=== PATIENT | male | born 1945 | race Caucasian/White ===

== ENCOUNTER → 2016-10-29 | Outpatient (CLI) | payer OTHER, MEDICARE | LOC: FIMAGING 11:28 | PROVIDERS: ATTEND Internal Medicine Hematology & Oncology | DX: J90 Pleural effusion, not elsewhere classified (principal); C92.10 Chronic myeloid leukemia, BCR/ABL-positive, not having achieved remission ==

== ENCOUNTER → 2017-09-04 | Outpatient (CLI) | payer OTHER, MEDICARE ==
[~2017-09-04] MED LIST: IOPAMIDOL (ISOVUE 370) 100 ML BTL IV ONE
== END ==
LOC: FIMAGING 09:54
PROVIDERS: ATTEND Internal Medicine Cardiovascular Disease
DX: I73.9 Peripheral vascular disease, unspecified (principal); I77.1 Stricture of artery; I70.1 Atherosclerosis of renal artery
CPT/HCPCS: 75635; Q9967

== ENCOUNTER → 2017-11-17 | Outpatient (CLI) | payer OTHER, MEDICARE | LOC: BHFA 15:30 | PROVIDERS: ATTEND Internal Medicine Cardiovascular Disease | DX: I73.9 Peripheral vascular disease, unspecified (principal) ==

== ENCOUNTER → 2017-11-24 | Day surgery (SDC) | payer OTHER, MEDICARE ==
[~2017-11-24] MED LIST changes: +ASPIRIN EC 325 MG TAB PO ONE; +DIAZEPAM 5 MG TAB PO ONE; +FAMOTIDINE 20 MG TAB PO ONE; +HEPARIN 10,000 UNIT/10 ML MDV (1,000 UNIT/ML) ONE; -IOPAMIDOL (ISOVUE 370) 100 ML BTL IV ONE; +IOPAMIDOL (ISOVUE-300) 150 ML BTL ONE; +IOPAMIDOL (ISOVUE-370) 150 ML BTL IV ONE; +LIDOCAINE 1% 300 MG/30 ML SDV ONE; +MIDAZOLAM 2 MG/2 ML VIAL ONE; +NITROGLYCERIN 0.4 MG BTL SL PRN; +NS 1,000 ML IV ONE; +diphenhydrAMINE 25 MG CAP PO ONE; +fentaNYL 100 MCG/2 ML INJ ONE
--- NOTE | 2017-11-24 07:52 | CPEKG ---
Heart Rate: 66 RR Interval: 909 P-R Interval: 176 QRSD Interval: 92 QT Interval: 388 QTC Interval: 407 P [place]: 81 QRS [place]: 86 T Wave [place]: 46 EKG Severity - OTHERWISE NORMAL ECG - EKG Impression: SINUS RHYTHM EKG Impression: BORDERLINE RIGHT AXIS DEVIATION EKG Impression: No significant change from December 13, 2011 Electronically Signed By: Devon Swanson 24-Nov-2017 10:42:33
[2017-11-24 08:08] LABS: PLATELET COUNT 216 10^3/uL (150-400)
[2017-11-24 08:16] LABS: INR 0.95 (0.83-1.16); PROTIME(PATIENT) 12.9 SEC (12.0-15.0)
--- NOTE | 2017-11-24 08:27 | PDHPUP ---
History & Physical Update H&P update statement: This history and physical update is based on an assessment of the patient which was completed after admission or registration (within 24 hours), but prior to the surgery/procedure. H&P update: H&P reviewed & patient examined, no change in patient's condition since H&P completed
--- NOTE | 2017-11-24 08:27 | PDPROPOC ---
Sedation Plan of Care Sedation Plan of Care: vital signs stable, mental status noted, patient educated of risks, benefits, alternatives, patient can tolerate sedation ASA Classification: ASA 2 Planned drugs: fentanyl, midazolam Mallampati Score: Class 1 Mallampati Reference Image: Patient passed 3-3-2 rule?: Yes
--- NOTE | 2017-11-24 10:43 | CPIP ---
[f rep st] INVASIVE CARDIAC PROCEDURE DATE OF PROCEDURE: 11/24/2017 PROCEDURES PERFORMED: 1. Abdominal aortography. 2. Left lower extremity angiography via contralateral approach with catheter placed in the left comm on femoral artery. 3. Right lower extremity angiography via ipsilateral approach with catheter placed in the right comm on iliac artery. INDICATION: Progressive claudication. ACCESS: The patient was prepped and draped in the sterile fashion. 1% lidocaine was used to anesthe tize the right inguinal region. A 6-Lao introducer sheath was placed selectively into the right c ommon femoral artery via modified Seldinger technique. ABDOMINAL AORTOGRAPHY: A 6-Lao pigtail catheter was placed in the abdominal aorta and position ve rified by angiography. Images were obtained via power injection through the [employer] system. The abdo henok aorta bifurcated into left and right renal arteries. The right renal artery appeared to have a n ostial 40% stenosis present. The left renal artery had a proximal 60% stenosis present. The remai nder of the aorta was free of any significant disease. In the distal portion of the aorta the blood vessel bifurcated into the left and right common iliac arteries. The left lower extremity angiograph y via contralateral approach with catheter placed in the left common femoral artery. A Contra 2 cath eter was advanced into the distal abdominal aorta and reformed into its usual shape. The Contra 2 ca theters then used to engage the left common iliac artery. The left common iliac artery then bifurcat ed into the left internal iliac artery and left external iliac artery. The left common iliac artery had mild luminal irregularities throughout. There was no stenosis greater than 10%. The left biology intern al iliac artery had an ostial 20% stenosis present. The left external iliac artery appeared normal. The left external iliac artery then turned into the left common femoral artery. The left common fem oral artery appeared normal. An angled Glidewire was then advanced into the left superficial femoral artery and the Contra 2 catheter was exchanged for a straight flush catheter and imaging of the sage sarah of the left lower extremity was obtained. The left common femoral artery bifurcated into the l eft superficial femoral artery and left profunda femoral artery. The left common femoral artery appe ared normal. The left superficial femoral artery was diffusely diseased in the proximal segment with 6 lesions approaching 80% severity. In the mid segment, there is a single discrete occlusion approx imately 10 cm. The vessel then reconstituted prior to turning into the popliteal artery. The poplit eal artery had a proximal 70% stenosis present as well as a long segmental 50% stenosis in the mid ve ssel. Below the knee, there was 2-vessel runoff. Right lower extremity angiography via ipsilateral approach with catheter placed in the right common iliac artery. The straight flush catheter was plac ed in the right common iliac artery and images obtained via hand injection. The right common iliac a rtery bifurcated into the right internal iliac artery and right external iliac artery. The right int ernal iliac artery had mild luminal irregularities with no stenosis greater than 10%. The right inte rnal iliac artery appeared normal. The right external iliac artery appeared normal. The remainder o f the right lower extremity was obtained via hand injection through the 6-Lao introducer sheath. The right common femoral artery bifurcated into the superficial femoral artery and profunda femoral a rtery. The right common femoral artery had mild luminal irregularities throughout. There was no krystal nosis greater than 10%. The right superficial femoral artery had an ostial 95% stenosis present. In the mid vessel, there was a long segmental occlusion. The blood vessel recannulated in the mid to d istal region and then turned into the popliteal artery which appeared free of any significant disease . Below the knee there is 3 vessel runoff. COMPLICATIONS: None. CONCLUSIONS: 1. Bilateral renal artery stenosis, moderate in severity. 2. High-grade disease involving the left superficial femoral artery and popliteal artery. 3. High-grade disease involving the right superficial femoral artery at the ostium and proximal segm ent. 4. Plan is for surgical evaluation. /[id number]/MODL
== END | disposition home or self-care (01) ==
LOC: FCATH 07:17
PROVIDERS: ATTEND Internal Medicine Cardiovascular Disease
PROC: 04HC33Z Insertion of Infusion Device into Right Common Iliac Artery, Percutaneous Approach (ICD-10-PCS; principal; 2017-11-24)
PROC: 04HL33Z Insertion of Infusion Device into Left Femoral Artery, Percutaneous Approach (ICD-10-PCS; principal; 2017-11-24)
DX: I70.1 Atherosclerosis of renal artery (principal); I77.9 Disorder of arteries and arterioles, unspecified; I25.10 Atherosclerotic heart disease of native coronary artery without angina pectoris; E78.5 Hyperlipidemia, unspecified; C92.10 Chronic myeloid leukemia, BCR/ABL-positive, not having achieved remission
CPT/HCPCS: 36247; 75625; 75630; 75716; 93005; C1769; J1644; J2250; J3010; Q9967

== ENCOUNTER 2017-12-16 08:45 | Inpatient (IN) | payer OTHER, MEDICARE ==
[2017-12-16] MEDS ORDERED: LR 1,000 ML IV ONE (08:57)
[2017-12-16] MEDS ORDERED: LIDOCAINE 1% 2 ML INJ ID PRN (08:57)
[2017-12-16] MEDS ORDERED: THROMBIN (BOVINE) 20,000 UNIT SPRAY TP ONE (09:05)
[2017-12-16] MEDS ORDERED: PROTAMINE SULFATE 50 MG/5 ML VIAL IVP ONE (09:05)
[2017-12-16] MEDS ORDERED: PAPAVERINE HCL 60 MG/2 ML SDV ONE (09:05)
[2017-12-16] MEDS ORDERED: BUPIVACAINE 0.5% 30 ML SDV ONE (09:05)
[2017-12-16] MEDS ORDERED: IOTHALAMATE MEG (CONRAY) 50 ML VIAL IV ONE (09:06)
--- NOTE | 2017-12-16 09:38 | PDANEPAE ---
ANE History of Present Illness PAD s/f L fem/pop ANE Past Medical History - Cardiovascular History Hx Hypertension: No Hx Arrhythmias: No Hx Chest Pain: No Hx Coronary Artery / Peripheral Vascular Disease: Yes Hx CHF / Valvular Disease: No Hx Palpitations: No Cardiovascular History Comment: PULM HTN SECONDARY TO RX - Pulmonary History Hx COPD: No Hx Asthma/Reactive Airway Disease: No Hx Recent Upper Respiratory Infection: No Hx Oxygen in Use at Home: No Hx Sleep Apnea: No Sleep Apnea Screening Result - Last Documented: Positive Pulmonary History Comment: PLEURAL EFFUSION SECONDARY TO MEDICATION - Neurologic History Hx Seizures: No - Endocrine History Hx Diabetes: No - Renal History Hx Renal Disorders: Yes Renal History Comment: RENAL ARTERY STENOSIS - Liver History Hx Hepatic Disorders: No - Neurological & Psychiatric Hx Hx Neurological and Psychiatric Disorders: No - Cancer History Hx Cancer: Yes Cancer History Comment: LEUKEMIA. PROSTATE - Congenital Disorder History Hx Congenital Disorders: No - GI History Hx Gastrointestinal Disorders: Yes Gastrointestinal History Comment: REFLUX - Other Health History Other Health History: PVD - Chronic Pain History Chronic Pain: Yes (LOWER LEGS AND FEET) - Surgical History Prior Surgeries: BRACHY THERAPY OF PROSTATE. LT KNEE ACL ANE Review of Systems Review of Systems: - Exercise capacity METS (RN): 4 METS ANE Patient History - Allergies Allergies/Adverse Reactions: adhesive tape Allergy (Verified 12/09/17 11:24) BLISTERS latex Allergy (Verified 11/19/17 13:45) monosodium glutamate Allergy (Verified 12/09/17 11:23) ASTHMA - Home Medications Home medications: home medication list seen and reviewed Home Medications: Acetaminophen [Tylenol 325mg (*)] 325 mg PO Q6HRS PRN 11/17/17 [Last Taken Unknown] Albuterol [Proventil Inhaler HFA (*)] 1 - 2 puffs IH Q4H PRN 11/17/17 [Last Taken Unknown] Aspirin [Aspirin 81mg (*)] 81 mg PO HS 11/17/17 [Last Taken 12/09/17] Atorvastatin Calcium [Lipitor] 40 mg PO DAILY 11/17/17 [Last Taken 12/16/17 07: 00] Bosutinib [Bosulif] 500 mg PO DAILY@12 11/17/17 [Last Taken 12/15/17 12:00] Multivitamins [Multivitamin (*)] 1 each PO DAILY 11/17/17 [Last Taken 12/09/17] amLODIPine BESYLATE [Norvasc 5 mg (*)] 5 mg PO DAILY 11/17/17 [Last Taken 07:00] Herbals/Supplements -Info Only 1 ea PO DAILY 12/16/17 [Last Taken Unknown] - NPO status NPO Since - Liquids (Date): 12/16/17 NPO Since - Liquids (Time): 08:00 (pom juice) NPO Since - Solids (Date): 12/15/17 NPO Since - Solids (Time): 19:00 - Anes Hx Anes Hx: no prior problems - Smoking Hx Smoking Status: Never smoked - Alcohol Use Alcohol Use: Rarely ANE Labs/Vital Signs - Labs - CBC WBC: reviewed and okay - Vital Signs Blood Pressure: 130/63 Heart Rate: 60 Respiratory Rate: 14 O2 Sat (%): 96 Height: 182.88 cm Weight: 70.307 kg ANE Physical Exam - Airway Neck exam: FROM Mallampati Score: Class 2 Mouth exam: normal dental/mouth exam - Pulmonary Pulmonary: no respiratory distress - Cardiovascular Cardiovascular: regular rate and rhythym - ASA Status ASA Status: II ANE Anesthesia Plan Anesthesia Plan: general endotracheal anesthesia Total IV Anesthesia: No
[2017-12-16] MEDS ORDERED: ceFAZolin 2 GM/SWFI 2 GM/20 ML SYR IVP ONE (09:47)
[2017-12-16] MEDS ORDERED: fentaNYL 100 MCG/2 ML INJ ONE ×2 (09:53→11:01)
[2017-12-16] MEDS ORDERED: LIDOCAINE 2% 100 MG/5 ML SYR ONE (09:53)
[2017-12-16] MEDS ORDERED: PROPOFOL/EMULSION 500 MG/50 ML BOTTLE IV ONE ×2 (09:53→11:38)
[2017-12-16] MEDS ORDERED: LIDOCAINE 2% JELLY 5 ML TUBE ONE (09:58)
[2017-12-16] MEDS ORDERED: DEXAMETHASONE 4 MG/ML VIAL ONE ×2 (10:03)
[2017-12-16] MEDS ORDERED: HEPARIN 10,000 UNIT/10 ML MDV (1,000 UNIT/ML) ONE (11:31)
[2017-12-16] MEDS ORDERED: epHEDrine SULFATE 10 MG/ML SYR ONE ×2 (11:41)
[2017-12-16] MEDS ORDERED: PHENYLEPHRINE HCL 100 MCG/ML SYR ONE (12:49)
[2017-12-16] MEDS ORDERED: ALBUTEROL 3 ML DEYVIAL IH PRN (13:13)
[2017-12-16] MEDS ORDERED: ACETAMINOPHEN 500 MG TAB PO PRN (13:13)
[2017-12-16] MEDS ORDERED: LR 500 ML IV PRN (13:13)
[2017-12-16] MEDS ORDERED: LABETALOL HCL 5 MG/ML 20 ML MDV IVP PRN (13:13)
[2017-12-16] MEDS ORDERED: PHENYLEPHRINE HCL 100 MCG/ML SYR IVP PRN (13:13)
[2017-12-16] MEDS ORDERED: ONDANSETRON 4 MG/2 ML VIAL IVP PRN ×2 (13:13→13:50)
[2017-12-16] MEDS ORDERED: PROMETHAZINE HCL 25 MG/ML INJ IVP PRN (13:13)
[2017-12-16] MEDS ORDERED: MEPERIDINE 25 MG/0.5 ML AMP IVP PRN (13:13)
[2017-12-16] MEDS ORDERED: oxyCODONE IR 5 MG TAB PO PRN (13:13)
[2017-12-16] MEDS ORDERED: fentaNYL 100 MCG/2 ML INJ IVP PRN (13:13)
[2017-12-16] MEDS ORDERED: METOCLOPRAMIDE 10 MG/2 ML VIAL IVP PRN (13:13)
[2017-12-16] MEDS ORDERED: HYDROCODONE/APAP 5/325 TAB PO PRN (13:13)
[2017-12-16] MEDS ORDERED: DEXAMETHASONE 4 MG/ML VIAL IVP PRN (13:13)
[2017-12-16] MEDS ORDERED: NALOXONE HCL 0.4 MG/ML INJ IVP PRN (13:13)
[2017-12-16] MEDS ORDERED: OXYCODONE/APAP 5/325 TAB PO PRN (13:50)
[2017-12-16] MEDS ORDERED: HYDROmorphone HCL/NS 0.5 MG/ML SYR IVP PRN (13:50)
[2017-12-16] MEDS ORDERED: ALBUTEROL 60 PUFFS/8 GM MDI IH PRN (13:50)
--- NOTE | 2017-12-16 13:53 | POSTOPPROG ---
Post Op Note Date of Operation: 12/16/17 Surgeon: Alexander Jeong Supervisor Statement Clerks: Kait Allen Anesthesiologist: Chad Aguilera Anesthesia: GET(General Endotracheal) Pre-op Diagnosis: limiting claudication, PAD Post-op Diagnosis: same Procedure: L below knee fem pop bypass c reverse saphenous vein graft Findings: palpable pedal pulse post procedure Inf/Abcess present in the surg proc area at time of surgery?: No EBL: 50-100 Complications: none
[2017-12-16] MEDS ORDERED: NS W/ 20 KCl/L 1,000 ML IV SCH (14:00)
--- NOTE | 2017-12-16 14:38 | PDMN ---
Medical Necessity Medical necessity: IP surgery per [facility] cpt [id number] L fem pop bypass
[2017-12-16] MEDS: ASPIRIN 81 MG CHEWABLE TAB PO SCH (20:49)
[2017-12-16] MEDS: DOCUSATE SODIUM 100 MG CAP PO SCH (20:51)
[2017-12-16] MEDS ORDERED: CALCIUM CARBONATE 500 MG CHEWABLE TAB PO PRN (21:03)
[2017-12-17] MEDS: amLODIPine BESYLATE 5 MG TAB PO SCH (08:07)
[2017-12-17] MEDS: ATORVASTATIN CALCIUM 40 MG TAB PO SCH (08:07)
[2017-12-17] MEDS: DOCUSATE SODIUM 100 MG CAP PO SCH ×2 (08:07→20:51)
--- NOTE | 2017-12-17 10:59 | SOAPPROG ---
ANTONI Progress Note Assessment/Plan: Assessment: 72 y/o M s/p left fem/pop bypass with saphenous vein graft POD#1 S: Reports that he is doing well. Pain well controlled. Would like to have lang removed and would like to get out of bed today. O: Alert Afebrile VSS Chest: CTA bilaterally LLE: dressing with serosang drainage on medial section. +pedal pulses with both doppler and palpation. Mild edema. Plan: RN to change dressing today. D/c lang. Ok to get OOB with PT. Discussed with pt avoiding bending LLE at knee as much as possible. 12/17/17 10:56 Objective: Vital Signs Temp Pulse Resp BP Pulse Ox 36.6 C 63 14 129/69 H 96 12/17/17 08:00 12/17/17 08:00 12/17/17 08:00 12/17/17 08:07 12/17/17 08:00 Laboratory Results 12/17/17 04:10 12/17/17 04:10 12/16/17 12/17/17 12/18/17 05:59 05:59 05:59 Intake Total 3040 Output Total 1700 Balance 1340 ICD10 Worksheet Patient Problems: Problems Problem Status Onset Peripheral vascular disease Acute - ICD10 Problem Qualifiers (1) Peripheral vascular disease
[2017-12-17] MEDS: BOSUTINIB 500 MG PO SCH (13:49)
[2017-12-17] MEDS: ASPIRIN 81 MG CHEWABLE TAB PO SCH (20:51)
[2017-12-18] MEDS: amLODIPine BESYLATE 5 MG TAB PO SCH (07:58)
[2017-12-18] MEDS: ATORVASTATIN CALCIUM 40 MG TAB PO SCH (07:58)
[2017-12-18] MEDS: DOCUSATE SODIUM 100 MG CAP PO SCH ×2 (08:00→20:53)
[2017-12-18] MEDS: ENOXAPARIN 40 MG/0.4 ML SYR SC SCH (08:00)
[2017-12-18] MEDS: BOSUTINIB 500 MG PO SCH (12:22)
--- NOTE | 2017-12-18 15:02 | SOAPPROG ---
ANTONI Progress Note Assessment/Plan: Assessment: 72 y/o M s/p left fem/pop bypass with saphenous vein graft POD#1 S: Reports that he is doing well. Pain well controlled. Would like to have lang removed and would like to get out of bed today. O: Alert Afebrile VSS Chest: CTA bilaterally LLE: dressing with serosang drainage on medial section. +pedal pulses with both doppler and palpation. Mild edema. Plan: RN to change dressing today. D/c lang. Ok to get OOB with PT. Discussed with pt avoiding bending LLE at knee as much as possible. 12/17/17 10:56 12/18/17 15:00 Continuing to improve. Got up with PT several times yesterday. Some soreness with ambulation, but otherwise pain is controlled. Pt thinks he'll be ready to go home tomorrow. Afebrile. +pedal pulses. Incisions cdi. Objective: Vital Signs Temp Pulse Resp BP Pulse Ox 36.9 C 78 16 132/59 H 94 12/18/17 08:00 12/18/17 08:00 12/18/17 08:00 12/18/17 08:00 12/18/17 08:00 Laboratory Results 12/17/17 04:10 12/17/17 04:10 12/17/17 12/18/17 12/19/17 05:59 05:59 05:59 Intake Total 3040 640 Output Total 1700 1225 Balance 1340 -585 ICD10 Worksheet Patient Problems: Problems Problem Status Onset Peripheral vascular disease Acute - ICD10 Problem Qualifiers (1) Peripheral vascular disease
--- NOTE | 2017-12-18 17:27 | ASMTCMCOM ---
CM Note CM Note Notes: Reviewed chart and discussed w/RN. Pt is s/p fem pop bypass. He lives at home w/. PT/OT have cleared pt . Anticipate dc home w/. CM available if any dc needs arise. Date Signed: 12/18/2017 05:26 PM Electronically Signed By:Julianne Jain RN
[2017-12-18] MEDS: ASPIRIN 81 MG CHEWABLE TAB PO SCH (20:53)
[2017-12-19 07:59] VITALS: BP 131/63
[2017-12-19] MEDS: amLODIPine BESYLATE 5 MG TAB PO SCH (09:25)
[2017-12-19] MEDS: DOCUSATE SODIUM 100 MG CAP PO SCH (09:25)
[2017-12-19] MEDS: ATORVASTATIN CALCIUM 40 MG TAB PO SCH (09:25)
[2017-12-19] MEDS: ENOXAPARIN 40 MG/0.4 ML SYR SC SCH (09:48)
--- NOTE | 2017-12-19 10:27 | SOAPPROG ---
ANTONI Progress Note Assessment/Plan: Assessment: 72 y/o M s/p left fem/pop bypass with saphenous vein graft POD#1 S: Reports that he is doing well. Pain well controlled. Would like to have lang removed and would like to get out of bed today. O: Alert Afebrile VSS Chest: CTA bilaterally LLE: dressing with serosang drainage on medial section. +pedal pulses with both doppler and palpation. Mild edema. Plan: RN to change dressing today. D/c lang. Ok to get OOB with PT. Discussed with pt avoiding bending LLE at knee as much as possible. 12/17/17 10:56 12/18/17 15:00 Continuing to improve. Got up with PT several times yesterday. Some soreness with ambulation, but otherwise pain is controlled. Pt thinks he'll be ready to go home tomorrow. Afebrile. +pedal pulses. Incisions cdi. 12/19/17 10:26 Continues to improve. Good pulses. Incisions cdi. Afebrile. H&H stable. Plan for discharge home today. Pt's will be home to help him. Follow up with Dr. Jeong next week. Objective: Vital Signs Temp Pulse Resp BP Pulse Ox 37.1 C 72 16 131/63 H 92 12/19/17 07:58 12/19/17 07:58 12/19/17 07:58 12/19/17 09:25 12/19/17 07:58 Laboratory Results 12/19/17 09:45 12/19/17 09:45 12/18/17 12/19/17 12/20/17 05:59 05:59 05:59 Intake Total 640 750 Output Total 1225 400 Balance -585 750 -400 ICD10 Worksheet Patient Problems: Problems Problem Status Onset Peripheral vascular disease Acute - ICD10 Problem Qualifiers (1) Peripheral vascular disease
[2017-12-19] MEDS: BOSUTINIB 500 MG PO SCH (11:23)
--- NOTE | 2017-12-22 19:12 | POSTANESTH ---
Post Anesthetic Evaluation Cardiovascular Status: Similar to Pre-Op Cond Respiratory Status: Similar to Pre-op Cond. Level of Consciousness/Mental Status: Can Participate in Eval Pain Control: Adequate, Prn Tx Ordered Nausea/Vomiting Control: Adequate, Prn Tx Ordered Complications Possibly Related to Anesthesia: None Noted (visited 12/17/17)
== END 2017-12-19 12:28 | disposition home or self-care (01) | DRG 253 ==
LOC: F2W 08:45 → F2N 14:52 → F3E 12-17 16:22
PROVIDERS: ADMIT Surgery; ATTEND Surgery
PROC: 041L09L Bypass Left Femoral Artery to Popliteal Artery with Autologous Venous Tissue, Open Approach (ICD-10-PCS; principal; 2017-12-16 10:15)
PROC: 06BQ0ZZ Excision of Left Saphenous Vein, Open Approach (ICD-10-PCS; principal; 2017-12-16 10:15)
DX: I70.213 Atherosclerosis of native arteries of extremities with intermittent claudication, bilateral legs (principal); I70.1 Atherosclerosis of renal artery; T45.1X5A Adverse effect of antineoplastic and immunosuppressive drugs, initial encounter; C92.10 Chronic myeloid leukemia, BCR/ABL-positive, not having achieved remission; I27.21 Secondary pulmonary arterial hypertension; I25.10 Atherosclerotic heart disease of native coronary artery without angina pectoris; E78.5 Hyperlipidemia, unspecified; K21.9 Gastro-esophageal reflux disease without esophagitis; Z85.46 Personal history of malignant neoplasm of prostate
CPT/HCPCS: 97116-GP; 97161-GP; 97165-GO; 97535-GO; G8978-GP-CI; G8979-GP-CH; G8987-GO-CJ; G8988-GO-CI; J0690; J1100; J1644; J1650; J2001; J2270; J2370; J2440; J2704; J2720; J3010; Q9961

== ENCOUNTER → 2018-02-17 | Outpatient (CLI) | payer OTHER, MEDICARE | LOC: FIMAGING 13:59 | PROVIDERS: ATTEND Physician Assistant | DX: M79.89 Other specified soft tissue disorders (principal); M79.662 Pain in left lower leg ==

== ENCOUNTER 2018-02-23 05:47 | Inpatient (IN) | payer OTHER, MEDICARE ==
[2018-02-23] MEDS ORDERED: ceFAZolin 2 GM/DEXTROSE 100 ML IV ONE (06:02)
[2018-02-23] MEDS ORDERED: LR 1,000 ML IV ONE (06:03)
[2018-02-23] MEDS ORDERED: LIDOCAINE 1% 2 ML INJ ID PRN (06:03)
[2018-02-23] MEDS ORDERED: LIDOCAINE 1% 2 ML INJ ONE (06:08)
[2018-02-23] MEDS ORDERED: ALBUTEROL 3 ML DEYVIAL IH PRN (07:01)
[2018-02-23] MEDS ORDERED: ONDANSETRON 4 MG/2 ML VIAL IVP PRN (07:01)
[2018-02-23] MEDS ORDERED: NS 500 ML IV PRN (07:01)
[2018-02-23] MEDS ORDERED: HYDROmorphONE/DILAUDID 1 MG/ML INJ IVP PRN ×2 (07:01→10:11)
[2018-02-23] MEDS ORDERED: fentaNYL 100 MCG/2 ML INJ IVP PRN (07:01)
[2018-02-23] MEDS ORDERED: NALOXONE HCL 0.4 MG/ML INJ IVP PRN (07:01)
--- NOTE | 2018-02-23 07:01 | PDANEPAE ---
ANE History of Present Illness here for fem pop ANE Past Medical History - Cardiovascular History Hx Hypertension: Yes Hx Arrhythmias: No Hx Chest Pain: No Hx Coronary Artery / Peripheral Vascular Disease: Yes Hx CHF / Valvular Disease: No Hx Palpitations: No Cardiovascular History Comment: PULM HTN SECONDARY TO RX. PVD - Pulmonary History Hx COPD: No Hx Asthma/Reactive Airway Disease: No Hx Recent Upper Respiratory Infection: No Hx Oxygen in Use at Home: No Hx Sleep Apnea: No Sleep Apnea Screening Result - Last Documented: Positive Pulmonary History Comment: reduced lung function r/t luekemia med - Neurologic History Hx Cerebrovascular Accident: No Hx Seizures: No Hx Dementia: No - Endocrine History Hx Diabetes: No - Renal History Hx Renal Disorders: No Renal History Comment: RENAL ARTERY STENOSIS - Liver History Hx Hepatic Disorders: No - Neurological & Psychiatric Hx Hx Neurological and Psychiatric Disorders: Yes Neurological / Psychiatric History Comment: 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 PROSTATE - Congenital Disorder History Hx Congenital Disorders: No - GI History Hx Gastrointestinal Disorders: Yes Gastrointestinal History Comment: REFLUX - Other Health History Other Health History: mild rash r/t leukemia medication to hands and arms. incontinence - Chronic Pain History Chronic Pain: No - Surgical History Prior Surgeries: BRACHY THERAPY OF PROSTATE. LT KNEE ACL. left fempop bypass ANE Review of Systems Review of systems is: negative Review of Systems: - Exercise capacity Exercise capacity: >=4 METS METS (RN): 4 METS ANE Patient History - Allergies Allergies/Adverse Reactions: adhesive tape Allergy (Verified 02/19/18 16:56) BLISTERS latex Allergy (Verified 02/19/18 16:56) monosodium glutamate Allergy (Verified 02/19/18 16:56) ASTHMA - Home Medications Home medications: home medication list seen and reviewed Home Medications: Aspirin [Aspirin 81mg (*)] 81 mg PO HS 11/17/17 [Last Taken 02/22/18] Atorvastatin Calcium [Lipitor] 40 mg PO DAILY 11/17/17 [Last Taken 02/22/18] Bosutinib [Bosulif] 500 mg PO DAILY@12 11/17/17 [Last Taken 02/21/18] Multivitamins [Multivitamin (*)] 1 each PO DAILY 11/17/17 [Last Taken 02/22/18] amLODIPine BESYLATE [Norvasc 5 mg (*)] 5 mg PO DAILY 11/17/17 [Last Taken ] Herbals/Supplements -Info Only 1 ea PO DAILY 12/16/17 [Last Taken 02/20/18] - NPO status NPO Status: no food or drink >8 hours NPO Since - Liquids (Date): 02/23/18 NPO Since - Liquids (Time): 01:00 NPO Since - Solids (Date): 02/22/18 NPO Since - Solids (Time): 19:00 - Smoking Hx Smoking Status: Never smoked - Family Anes Hx Family Hx Anesthesia Complications: none ANE Labs/Vital Signs - Vital Signs Vital Signs: reviewed preoperatively; see RN documention for details Blood Pressure: 127/64 Heart Rate: 65 Respiratory Rate: 22 O2 Sat (%): 91 Height: 182.88 cm Weight: 68.039 kg ANE Physical Exam - Airway Neck exam: FROM Mallampati Score: Class 1 - Pulmonary Pulmonary: no respiratory distress - Cardiovascular Cardiovascular: regular rate and rhythym - ASA Status ASA Status: II ANE Anesthesia Plan Anesthesia Plan: GA w LMA
[2018-02-23] MEDS ORDERED: fentaNYL 100 MCG/2 ML INJ ONE ×2 (07:04→07:49)
--- NOTE | 2018-02-23 07:10 | PDHPUP ---
History & Physical Update H&P update statement: This history and physical update is based on an assessment of the patient which was completed after admission or registration (within 24 hours), but prior to the surgery/procedure. H&P update: H&P reviewed & patient examined, no change in patient's condition since H&P completed H&P changes: Cardiac: Regular rate and rhythm. Respiratory: Lungs clear to auscultation bilaterally, no increased work of breathing.
[2018-02-23] MEDS ORDERED: THROMBIN (BOVINE) 20,000 UNIT SPRAY TP ONE (07:21)
[2018-02-23] MEDS ORDERED: BUPIVACAINE 0.25% 30 ML SDV ONE (07:21)
[2018-02-23] MEDS ORDERED: PROTAMINE SULFATE 50 MG/5 ML VIAL IVP ONE (07:21)
[2018-02-23] MEDS ORDERED: PROPOFOL/EMULSION 500 MG/50 ML BOTTLE IV ONE (07:28)
[2018-02-23] MEDS ORDERED: HYDROmorphONE/DILAUDID 2 MG/ML INJ ONE (09:47)
--- NOTE | 2018-02-23 10:10 | POSTOPPROG ---
Post Op Note Date of Operation: 02/23/18 Surgeon: Alexander Jeong Park Interpretive Ranger: Jacki Anesthesiologist: Bossman Anesthesia: GET(General Endotracheal) Pre-op Diagnosis: Peripheral vascular disease Post-op Diagnosis: same Indication: pain Procedure: Right fem-pop bypass with goretex graft, R popliteal endarterectomy Findings: Significant plaque throughout R SFA and R popliteal artery Inf/Abcess present in the surg proc area at time of surgery?: No Depth: Deep Incisional (Fascial) EBL: Minimal
[2018-02-23] MEDS ORDERED: oxyCODONE IR 5 MG TAB PO PRN (10:11)
[2018-02-23] MEDS ORDERED: ACETAMINOPHEN 325 MG TAB PO PRN (10:12)
[2018-02-23] MEDS ORDERED: ONDANSETRON DISINTEGRATING 4 MG TAB PO PRN (10:12)
[2018-02-23] MEDS ORDERED: IBUPROFEN 200 MG TAB PO PRN (10:13)
[2018-02-23] MEDS: BOSUTINIB 500 MG PO SCH (12:05)
--- NOTE | 2018-02-23 12:17 | PDMN ---
Medical Necessity Medical necessity: IP surgery per [facility] cpt [id number] R fem-pop bypass
--- NOTE | 2018-02-23 12:25 | ASMTCMCOM ---
CM Note CM Note Notes: Patient is s/p R fem-pop bypass with goretex graft and R popliteal endartectomy. He lives with his and is normally independent. PT has been ordered. Case Management will follow for discharge planning. Case Management d/c plan: TBD Date Signed: 02/23/2018 12:25 PM Electronically Signed By:Judie Landon RN
--- NOTE | 2018-02-23 15:55 | POSTANESTH ---
Post Anesthetic Evaluation Cardiovascular Status: Normal, Stable Respiratory Status: Normal, Stable Level of Consciousness/Mental Status: Can Participate in Eval Pain Control: Adequate, Prn Tx Ordered Nausea/Vomiting Control: Adequate, Prn Tx Ordered Complications Possibly Related to Anesthesia: None Noted
--- NOTE | 2018-02-23 18:03 | SOAPPROG ---
SOAP Progress Note Assessment/Plan: Assessment: POSTOP RIGHT FEM-POP BYPASS: DOING WELL, GOOD PULSES, WOUNDS CLEAN DRY AND INTACT Plan: AMBULATE IN THE A.M. 02/23/18 18:03 Objective: Vital Signs Temp Pulse Resp BP Pulse Ox 36.3 C 69 16 132/69 H 93 02/23/18 14:44 02/23/18 14:44 02/23/18 14:44 02/23/18 14:44 02/23/18 14:44 02/22/18 02/23/18 02/24/18 05:59 05:59 05:59 Intake Total 1290 Output Total 350 Balance 940 ICD10 Worksheet Patient Problems: Problems Problem Status Onset Peripheral vascular disease Acute
[2018-02-23] MEDS ORDERED: ASPIRIN 81 MG CHEWABLE TAB PO SCH (21:00)
[2018-02-24] MEDS ORDERED: ATORVASTATIN CALCIUM 40 MG TAB PO SCH (09:00)
[2018-02-24] MEDS ORDERED: amLODIPine BESYLATE 5 MG TAB PO SCH (09:00)
[2018-02-24] MEDS: BOSUTINIB 500 MG PO SCH (12:53)
--- NOTE | 2018-02-24 14:53 | ASMTCMCOM ---
CM Note CM Note Notes: PT has seen pt and cleared. Anticipate d/c with no CM needs but will continue to follow for any change in needs. Date Signed: 02/24/2018 02:52 PM Electronically Signed By:AYAD Batista
[2018-02-24 15:03] VITALS: BP 121/61
--- NOTE | 2018-02-24 16:42 | SOAPPROG ---
SOAP Progress Note Assessment/Plan: Assessment: POSTOP RIGHT FEM-POP BYPASS: DOING WELL, GOOD PULSES, WOUNDS CLEAN DRY AND INTACT Plan: AMBULATE IN THE A.M. 02/23/18 18:03 02/24/18 16:40 DOING VERY WELL/EXCELLENT PULSES/WOUND OKAY/AFEBRILE/AMBULATING ADEQUATELY PLAN HOME TODAY/LIMITATIONS DISCUSSED Objective: Vital Signs Temp Pulse Resp BP Pulse Ox 36.6 C 61 18 121/61 H 97 02/24/18 14:58 02/24/18 14:58 02/24/18 14:58 02/24/18 14:58 02/24/18 14:58 02/23/18 02/24/18 02/25/18 05:59 05:59 05:59 Intake Total 3240 Output Total 1700 400 Balance 1540 -400 ICD10 Worksheet Patient Problems: Problems Problem Status Onset Peripheral vascular disease Acute
--- NOTE | 2018-03-05 18:40 | GOP ---
[f rep st] OPERATIVE REPORT DATE OF OPERATION: 02/23/2018 SURGEON: Alexander Jeong MD IRRIGATION FLUME LAYER: Ling Echeverria NP. ANESTHESIOLOGIST: Dr. Keita. PREOPERATIVE DIAGNOSIS: Right leg claudication. POSTOPERATIVE DIAGNOSIS: Right leg claudication. PROCEDURE PERFORMED: Right femoral-popliteal bypass with [place] graft and a right popliteal artery endarterectomy. FINDINGS: The patient was found to have significant plaque throughout his right SFA and popliteal ar leslie. It was a very soft plaque and easy to dissect. This required endarterectomy at the proximal p opliteal artery to have a patent bypass. DESCRIPTION OF PROCEDURE: The patient was taken to the operating room where he received a satisfacto ry general endotracheal anesthesia by Dr. Keita. He was placed in the supine position, prepped and draped in usual sterile fashion. A right groin incision was made, and dissection was carried down th rough the subcutaneous tissue. The superficial femoral, profunda femoris, and common femoral arterie s were dissected free and controlled with vessel loops. A second incision was made in the medial asp ect of the thigh. Dissection extended down the Héctor canal, which was widely opened, and dissection extended down to the popliteal artery and posteriorly behind the knee. Popliteal artery was control led with vessel loops. Patient was systemically heparinized, and after adequate circulation time, th e soft popliteal artery was opened; however, it was filled with some dissecting plaque. A distal end arterectomy was done down to a good feathered end. The plaque was anchored down with 6-0 Prolene sut ures. There was adequate backflow from the distal popliteal artery. An end-to-side 6 mm [place] gr aft was sutured to the popliteal artery with a running Hemashield 7 suture. The wound irrigated well , and there was some backflow from the [place] vessels. The [place] graft was then passed through a subsartorial tunnel up to the groin incision, with care to avoid twisting or kinking of the graft. P roximal anastomosis was made to the common femoral artery in an end-to-side manner. This was done wi th a Hemashield 6 suture. All vessels were flushed prior to completion of the anastomosis, and flow was first established down the superficial femoral artery, then down the profunda femoris artery, and then down the bypass graft. The patient responded with excellent blood flow down the leg and palpab le pedal pulses. The suture line appeared to be hemostatic. Heparin was reversed with protamine. W ounds were irrigated, and hemostasis was assured. Topical thrombin was placed in both incisions, and they were closed with 2-0 Vicryl for the deep fascia, 3-0 Vicryl for the subcu, and 4-0 Monocryl mat tress sutures for the skin. He tolerated the procedure well. He was taken to the recovery room in g ood condition. Blood loss was negligible. There were no complications. /[id number]/MODL
--- NOTE | 2018-03-12 12:38 | GDS ---
[f rep st] DISCHARGE SUMMARY DISCHARGE DIAGNOSES: Peripheral vascular disease. CONSULTATIONS: None. SPECIAL TESTS: None. PROCEDURES: Right femoral popliteal bypass with [place] graft and a right popliteal artery endarter ectomy. INTRAOPERATIVE FINDINGS: The patient was found to have significant plaque throughout his right SFA a nd popliteal artery. It was very soft plaque and easy to dissect. This required an endarterectomy at the proximal popliteal artery to have a patent bypass. HOSPITAL COURSE: This is a 72-year-old male with a history of peripheral vascular disease who was ad mitted to the hospital to undergo planned right femoral popliteal bypass surgery on his right leg. He tolerated the procedure well and his postoperative course was unremarkable. On the day of his surge ry, he was kept on bedrest and asked to not bend his knee in a 90 degree angle. The day following hi s surgery, he was able to ambulate with Physical Therapy. His pain was well controlled. He had good pulses and his incisions were clean, dry, and intact. He was discharged on postop day 2 in good con dition. He was discharged home with his . He was asked to follow up in our office in 1 week. He was discharged on a baby aspirin as well as Lipitor 40 mg, in addition to his other daily medication s. He was asked to call our office with fever, chills, or increased pain. For an accurate medicatio n list, please see MAR. Burrell #: [id number]
== END 2018-02-24 17:46 | disposition home or self-care (01) | DRG 254 ==
LOC: F3N 05:47 → F3E 11:30
PROVIDERS: ADMIT Surgery; ATTEND Surgery
DX: I73.9 Peripheral vascular disease, unspecified (principal); I10 Essential (primary) hypertension; I27.20 Pulmonary hypertension, unspecified; K21.9 Gastro-esophageal reflux disease without esophagitis; I25.10 Atherosclerotic heart disease of native coronary artery without angina pectoris; E78.5 Hyperlipidemia, unspecified; Z85.46 Personal history of malignant neoplasm of prostate; Z85.6 Personal history of leukemia
CPT/HCPCS: 97161-GP; C1768; G8978-GP-CI; G8979-GP-CI; G8980-GP-CI; J0690; J1170; J1644; J2704; J2720; J3010

== ENCOUNTER → 2018-03-31 | Outpatient (CLI) | payer OTHER, MEDICARE ==
[~2018-03-31] MED LIST changes: -ASPIRIN EC 325 MG TAB PO ONE; -DIAZEPAM 5 MG TAB PO ONE; -FAMOTIDINE 20 MG TAB PO ONE; -HEPARIN 10,000 UNIT/10 ML MDV (1,000 UNIT/ML) ONE; +IOPAMIDOL (ISOVUE 370) 100 ML BTL IV ONE; -IOPAMIDOL (ISOVUE-300) 150 ML BTL ONE; -IOPAMIDOL (ISOVUE-370) 150 ML BTL IV ONE; -LIDOCAINE 1% 300 MG/30 ML SDV ONE; -MIDAZOLAM 2 MG/2 ML VIAL ONE; -NITROGLYCERIN 0.4 MG BTL SL PRN; -NS 1,000 ML IV ONE; -diphenhydrAMINE 25 MG CAP PO ONE; -fentaNYL 100 MCG/2 ML INJ ONE
== END ==
LOC: FIMAGING 13:54
PROVIDERS: ATTEND Surgery
DX: T82.868A Thrombosis due to vascular prosthetic devices, implants and grafts, initial encounter (principal); I70.213 Atherosclerosis of native arteries of extremities with intermittent claudication, bilateral legs
CPT/HCPCS: 75635; Q9967; 82565-PO

== ENCOUNTER 2018-04-06 12:44 | Inpatient (IN) | payer OTHER, MEDICARE ==
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
[2018-04-06] MEDS ORDERED: HEPARIN/DEXTROSE 500 ML IV ONE ×2 (13:05→13:09)
[2018-04-06 14:15] LABS: PLATELET COUNT 259 10^3/uL (150-400)
[2018-04-06 14:28] LABS: INR 1.15 (0.83-1.16); PROTIME(PATIENT) 14.9 SEC (12.0-15.0)
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
[2018-04-06] MEDS ORDERED: FLUMAZENIL 0.5 MG/5 ML MDV IVP PRN (15:41)
[2018-04-06] MEDS ORDERED: MEPERIDINE 25 MG/ML SYR IVP PRN (15:41)
[2018-04-06] MEDS ORDERED: ALTEPLASE 2 MG VIAL IVP PRN (15:41)
[2018-04-06] MEDS ORDERED: HEPARIN 10,000 UNIT/10 ML MDV (1,000 UNIT/ML) IVP PRN (15:41)
[2018-04-06] MEDS ORDERED: GLUCAGON HCL 1 MG VIAL IVP PRN (15:41)
[2018-04-06] MEDS ORDERED: NALOXONE HCL 0.4 MG/ML INJ IVP PRN (15:41)
[2018-04-06] MEDS ORDERED: PROTAMINE SULFATE 50 MG/5 ML VIAL IVP PRN (15:41)
[2018-04-06] MEDS ORDERED: LIDOCAINE 1% 300 MG/30 ML SDV ONE (16:40)
[2018-04-06] MEDS ORDERED: IOPAMIDOL (ISOVUE-370) 150 ML BTL IV ONE ×2 (16:41→18:04)
[2018-04-06] MEDS ORDERED: NALOXONE HCL 0.4 MG/ML INJ ONE (16:42)
[2018-04-06] MEDS ORDERED: fentaNYL 100 MCG/2 ML INJ ONE ×2 (16:42→19:47)
[2018-04-06] MEDS ORDERED: FLUMAZENIL 0.5 MG/5 ML MDV IVP ONE (16:43)
[2018-04-06] MEDS ORDERED: MIDAZOLAM 2 MG/2 ML VIAL ONE (16:43)
[2018-04-06] MEDS ORDERED: ALTEPLASE 5 MG in NS 100 ML IV SCH (18:00)
[2018-04-06] MEDS ORDERED: ALTEPLASE 5 MG in NS 100 ML IV ONE (18:00)
[2018-04-06] MEDS ORDERED: HEPARIN/DEXTROSE 25,000 UNIT/500 ML BAG ONE (18:25)
[2018-04-06] MEDS ORDERED: PROMETHAZINE HCL 25 MG/ML INJ IVP PRN (18:52)
[2018-04-06] MEDS: fentaNYL 100 MCG/2 ML INJ IVP PRN (18:56)
[2018-04-06] MEDS: MIDAZOLAM 2 MG/2 ML VIAL IVP PRN (18:56)
[2018-04-06] MEDS ORDERED: HEPARIN/DEXTROSE 500 ML IV SCH (19:00)
--- NOTE | 2018-04-06 19:00 | PDRADPN ---
Radiology Procedure Note Date of Procedure: 04/06/18 Radiologist: Leora Dumont Anesthesia: IV Sedation Pre-op Diagnosis: RLE ARTERIAL CLOT Post-op Diagnosis: SAME Indication: CLOTTED RT FEM-POP GRAFT Procedure: ANGIOGRAM WITH RUNOFF. TPA LYSIS. Finding(s): 1. CLOTTED FEM-POP GRAFT ON RT. 2. LONG SEGMENT DISSECTION POP TO CAFE AIDE; HIGH GRADE AT POP ARTERY. 3. OTHERWISE GOOD RUNOFF TO FOOT, BUT SLOW. Inf/Abcess present in the surg proc area at time of surgery?: No
[2018-04-06] MEDS: ALTEPLASE 5 MG in NS 100 ML IV SCH ×2 (19:18→21:33)
[2018-04-06] MEDS ORDERED: fentaNYL 100 MCG/2 ML INJ IVP ONE (19:45)
[2018-04-06] MEDS: LORazepam 1 MG TAB PO PRN (20:34)
[2018-04-06] MEDS: D5W 1/2 NS W/ 20 KCl/L 1,000 ML IV SCH (20:49)
[2018-04-06] MEDS: ASPIRIN 325 MG TAB PO SCH (20:49)
[2018-04-06] MEDS: HYDROmorphONE/DILAUDID 1 MG/ML INJ IVP PRN (21:20)
[2018-04-07] MEDS: ALTEPLASE 5 MG in NS 100 ML IV SCH ×3 (00:16→11:00)
[2018-04-07 06:28] LABS: PLATELET COUNT 154 10^3/uL (150-400)
[2018-04-07] MEDS: ATORVASTATIN CALCIUM 40 MG TAB PO SCH (08:02)
[2018-04-07] MEDS: amLODIPine BESYLATE 5 MG TAB PO SCH (08:02)
[2018-04-07] MEDS: MULTIVITAMINS 1 EACH TAB PO SCH (08:03)
[2018-04-07] MEDS: ASPIRIN 325 MG TAB PO SCH (08:03)
--- NOTE | 2018-04-07 10:08 | PDMN ---
Medical Necessity Medical necessity: [facility] [id number] Percutaneous Revascularization, Lower Extremity: 72 y/o w/ recent R fem pop bypass w/ increasing pain right foot, numbness and discoloration in foot. Occlusion of fem pop bypass. Urgent IR eval, angiography and thrombolysis w/ TPA. Cont w/ IV fluids post procedure, heparin drip, TPA drip, and IV opioids. Hx Multiple Myeloma.
[2018-04-07] MEDS: BOSUTINIB 500 MG PO SCH (10:36)
--- NOTE | 2018-04-07 12:25 | GCON ---
[f rep st] CONSULTATION PRINTING ESTIMATOR CONSULTATION NOTE DATE OF CONSULTATION: 04/07/2018 REASON FOR ADMISSION: Fem-pop bypass with clotting. HISTORY OF PRESENT ILLNESS: The patient is a very pleasant 72-year-old white male with a very extens praneeth past medical history including coronary artery disease, hyperlipidemia, leukemia, pulmonary hyper tension, severe peripheral vascular disease, renal artery stenosis. Again, he presents with arterial clot of his fem-pop bypass. He has been seen by Interventional Radiology. He has undergone localiz ed tPA with EKOS. Currently, he is resting comfortably awaiting going back. He states that his foot feels markedly improved after treatment last night. He is currently resting comfortably. He denies any chest pain, pleuritic-type chest pain or angina equivalent. There is no fever or night sweats. REVIEW OF SYSTEMS: A 10-point review of systems was performed and is negative with the exception of what is listed in HPI. PAST MEDICAL HISTORY: Significant for severe peripheral vascular disease, pulmonary hypertension, le ukemia, hyperlipidemia, coronary artery disease, renal artery stenosis. ALLERGIES: Latex. SOCIAL HISTORY: Lifelong never smoker. No significant alcohol use. 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 He is , has good family support. MEDICATIONS: At home include ibuprofen, atorvastatin, aspirin, amlodipine. FAMILY HISTORY: Noncontributory. PHYSICAL EXAM: VITAL SIGNS: Blood pressure is 114/55, pulse 57, respirations 24, temperature 37.2, oxygen saturation 98% on 2 L. GENERAL: He is a well-developed, elderly white male who is resting co mfortably, in no acute distress. HEENT: Eyes are PERRLA, EOMI. Throat shows no erythema or tonsill ar hypertrophy. NECK: Supple. No cervical adenopathy. HEART: Regular rate and rhythm with a 2/6 systolic murmur left sternal border without radiation. LUNGS: Diminished breath sounds but no wheez e. ABDOMEN: Soft, nontender. Bowel sounds are present all 4 quadrants. EXTREMITIES: No clubbing, cyanosis, or edema. LABORATORIES: White count 6.8, hemoglobin 8.6, hematocrit 27, platelet count is 154. Sodium 137, po tassium 4.2, chloride 108, CO2 is 23, BUN 14, creatinine 0.9, glucose is 100. IMPRESSION: 1. Severe peripheral vascular disease. 2. Arterial clot of bypass. 3. Status post arterial thrombectomy with localized tPA. 4. Coronary artery disease. 5. Hyperlipidemia. 6. Pulmonary hypertension. 7. Renal artery stenosis. RECOMMENDATIONS: 1. Localized tPA per Interventional Radiology. 2. DVT and PE prophylaxis. 3. Stress ulcer prophylaxis. 4. Adequate pain control. 5. The patient to lie flat for now. 6. Close cardiovascular monitoring. /[id number]/MODL
[2018-04-07] MEDS ORDERED: IOPAMIDOL (ISOVUE-300) 100 ML BTL ONE ×3 (14:51→17:05)
[2018-04-07] MEDS ORDERED: NALOXONE HCL 0.4 MG/ML INJ ONE (15:20)
[2018-04-07] MEDS ORDERED: fentaNYL 100 MCG/2 ML INJ ONE (15:21)
[2018-04-07] MEDS ORDERED: FLUMAZENIL 0.5 MG/5 ML MDV IVP ONE (15:21)
[2018-04-07] MEDS ORDERED: MIDAZOLAM 2 MG/2 ML VIAL ONE ×2 (15:21→17:12)
[2018-04-07] MEDS ORDERED: MIDAZOLAM 2 MG/2 ML VIAL IVP PRN (15:22)
[2018-04-07] MEDS ORDERED: fentaNYL 100 MCG/2 ML INJ IVP PRN (15:22)
[2018-04-07] MEDS ORDERED: FLUMAZENIL 0.5 MG/5 ML MDV IVP PRN (15:22)
[2018-04-07] MEDS ORDERED: NALOXONE HCL 0.4 MG/ML INJ IVP PRN (15:22)
[2018-04-07] MEDS ORDERED: NS 1,000 ML IV SCH (15:30)
[2018-04-07] MEDS: fentaNYL 100 MCG/2 ML INJ IVP PRN (15:34)
[2018-04-07] MEDS: MIDAZOLAM 2 MG/2 ML VIAL IVP PRN (15:34)
--- NOTE | 2018-04-07 16:31 | ASMTCASEMG ---
Living Arrangements What is your living Answers: With Spouse arrangement? Who do you live with? Type Of Residence What kind of residence do Answers: House you live in? Discharge Plan Comments Coordination Status Comments Notes: Patient is a 72yo male who arrives [facility] from [facility] in [place] with concern for an ischemic right leg. Patient had a right femoral artery [place] graft and popliteal endarerectomy performed by Dr. Jeong on February for right leg claudication. Patient has been admitted for fem-pop bypass with clotting. No therapies have been ordered at this time. D/C plan TBD. CM will follow. Date Signed: 04/07/2018 04:31 PM Electronically Signed By:Joleen Quispe LCSW
[2018-04-07] MEDS ORDERED: HEPARIN 10,000 UNIT/10 ML MDV (1,000 UNIT/ML) ONE (16:45)
[2018-04-07] MEDS ORDERED: HEPARIN/DEXTROSE 500 ML IV SCH ×2 (18:45→19:30)
[2018-04-07] MEDS: D5W 1/2 NS W/ 20 KCl/L 1,000 ML IV SCH ×2 (18:46→20:17)
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
[2018-04-07 20:05] LABS: PLATELET COUNT 156 10^3/uL (150-400)
[2018-04-07] MEDS: HEPARIN 10,000 UNIT/10 ML MDV (1,000 UNIT/ML) IVP PRN (20:07)
[2018-04-07 20:14] LABS: INR 1.34 (0.83-1.16); PROTIME(PATIENT) 16.8 SEC (12.0-15.0)
--- NOTE | 2018-04-07 22:35 | CPEKG ---
Test Reason : OPEN Blood Pressure : / mmHG Vent. Rate : 071 BPM Atrial Rate : 070 BPM P-R Int : 173 ms QRS Dur : 092 ms QT Int : 377 ms P-R-T Axes : 075 065 021 degrees QTc Int : 410 ms Sinus rhythm Atrial premature complex Confirmed by Jina Gibson ([id number]) on 04/07/2018 10:35:18 PM Referred By: Confirmed By:Jina Gibson
[2018-04-08] MEDS: LORazepam 1 MG TAB PO PRN ×2 (00:47→20:37)
[2018-04-08 06:45] LABS: PLATELET COUNT 174 10^3/uL (150-400)
[2018-04-08] MEDS: ceFAZolin 2 GM/DEXTROSE 100 ML IV SCH ×2 (07:40→15:21)
[2018-04-08 07:45] LABS: PLATELET COUNT 180 10^3/uL (150-400)
[2018-04-08 07:56] LABS: INR 1.33 (0.83-1.16); PROTIME(PATIENT) 16.7 SEC (12.0-15.0)
[2018-04-08] MEDS: ATORVASTATIN CALCIUM 40 MG TAB PO SCH (09:13)
[2018-04-08] MEDS: HEPARIN 10,000 UNIT/10 ML MDV (1,000 UNIT/ML) IVP PRN (09:13)
[2018-04-08] MEDS: amLODIPine BESYLATE 5 MG TAB PO SCH (09:13)
[2018-04-08] MEDS: MULTIVITAMINS 1 EACH TAB PO SCH (09:13)
--- NOTE | 2018-04-08 09:18 | PDINTPN ---
Media Librarian Progress Note Assessment/Plan: Assessment/plan: * Severe peripheral vascular disease * History of fem-pop bypass * Arterial clot-status post thrombectomy and localized tPA -per IR -continue to lie flat for now * History of pulmonary hypertension * Coronary disease * History of renal artery stenosis * Latex allergy * Pain-well controlled. Subjective: Resting comfortably in bed. Pain well controlled. Objective: Vital Signs Temp Pulse Resp BP Pulse Ox 37.7 C 69 16 126/57 H 97 04/08/18 08:00 04/08/18 09:00 04/08/18 09:00 04/08/18 09:13 04/08/18 09:00 Laboratory Results 04/08/18 07:20 04/08/18 07:20 04/07/18 04/08/18 04/09/18 05:59 05:59 05:59 Intake Total 2221 1918.4 Output Total 1200 1705 Balance 1021 213.4 PT 16.7 SEC (12.0-15.0) H 04/08/18 07:20 INR 1.33 (0.83-1.16) H 04/08/18 07:20 - Time Spent With Patient Time Spent With Patient: 25 min of time spent with patient, over 1/2 involved with coordination of care or counseling Physical Exam - Physical Exam General Appearance: alert, no apparent distress EENT: PERRL/EOMI Neck: non-tender, full range of motion, supple, normal inspection Respiratory: chest non-tender, lungs clear, normal breath sounds Cardiac/Chest: normal peripheral pulses, regular rate, rhythm, systolic murmur Abdomen: normal bowel sounds, non-tender, soft Male Genitalia: deferred Rectal: deferred Skin: normal color, warm/dry Extremities: normal range of motion, non-tender, normal inspection, normal capillary refill Neuro/Psych: no motor/sensory deficits, alert, normal mood/affect, oriented x 3 ICD10 Worksheet Patient Problems: Problems Problem Status Onset Vascular insufficiency of extremity Acute Peripheral vascular disease Acute
[2018-04-08] MEDS: BOSUTINIB 500 MG PO SCH (09:20)
--- NOTE | 2018-04-08 10:17 | SOAPPROG ---
SOTK Progress Note Assessment/Plan: Assessment/Plan: 72 Y M PAD hx B fem pop bypass surgeries, occluded R fem pop graft and possible popliteal a. dissection. s/p catheter directed thrombolysis and angioplasty. Palpable pedal pulses bilaterally now. Bleeding L groin early this am. Pressure dressing in place and appears to have stopped. Continue observation for now. Will eventually need blood thinners to maintain graft patency. alert, nad no wob rrr abd soft feet warm, pedal pulses palpable 04/08/18 11:52 Objective: Vital Signs Temp Pulse Resp BP Pulse Ox 37.7 C 71 22 H 130/48 H 98 04/08/18 08:00 04/08/18 10:00 04/08/18 10:00 04/08/18 10:00 04/08/18 10:00 Laboratory Results 04/08/18 07:20 04/08/18 07:20 04/07/18 04/08/18 04/09/18 05:59 05:59 05:59 Intake Total 2221 1918.4 Output Total 1200 1705 Balance 1021 213.4 PT 16.7 SEC (12.0-15.0) H 04/08/18 07:20 INR 1.33 (0.83-1.16) H 04/08/18 07:20 ICD10 Worksheet Patient Problems: Problems Problem Status Onset Vascular insufficiency of extremity Acute Peripheral vascular disease Acute
[2018-04-08] MEDS: ASPIRIN 325 MG TAB PO SCH (10:20)
[2018-04-08] MEDS: HYDROmorphONE/DILAUDID 1 MG/ML INJ IVP PRN (11:47)
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
[2018-04-09] MEDS: ceFAZolin 2 GM/DEXTROSE 100 ML IV SCH ×4 (07:45→23:01)
--- NOTE | 2018-04-09 08:55 | PDINTPN ---
Batter Depositor Progress Note Assessment/Plan: Assessment/plan: * Severe peripheral vascular disease * History of fem-pop bypass * Arterial clot-status post thrombectomy and localized tPA -catheter out -out of bed today * Bleeding-from groin site has resolved * Epistaxis-resolved * History of pulmonary hypertension * Coronary disease * History of renal artery stenosis * Latex allergy * Pain-well controlled. 04/09/18 08:53 Subjective: Resting comfortably. Pain better controlled. Good appetite. Objective: Vital Signs Temp Pulse Resp BP Pulse Ox 37.1 C 65 17 133/47 H 91 L 04/09/18 07:52 04/09/18 07:52 04/09/18 07:52 04/09/18 07:52 04/09/18 07:52 Laboratory Results 04/08/18 07:20 04/08/18 07:20 04/08/18 04/09/18 04/10/18 05:59 05:59 05:59 Intake Total 1918.4 5244 Output Total 1705 1950 Balance 213.4 3294 PT 16.7 SEC (12.0-15.0) H 04/08/18 07:20 INR 1.33 (0.83-1.16) H 04/08/18 07:20 - Time Spent With Patient Time Spent With Patient: 35 min of time spent with patient, over 1/2 involved with coordination of care or counseling. Case discussed with nursing Physical Exam - Physical Exam General Appearance: alert, no apparent distress EENT: PERRL/EOMI Neck: non-tender, full range of motion, supple, normal inspection Respiratory: chest non-tender, lungs clear, normal breath sounds Cardiac/Chest: normal peripheral pulses, regular rate, rhythm, systolic murmur Peripheral Pulses: 2+: carotid (R), carotid (L), femoral (R), femoral (L), dorsalis-pedis (R), dorsalis-pedis (L) Abdomen: normal bowel sounds, non-tender, soft Male Genitalia: deferred Rectal: deferred Skin: other (Bruising left groin) Extremities: normal range of motion, non-tender, normal inspection, normal capillary refill Neuro/Psych: no motor/sensory deficits, alert, normal mood/affect, oriented x 3 ICD10 Worksheet Patient Problems: Problems Problem Status Onset Vascular insufficiency of extremity Acute Peripheral vascular disease Acute
[2018-04-09] MEDS ORDERED: LIDOCAINE 1% 300 MG/30 ML SDV ONE (09:18)
[2018-04-09] MEDS: ATORVASTATIN CALCIUM 40 MG TAB PO SCH (09:50)
[2018-04-09] MEDS: amLODIPine BESYLATE 5 MG TAB PO SCH (09:50)
[2018-04-09] MEDS: MULTIVITAMINS 1 EACH TAB PO SCH (09:50)
[2018-04-09] MEDS: ASPIRIN 325 MG TAB PO SCH (09:50)
--- NOTE | 2018-04-09 10:40 | SOAPPROG ---
ANTONI Progress Note Assessment/Plan: Assessment: 72 Y M with PAD, recent bilateral fem pop bypass surgeries, occluded R fem pop graft and possible popliteal a. dissection. s/p catheter directed thrombolysis and angioplasty. Heparin stopped yesterday. S: Pain in right medial thigh incision. No other complaints O: ALert Afebrile No increased WOB RLE: pedal pulses palpable, foot warm, increased tenderness near medial thigh incision, slight erythema and swelling as well. Plan: U/S guided hematoma aspiration. Pt will need Eliquis to keep graft patent, but will hold off until after aspiration. Pt can be off bedrest now. 04/09/18 10:36 Objective: Vital Signs Temp Pulse Resp BP Pulse Ox 37.1 C 67 25 H 131/62 H 91 L 04/09/18 07:52 04/09/18 10:00 04/09/18 10:00 04/09/18 10:00 04/09/18 10:00 Laboratory Results 04/08/18 07:20 04/08/18 07:20 04/08/18 04/09/18 04/10/18 05:59 05:59 05:59 Intake Total 1918.4 5244 Output Total 1705 1950 Balance 213.4 3294 PT 16.7 SEC (12.0-15.0) H 04/08/18 07:20 INR 1.33 (0.83-1.16) H 04/08/18 07:20 ICD10 Worksheet Patient Problems: Problems Problem Status Onset Vascular insufficiency of extremity Acute Peripheral vascular disease Acute
[2018-04-09] MEDS ORDERED: MAGNESIUM HYDROXIDE 30 ML UDCUP PO PRN (17:30)
[2018-04-09] MEDS ORDERED: BISACODYL 10 MG SUPP PR PRN (17:30)
[2018-04-09] MEDS ORDERED: POLYETHYLENE GLYCOL 3350 17 GM PKT PO PRN (17:30)
[2018-04-09] MEDS ORDERED: LACTULOSE 20 GM/30 ML UDCUP PO PRN (17:30)
[2018-04-09] MEDS ORDERED: DOCUSATE SODIUM 100 MG CAP PO ONE (17:45)
[2018-04-09] MEDS: SENNOSIDES/DOCUSATE SODIUM TAB PO SCH (22:04)
[2018-04-09] MEDS: LORazepam 1 MG TAB PO PRN (22:04)
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
--- NOTE | 2018-04-10 08:11 | SOAPPROG ---
SOAP Progress Note Assessment/Plan: Assessment: 72 Y M with PAD, recent bilateral fem pop bypass surgeries, occluded R fem pop graft and possible popliteal a. dissection. s/p catheter directed thrombolysis and angioplasty. Heparin stopped 2 days ago Now s/p needle aspiration right medial thigh hematoma. S: Pain in right medial thigh incision. No other complaints O: ALert Afebrile No increased WOB RLE: pedal pulses palpable, foot warm, increased tenderness and swelling near medial thigh incision, slight erythema as well. Plan: Repeat U/S to evaluate for new hematoma. Will need to start eliquis soon , but will wait until after U/S. Dispo home soon. 04/10/18 08:10 Objective: Vital Signs Temp Pulse Resp BP Pulse Ox 36.0 C 67 18 137/66 H 98 04/10/18 04:00 04/10/18 04:00 04/10/18 04:00 04/10/18 04:00 04/10/18 04:00 Microbiology 04/09/18 11:50 Gram Stain - Final Other - Syringe Laboratory Results 04/08/18 07:20 04/08/18 07:20 04/09/18 04/10/18 04/11/18 05:59 05:59 05:59 Intake Total 5244 2315 Output Total 1950 1325 Balance 3294 990 PT 16.7 SEC (12.0-15.0) H 04/08/18 07:20 INR 1.33 (0.83-1.16) H 04/08/18 07:20 ICD10 Worksheet Patient Problems: Problems Problem Status Onset Vascular insufficiency of extremity Acute Peripheral vascular disease Acute
[2018-04-10] MEDS ORDERED: APIXABAN 5 MG TAB PO SCH (09:00)
--- NOTE | 2018-04-10 09:22 | POSTOPPROG ---
Post Op Note Date of Operation: 04/10/18 Surgeon: Alexander Jeong Anesthesiologist: rosa maria Anesthesia: GET(General Endotracheal) Pre-op Diagnosis: appendiceal polyp Post-op Diagnosis: same Indication: serrated polyp Procedure: lap appe with partial cecectomy Findings: small polyp at appendiceal lumen Inf/Abcess present in the surg proc area at time of surgery?: No Depth: Organ Space EBL: Minimal Complications: none Specimen(s): appendix and cecum
[2018-04-10] MEDS: ceFAZolin 2 GM/DEXTROSE 100 ML IV SCH ×3 (10:11→23:04)
[2018-04-10] MEDS: SENNOSIDES/DOCUSATE SODIUM TAB PO SCH ×2 (10:23→21:19)
[2018-04-10] MEDS: MULTIVITAMINS 1 EACH TAB PO SCH (10:23)
[2018-04-10] MEDS: ASPIRIN 325 MG TAB PO SCH (10:23)
[2018-04-10] MEDS: amLODIPine BESYLATE 5 MG TAB PO SCH (10:23)
[2018-04-10] MEDS: ATORVASTATIN CALCIUM 40 MG TAB PO SCH (10:23)
--- NOTE | 2018-04-10 10:49 | ASMTCMCOM ---
CM Note CM Note Notes: 04/10/2018 Case Management Note Met w/pt to discuss d/c needs. Pt is , able to drive and has a strong support network with friends and family. PT has cleared pt to return home with no supports. Pt primary MD is his oncologist Nan Schaeffer. Case Management d/c poc: independent with follow up as directed. Case Management available if needs change. Date Signed: 04/10/2018 10:49 AM Electronically Signed By:Polly Hoffman RN
[2018-04-10] MEDS: APIXABAN 5 MG TAB PO SCH (21:18)
[2018-04-11] MEDS: MULTIVITAMINS 1 EACH TAB PO SCH (08:01)
[2018-04-11] MEDS: ATORVASTATIN CALCIUM 40 MG TAB PO SCH (08:02)
[2018-04-11] MEDS: amLODIPine BESYLATE 5 MG TAB PO SCH (08:02)
[2018-04-11] MEDS: ASPIRIN 325 MG TAB PO SCH (08:02)
[2018-04-11] MEDS: APIXABAN 5 MG TAB PO SCH (08:02)
[2018-04-11] MEDS: ceFAZolin 2 GM/DEXTROSE 100 ML IV SCH (08:05)
[2018-04-11] MEDS: SENNOSIDES/DOCUSATE SODIUM TAB PO SCH (08:06)
[2018-04-11 11:30] VITALS: BP 116/58
--- NOTE | 2018-04-11 12:21 | ASDISCHSUM ---
Discharge Information Plan Status:Home with No Needs Medically Cleared to Leave:04/11/2018 Discharge Date:04/11/2018 CM D/C Disposition:Home, Routine, Self-Care ADT D/C Disposition:Home, Routine, Self-Care Projected Discharge Date:04/11/2018 Transportation at D/C:Family Discharge Delay Reason: Follow-Up Date:04/11/2018 Discharge Slot: Final Diagnosis: Placement Information Patient Contact Information Contact Name:IRLANDA Relationship: Address:[address] City:[place] Alternate Phone: [facility]/Zip Code:[place] [address] Email: Financial Information Financial Class:Medicare Primary Plan Desc:MEDICARE INPATIENT Primary Plan Number:[id number] Secondary Plan Desc:YASH/KSENIA SUPPLEMENT Secondary Plan Number:[id number] Assessment Information LACE LACE Acuity / Level of Answers: Yes Care: Did the patient have an inpatient admission? Comorbidities - select Answers: Any tumor (including all that apply lymphoma or leukemia) Coronary Artery Disease Opioid dependence / Chronic pain Peripheral vascular disease Other Notes: HLD; HTN # of Emergency department Answers: 1-2 visits in the last 6 months Score: 14 Date Signed: 04/11/2018 12:18 PM Electronically Signed By:Polly Hoffman RN [facility] Initial CM Assessment Living Arrangements What is your living Answers: With Spouse arrangement? Who do you live with? Type Of Residence What kind of residence do Answers: House you live in? Discharge Plan Comments Coordination Status Comments Notes: Patient is a 72yo male who arrives [facility]EM[facility] from [facility] in [place] with concern for an ischemic right leg. Patient had a right femoral artery gore-chelsey graft and popliteal endarerectomy performed by Dr. Jeong on February for right leg claudication. Patient has been admitted for fem-pop bypass with clotting. No therapies have been ordered at this time. D/C plan TBD. CM will follow. Date Signed: 04/07/2018 04:31 PM Electronically Signed By:Joleen Quispe LCSW [facility] CM Progress Note CM Note CM Note Notes: 04/10/2018 Case Management Note Met w/pt to discuss d/c needs. Pt is , able to drive and has a strong support network with friends and family. PT has cleared pt to return home with no supports. Pt primary MD is his oncologist Nan Schaeffer. Case Management d/c poc: independent with follow up as directed. Case Management available if needs change. Date Signed: 04/10/2018 10:49 AM Electronically Signed By:Polly Hoffman RN Case Management Discharge Plan Note Case Management Discharge Discharge Order Complete? Answers: Yes Patient to Obtain Answers: Independently Medications Transportation Arranged Answers: Family/Friends Discharge Comments Notes: 04/11/2018 Case Management Note Pt to discharge independent with follow up as directed. There are no case management d/c needs identified. Date Signed: 04/11/2018 12:19 PM Electronically Signed By:Polly Hoffman RN Intervention Information Intervention Type:*Incorrect Registration Date of Service:04/07/2018 09:57 AM Patient Type:Observation Staff Member:Kristin Vogel Hours: Discipline: Severity: Comment: Intervention Type:*IM-Signed Date of Service:04/10/2018 03:34 PM Patient Type:Inpatient Staff Member:Sveta Owens Hours: Discipline: Severity: Comment:
--- NOTE | 2018-04-16 14:07 | POSTANESTH ---
Post Anesthetic Evaluation Cardiovascular Status: Normal, Stable, Similar to Pre-Op Cond Respiratory Status: Normal, Stable, Similar to Pre-op Cond. Level of Consciousness/Mental Status: Can Participate in Eval, Alert and Oriented Pain Control: Adequate, Prn Tx Ordered Nausea/Vomiting Control: Adequate, Prn Tx Ordered Complications Possibly Related to Anesthesia: None Noted
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
== END 2018-04-11 14:00 | disposition home or self-care (01) | DRG 252 ==
LOC: EDUNIT# → OBSVTOIN 18:56 → F2N 19:35 → F2W 04-09 23:22
PROVIDERS: ADMIT Surgery; ATTEND Surgery
PROC: 3E05317 Introduction of Other Thrombolytic into Peripheral Artery, Percutaneous Approach (ICD-10-PCS; 2018-04-06)
PROC: 047M3Z1 Dilation of Right Popliteal Artery using Drug-Coated Balloon, Percutaneous Approach (ICD-10-PCS; principal; 2018-04-08)
PROC: 0J9M3ZZ Drainage of Left Upper Leg Subcutaneous Tissue and Fascia, Percutaneous Approach (ICD-10-PCS; 2018-04-09)
DX: T82.868A Thrombosis due to vascular prosthetic devices, implants and grafts, initial encounter (principal); I77.77 Dissection of artery of lower extremity; L76.32 Postprocedural hematoma of skin and subcutaneous tissue following other procedure; I73.9 Peripheral vascular disease, unspecified; I70.1 Atherosclerosis of renal artery; E78.5 Hyperlipidemia, unspecified; I25.10 Atherosclerotic heart disease of native coronary artery without angina pectoris; I27.20 Pulmonary hypertension, unspecified; Z85.6 Personal history of leukemia
CPT/HCPCS: 85520-90; 96365; 96366; 97116-GP; 97161-GP; C1725; C1757; C1760; C1769; C1892; G8978-GP-CI; G8979-GP-CI; G8980-GP-CI; J0690; J1170; J1644; J2250; J2270; J2310; J2997; J3010; Q9967

== ENCOUNTER 2018-06-02 10:26 | Inpatient (IN) | payer OTHER, MEDICARE ==
--- NOTE | 2018-06-02 10:40 | EDPHY ---
H & P Time Seen by Provider: 06/02/18 10:38 HPI/ROS: Chief complaint. Shortness of breath HPI. Patient is 72-year-old male presents emergency department with shortness of breath. He tells me his oxygen saturations at home have been in the low 80s. He has had a recent URI. He has had 2-3 days of shortness of breath. He fells like he could have near syncope. He has a history of pneumonia after URI. He denies chest pain no noted fast heart rate this morning. No abdominal pain or vomiting or diarrhea. Fever earlier in the course but not for the last several days. Continuing productive cough. No unusual leg pain or swelling. He is on Eliquis. Patient's tells me that he was raking leaves in the [place] yesterday and had to sit down to catch his breath as he was so short of breath and felt like he was going to pass out. ROS 10 systems were reviewed and negative with the exception of the elements mentioned in the history of present illness Past Medical/Surgical History: Ischemic leg in March of 2018 for an occluded femoral bypass. Previous femoral bypass. Dyslipidemia, DVT, arterial occlusion, peripheral vascular disease, hypertension, leukemia Social History: , nonsmoker, no alcohol Smoking Status: Never smoked Physical Exam: General Appearance: Alert well-developed male mild distress. Vital signs are stable Eyes: Pupils equal and round no pallor or injection. ENT, Mouth: Mucous membranes are moist. Respiratory: No retractions but inspiratory expiratory rhonchi Cardiovascular: Regular rate and rhythm. Gastrointestinal: Abdomen is soft and nontender, no masses, bowel sounds normal. Neurological: Awake and alert, sensory and motor exams grossly normal. Skin: Warm and dry, no rashes. Musculoskeletal: Neck is supple nontender. Extremities symmetrical, full range of motion. Good circulation with good capillary refill Psychiatric: Patient is oriented X 3, there is no agitation. Constitutional: Initial Vital Signs Temperature (C) 36.6 C 06/02/18 10:37 Heart Rate 74 06/02/18 10:37 Respiratory Rate 18 06/02/18 10:37 Blood Pressure 150/69 H 06/02/18 10:37 O2 Sat (%) 95 06/02/18 10:37 O2 Delivery Mode Room Air Allergies/Adverse Reactions: adhesive tape Allergy (Verified 06/02/18 10:37) BLISTERS latex Allergy (Verified 06/02/18 10:37) monosodium glutamate Allergy (Verified 06/02/18 10:37) ASTHMA Home Medications: Medication Instructions Recorded Bosutinib [Bosulif] 500 mg PO DAILY 11/17/17 Multivitamins [Multivitamin (*)] 1 each PO DAILY 11/17/17 amLODIPine BESYLATE [Norvasc 5 mg 5 mg PO DAILY 11/17/17 (*)] Herbals/Supplements -Info Only 1 ea PO DAILY 12/16/17 Aspirin [Aspirin 325 mg (*)] 325 mg PO DAILY 04/06/18 Atorvastatin Calcium [Lipitor 40 40 mg PO DAILY 04/06/18 mg (*)] Ibuprofen [Motrin (*)] 600 - 1,200 mg PO Q8HRS PRN 04/06/18 Apixaban [Eliquis] 5 mg PO BID tab 04/10/18 oxyCODONE HCL/ACETAMINOPHEN 1 each PO Q6HRS #20 tablet 04/10/18 [Percocet 5-325 mg Tablet] Apixaban [Eliquis] 5 mg PO BID #30 tab 04/11/18 Medical Decision Making - Diagnostics EKG Interpretation: EKG interpreted by me shows normal sinus rhythm with normal interval and axis. QRS is normal there is no significant ST elevation or depression. No arrhythmia. The rate is 70 Imaging Results: Imaging Impressions Chest X-Ray 06/02/18 10:39 Impression: Viral pneumonitis versus mild interstitial edema superimposed on chronic bibasilar scarring. Procedures: IV normal saline. Dannielle urrutia Patient's blood cultures and lactate obtained in the emergency department. He is given 1 g Rocephin IV. ED Course/Re-evaluation: Re-evaluation at 12:25 p.m. Patient is stable. Patient and I discussed imaging and lab findings. We discussed treatment plan including recommendation for admission. He expresses understanding and agreement I consulted and discussed case Dr. Mackenzie Stern, hospitalist, who agrees to the admission Differential Diagnosis: Considered pneumonia. He has chronic interstitial scarring. This seems to be quite a bit worse. I have considered acute coronary syndrome as well as pneumonia and CHF. Patient has significant hypoxia with exertion as he was raking leaves in the [place] and needed to sit down. - Data Points Laboratory Results: Laboratory Results 06/02/18 10:30 06/02/18 10:30 06/02/18 06/02/18 06/02/18 11:12 10:30 10:30 WBC 9.06 10^3/uL 10^3/uL (3.80-9.50) RBC 3.73 10^6/uL L 10^6/uL (4.40-6.38) Hgb 8.8 g/dL L g/dL (13.7-17.5) Hct 28.6 % L % (40.0-51.0) MCV 76.7 fL L fL (81.5-99.8) MCH 23.6 pg L pg (27.9-34.1) MCHC 30.8 g/dL L g/dL (32.4-36.7) RDW 16.7 % H % (11.5-15.2) Plt Count 457 10^3/uL H 10^3/uL (150-400) MPV 8.8 fL fL (8.7-11.7) Neut % (Auto) 56.5 % % (39.3-74.2) Lymph % (Auto) 20.5 % % (15.0-45.0) Evangeline % (Auto) 15.9 % H % (4.5-13.0) Eos % (Auto) 5.7 % % (0.6-7.6) Baso % (Auto) 1.0 % % (0.3-1.7) Nucleat RBC Rel Count 0.0 % % (0.0-0.2) Absolute Neuts (auto) 5.11 10^3/uL 10^3/uL (1.70-6.50) Absolute Lymphs (auto) 1.86 10^3/uL 10^3/uL (1.00-3.00) Absolute Monos (auto) 1.44 10^3/uL H 10^3/uL (0.30-0.80) Absolute Eos (auto) 0.52 10^3/uL H 10^3/uL (0.03-0.40) Absolute Basos (auto) 0.09 10^3/uL 10^3/uL (0.02-0.10) Absolute Nucleated RBC 0.00 10^3/uL 10^3/uL (0-0.01) Immature Gran % 0.4 % % (0.0-1.1) Immature Gran # 0.04 10^3/uL 10^3/uL (0.00-0.10) Sodium 134 mEq/L L mEq/L (135-145) Potassium 4.8 mEq/L mEq/L (3.3-5.0) Chloride 101 mEq/L mEq/L (97-110) Carbon Dioxide 23 mEq/l mEq/l (22-31) Anion Gap 10 mEq/L mEq/L (6-14) BUN 17 mg/dL mg/dL (7-23) Creatinine 1.3 mg/dL mg/dL (0.7-1.3) Estimated GFR 54 Glucose 113 mg/dL H mg/dL (70-100) Calcium 9.0 mg/dL mg/dL (8.5-10.4) POC Troponin I 0.00 ng/mL ng/mL (0.00-0.08) NT-Pro-B Natriuret Pep 328 pg/mL H pg/mL (0-125) Medications Given: Discontinued Medications Albuterol/Ipratropium (Duoneb) 3 ml IH EDNOW ONE Stop: 06/02/18 10:49 Last Admin: 06/02/18 11:03 Dose: 3 ml Sodium Chloride (Ns) 1,000 mls @ 0 mls/hr IV ONCE ONE; Wide Open PRN Reason: Protocol Stop: 06/02/18 10:49 Last Admin: 06/02/18 11:04 Dose: 1,000 mls Point of Care Test Results: Chemistry 06/02/18 11:12 POC Troponin I 0.00 ng/mL ng/mL (0.00-0.08) Departure - Departure Disposition: [facility] Inpatient Acute Clinical Impression: Hypoxia Pneumonia Qualifiers: Pneumonia type: due to unspecified organism Laterality: right Lung location: lower lobe of lung Qualified Code(s): J18.1 - Lobar pneumonia, unspecified organism Condition: Fair Referrals: NONE *PRIMARY CARE P,. [Primary Care Provider] - As per Instructions
[2018-06-02 10:48] LABS: PLATELET COUNT 457 10^3/uL (150-400)
[2018-06-02] MEDS ORDERED: NS 1,000 ML IV ONE (10:48)
[2018-06-02] MEDS ORDERED: IPRATROPIUM/ALBUTEROL 3 ML DEYVIAL IH ONE (10:48)
[2018-06-02] MEDS ORDERED: IPRATROPIUM/ALBUTEROL 3 ML DEYVIAL ONE (11:07)
[2018-06-02] MEDS ORDERED: ACETAMINOPHEN 325 MG TAB PO PRN (13:24)
[2018-06-02] MEDS ORDERED: ONDANSETRON 4 MG/2 ML VIAL IVP PRN (13:24)
[2018-06-02] MEDS ORDERED: ONDANSETRON DISINTEGRATING 4 MG TAB PO PRN (13:24)
--- NOTE | 2018-06-02 14:02 | CPEKG ---
Test Reason : OPEN Blood Pressure : / mmHG Vent. Rate : 070 BPM Atrial Rate : 070 BPM P-R Int : 172 ms QRS Dur : 095 ms QT Int : 402 ms P-R-T Axes : 074 071 026 degrees QTc Int : 434 ms Sinus rhythm Confirmed by Devon Landa ([id number]) on 06/02/2018 2:01:53 PM Referred By: Confirmed By:Devon Landa
--- NOTE | 2018-06-02 14:15 | PDGENHP ---
History and Physical - Chief Complaint Shortness of breath - History of Present Illness 72 y/o male presents d/t feeling shortness of breath, to the point where he felt he was going to pass out. He did not pass out. He felt his heart pounding hard but no chest pains. He is getting over a cold that started a week ago. He feels like his cold symptoms are over with but continues to feel short of breath and has a productive cough. He produces yellow thick phlegm in the morning and it progresses to clear thick phlegm later in the day. Occasionally there is blood tinged mucus when he blows his nose. One month prior, he underwent a bilateral femoral artery bypass with no complications. Denies N/V, chills, vision changes, chest pains. He is being admitted for further diagnostic work-up. History Information - Allergies/Home Medication List Allergies/Adverse Reactions: adhesive tape Allergy (Verified 06/02/18 10:37) BLISTERS latex Allergy (Verified 06/02/18 10:37) monosodium glutamate Allergy (Verified 06/02/18 10:37) ASTHMA Home Medications: Bosutinib [Bosulif] 500 mg PO DAILY 11/17/17 [Last Taken 06/01/18] Multivitamins [Multivitamin (*)] 1 each PO DAILY 11/17/17 [Last Taken 06/01/18] amLODIPine BESYLATE [Norvasc 5 mg (*)] 5 mg PO DAILY 11/17/17 [Last Taken ] Herbals/Supplements -Info Only 1 ea PO DAILY 12/16/17 [Last Taken 02/20/18] Atorvastatin Calcium [Lipitor 40 mg (*)] 40 mg PO DAILY 04/06/18 [Last Taken ] Aspirin [Aspirin 81mg (*)] 81 mg PO DAILY 06/02/18 [Last Taken 06/01/18] I have personally reviewed and updated: family history, medical history, social history, surgical history - Past Medical History coronary artery disease, cancer, DVT, hypertension, hyperlipidemia, peripheral artery disease Additional medical history: Leukemia - diagnosed 18 years ago. - Surgical History Reports: vascular surgery - Family History Positive for: non-pertinent - Social History Smoking Status: Never smoked Alcohol Use: Occasionally Drug Use: None Additional social history: Lives at home with his Review of Systems Review of Systems: ROS: 10pt was reviewed & negative except for what was stated in HPI & below Constitutional: Reports: recent illness EENMT: Reports: nose congestion Cardiac: Reports: other (Heart pounding) Respiratory: Reports: cough, shortness of breath Gastrointestinal: Reports: no symptoms Genitourinary: Reports: no symptoms Muscolosketal: Reports: no symptoms Skin: Reports: no symptoms Neurological: Reports: headache Hematologic/Lymphatic: Reports: no symptoms Immunologic/Allergy: Reports: other (See list above) Physical Exam Physical Exam: Lab data and imaging reviewed. Temp Pulse Resp BP Pulse Ox 36.6 C 73 16 142/62 H 95 06/02/18 10:37 06/02/18 13:08 06/02/18 13:08 06/02/18 13:08 06/02/18 13:08 Constitutional: no apparent distress Eyes: PERRL, anicteric sclera, EOMI Ears, Nose, Mouth, Throat: moist mucous membranes, hearing normal, ears appear normal, no oral mucosal ulcers Cardiovascular: regular rate and rhythym, no murmur, rub, or gallop, No edema Peripheral Pulses: 1+: dorsalis-pedis (R), dorsalis-pedis (L) Respiratory: reduced air movement (Dimished bilateral lung bases) Gastrointestinal: normoactive bowel sounds, soft, non-tender abdomen, no palpable masses Genitourinary: no bladder fullness, no bladder tenderness Skin: warm, normal color, no rashes or abrasions, no fluctuance, no induration, No mottled Musculoskeletal: full muscle strength, no muscle tenderness, normal joint ROM, no joint effusions Neurologic: AAOx3, sensation intact bilaterally, CN II-XII Intact Psychiatric: interacting appropriately, not anxious, not encephalopathic, thought process linear Lymph, Heme, Immunologic: no cervical LAD, no supraclavicular LAD Lab Data & Imaging Review 06/02/18 10:30 06/02/18 10:30 WBC 9.06 10^3/uL (3.80-9.50) 06/02/18 10:30 RBC 3.73 10^6/uL (4.40-6.38) L 06/02/18 10:30 Hgb 8.8 g/dL (13.7-17.5) L 06/02/18 10:30 Hct 28.6 % (40.0-51.0) L 06/02/18 10:30 MCV 76.7 fL (81.5-99.8) L 06/02/18 10:30 MCH 23.6 pg (27.9-34.1) L 06/02/18 10:30 MCHC 30.8 g/dL (32.4-36.7) L 06/02/18 10:30 RDW 16.7 % (11.5-15.2) H 06/02/18 10:30 Plt Count 457 10^3/uL (150-400) H 06/02/18 10:30 MPV 8.8 fL (8.7-11.7) 06/02/18 10:30 Neut % (Auto) 56.5 % (39.3-74.2) 06/02/18 10:30 Lymph % (Auto) 20.5 % (15.0-45.0) 06/02/18 10:30 [place] % (Auto) 15.9 % (4.5-13.0) H 06/02/18 10:30 Eos % (Auto) 5.7 % (0.6-7.6) 06/02/18 10:30 Baso % (Auto) 1.0 % (0.3-1.7) 06/02/18 10:30 Nucleat RBC Rel Count 0.0 % (0.0-0.2) 06/02/18 10:30 Absolute Neuts (auto) 5.11 10^3/uL (1.70-6.50) 06/02/18 10:30 Absolute Lymphs (auto) 1.86 10^3/uL (1.00-3.00) 06/02/18 10:30 Absolute Monos (auto) 1.44 10^3/uL (0.30-0.80) H 06/02/18 10:30 Absolute Eos (auto) 0.52 10^3/uL (0.03-0.40) H 06/02/18 10:30 Absolute Basos (auto) 0.09 10^3/uL (0.02-0.10) 06/02/18 10:30 Absolute Nucleated RBC 0.00 10^3/uL (0-0.01) 06/02/18 10:30 Immature Gran % 0.4 % (0.0-1.1) 06/02/18 10:30 Immature Gran # 0.04 10^3/uL (0.00-0.10) 06/02/18 10:30 VBG Lactic Acid 1.1 mmol/L (0.7-2.1) 06/02/18 12:38 Sodium 134 mEq/L (135-145) L 06/02/18 10:30 Potassium 4.8 mEq/L (3.3-5.0) 06/02/18 10:30 Chloride 101 mEq/L (97-110) 06/02/18 10:30 Carbon Dioxide 23 mEq/l (22-31) 06/02/18 10:30 Anion Gap 10 mEq/L (6-14) 06/02/18 10:30 BUN 17 mg/dL (7-23) 06/02/18 10:30 Creatinine 1.3 mg/dL (0.7-1.3) 06/02/18 10:30 Estimated GFR 54 06/02/18 10:30 Glucose 113 mg/dL (70-100) H 06/02/18 10:30 Calcium 9.0 mg/dL (8.5-10.4) 06/02/18 10:30 POC Troponin I 0.00 ng/mL (0.00-0.08) 06/02/18 11:12 NT-Pro-B Natriuret Pep 328 pg/mL (0-125) H 06/02/18 10:30 Assessment & Plan Assessment: 72 y/o male with history including but not limited to leukemia, CAD and PVD presents with hypoxia and suspected pneumonia Plan: #Shortness of breath/Hypoxia: CXR demonstrates scarring of bilateral lung bases secondary to Sprycel medication. He recently got over a cold but continues to have symptoms with a productive cough and SOB. -Consult with still operator helper; Dr. Phi Self aware; Will appreciate consult recommendation as far as pulmonary hygiene -Blood cultures pending -Orthostatic BP x 1 -Check Respiratory PCR Panel -Continuous pulse ox -Check procalcitonin -Ceftriaxone Q24 IV, Azithromycin Q24 IV #Anemia: H/H 8.8/28.6 Potential for cause of SOB and having the feeling of syncopal episode. Possible leukemia is influencing H/H. -Orthostatic BP x 1 -Check iron panel -Continuous pulse ox #CAD: VSS. EKG NSR. No chest pains. [place] heart pounding during extreme SOB. -Perform ECHO; BNP elevated -Cycle trops; first Trop negative 0.00 -Continue ASA and Atorvastatin #Hyponatremia: Na 134 -Possible dehydration considering recent illness. Creatinine 1.3. -Encouraged fluids including juices #PVD: recent bilateral bypass surgery -Continue Eliquis -SCDs #Leukemia: continue Bosutinib #HTN: continue Amlodipine Diet: Regular VTE ppx: SCDs, Eliquis Code: Full Dispo: Admit to obs
--- NOTE | 2018-06-02 16:12 | ECHO ---
[email or web address] [address] [address] Main: [phone] Fax: Transthoracic Echocardiogram Name: MO MCKINLEY MR#: [id number] Study Date: 06/02/2018 Study Time: 03:26 PM Date of : 1945 Age: 72 year(s) Height: 182.9 cm (72 in.) Weight: 67.13 kg (148 lb.) BSA: 1.87 m2 Gender: Male Examination: Echo Indication: Pneumonia Image Quality: Contrast: Requested by: Subha Humphreys BP: 140 mmHg/59 mmHg Heart Rate: Rhythm: Indication: Pneumonia Procedure Staff Director Medical Surgical: Vin Coffey RDCS Reading Physician: Stephanie Saravia MD Requesting Provider: Conclusions: Normal size left ventricle. No LV hypertrophy. Normal global systolic LV function. EF is 68 %. No regional wall motion abnormality. Normal diastolic LV function. Normal size right ventricle. Normal RV function. Mild mitral valve regurgitation is present. Mild tricuspid regurgitation is present. Right ventricular systolic pressure measures 51mmHg. The pulmonary artery pressure is moderately increased. No pericardial effusion. Compared to 05/16/2015 PA pressures are now slightly higher. Pleural effusion was present on previous study. Measurements: Chambers Valvular Assessment AV/MV Valvular Assessment TV/PV Normal Normal Normal Name Value Range Name Value Range Name Value Range Ao Harini (MM): 3.3 cm (2.2 cm-3.7 MV E Vmax: 1.19 m/s ( - ) TR Vmax: 3.38 mm/s ( - ) cm) MV A Vmax: 0.59 m/s ( - ) TR PGmax: 46 mmHg ( - ) IVSd (2D): 0.9 cm (0.6 cm-1.1 MV E/A: 2.02 ( - ) syst. PAP: 51 mmHg ( - ) cm) PV Vmax: 0.87 m/s (0.6 m/s-0.9 LVDd (2D): 4.5 cm (4.2 cm-5.9 m/s) cm) PV PGmax: 3 mmHg ( - ) LVDs (2D): 2.8 cm (2.1 cm-4 cm) LVPWd (2D): 1.0 cm (0.6 cm-1 cm) Patient: MO MCKINLEY Study Date: 06/02/2018 Page 1 of 2 03:26 PM LVEF (2D): 68 (>=54 %) Continued Measurements: Chambers Valvular Assessment AV/MV Valvular Assessment TV/PV Name Value Name Value Name Value LADs Lon.0 cm MV E' Septal: 0.11 m/s CVP (est.): 5 mmHg LA Area: 19.2 cm2 MV E/E' Septal: 10.90 LA Volume: 57 ml MV E/E' Lateral: 12.50 LA Volume Index: 30.5 ml/m2 Findings: Left Ventricle: Normal size left ventricle. No LV hypertrophy. Normal global systolic LV function. EF is 68 %. No regional wall motion abnormality. Normal diastolic LV function. Right Ventricle: Normal size right ventricle. Normal RV function. Left Atrium: The left atrium is normal in size. Right Atrium: The right atrium is normal in size. Mitral Valve: The mitral valve is normal in appearance and function. Mild mitral valve regurgitation is present. Aortic Valve: The aortic valve is tri-leaflet and functions normally. There is no aortic valve regurgitation. Tricuspid Valve: Mild tricuspid regurgitation is present. Right ventricular systolic pressure measures 51mmHg. The pulmonary artery pressure is moderately increased. Pulmonic Valve: The pulmonic valve is normal in appearance and function. There is no pulmonic regurgitation seen. Aorta: The aorta is normal. Pericardium: No pericardial effusion. (No Signature Object) Patient: MO MCKINLEY Study Date: 06/02/2018 Page 2 of 2 03:26 PM [id number]
--- NOTE | 2018-06-02 19:43 | HOSPPROG ---
Hospitalist Progress Note Assessment/Plan: Please see full h&p by Subha Humphreys CLASS C TRUCK DRIVER. I reviewed pt's history, labs and imaging. I personally saw and examined the patient. I agree with the plan as created by Petr and discussed the case with her. He had an abnormal CXR in 2017, though appearance is worse today with cough and SOB. Query old scarring from prior complicated and long-term pleural effusion. Also note h/o CML and associated treatment, ?pneumonitis related to this. Agree with CAP treatment, echo and pulmonology f/u. Objective: Vital Signs Temp Pulse Resp BP Pulse Ox 36.6 C 70 16 136/61 H 95 06/02/18 10:37 06/02/18 14:48 06/02/18 13:08 06/02/18 14:48 06/02/18 13:08 06/01/18 06/02/18 06/03/18 05:59 05:59 05:59 Intake Total 1100 Balance 1100 ICD10 Worksheet Patient Problems: Problems Problem Status Onset Hypoxia Acute Pneumonia Acute Peripheral vascular disease Acute Vascular insufficiency of extremity Acute
[2018-06-02] MEDS: APIXABAN 5 MG TAB PO SCH (20:02)
--- NOTE | 2018-06-02 20:03 | GCON ---
CHEST CONSULTATION REASON FOR CONSULTATION: Pneumonia. HISTORY OF PRESENT ILLNESS: The patient is a very pleasant 72-year-old white male with a past medica l history of CML, coronary artery disease, hypertension, hyperlipidemia, and DVT. He was seen by me in March of this year for a DVT, requiring EKOS. In discussion with the patient, he states over las t week or so he has noticed increasing breathlessness that has been associated with a cough productiv e of yellowish sputum. Today, he began feeling markedly more breathless and sought medical attention. He thought he was possibly going to pass out. He was brought to the emergency room and was subsequ ently admitted to the floor. Currently feels markedly improved, and he is no longer hypoxemic. REVIEW OF SYSTEMS: Ten-point review of systems is performed and negative, except for what is listed in the HPI. PAST MEDICAL HISTORY: Again significant for CML, coronary artery disease, DVT, hypertension, hyperli pidemia. PAST SURGICAL HISTORY: He has had vascular surgery. FAMILY HISTORY: Noncontributory. SOCIAL HISTORY: Lifelong never smoker. He missed infrequent alcohol use. 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 He is . Has lived in [place] all of his life. CURRENT MEDICATIONS: Include bosutinib, multivitamin, amlodipine, atorvastatin, and aspirin. PHYSICAL EXAM: VITAL SIGNS: Blood pressure is 136/64, pulse 71, respirations 16. He is afebrile. Oxygen saturation 95% on room air. GENERAL: He is a thin, elderly white male who is resting comfort ably, on no supplemental oxygen. HEENT: Eyes are PERRLA, EOMI. Throat shows no erythema or tonsilla r hypertrophy. NECK: Supple. There is no cervical adenopathy. HEART: Regular rate and rhythm, wi thout murmurs, rubs, or gallops. LUNGS: Diminished breath sounds and a few bibasilar crackles, righ t greater than left. ABDOMEN: Soft, nontender. Bowel sounds are present in all 4 quadrants. EXTRE MITIES: No clubbing, cyanosis, or edema. LABORATORY DATA: White count is 9.0, hemoglobin 8.8, hematocrit 28, platelet count 457. Sodium 134, potassium 4.8, chloride 101. CO2 is 23, BUN 17, creatinine is 1.3. Glucose is 113. Chest x-ray rev eals chronic pleural-parenchymal scarring on the right and left base, which have no change. There is some ground-glass attenuation. IMPRESSION: 1. Pneumonia. Query whether this is bacterial versus viral. 2. Scarring in the lungs, likely secondary to his history of pleural effusions. 3. Chronic myelogenous leukemia. 4. Coronary artery disease. 5. Hyperlipidemia. 6. Hypertension. RECOMMENDATIONS: 1. Agree with current antibiotic coverage. 2. Deep vein thrombosis and pulmonary embolus prophylaxis. 3. Stress ulcer prophylaxis. 4. Agree with echocardiogram. 5. Would not recommend further chest imaging at this time. However, he will require repeat chest x- ray in approximately 1 month. Thank you very much for allowing me to participate in the care of this interesting patient. Will fol low along with you. /[id number]/MODL
[2018-06-03] MEDS: AZITHROMYCIN IV 500 MG in NS 250 ML IV SCH (07:31)
[2018-06-03] MEDS: ASPIRIN 81 MG CHEWABLE TAB PO SCH (07:36)
[2018-06-03] MEDS: APIXABAN 5 MG TAB PO SCH ×2 (07:37→20:06)
[2018-06-03] MEDS: amLODIPine BESYLATE 5 MG TAB PO SCH (07:37)
[2018-06-03] MEDS: ATORVASTATIN CALCIUM 40 MG TAB PO SCH (07:37)
[2018-06-03] MEDS: BOSUTINIB 500 MG PO SCH (07:39)
--- NOTE | 2018-06-03 11:20 | ASMTCMCOM ---
CM Note CM Note Notes: 06/03/2018 Case Management Note Met w/pt to address discharge needs. Pt admitted for pneumonia. Pt January [phone] to transport pt home. Pt is well known to case management w/ prior independent discharges on 12/19/2017, 02/24/2018 and 04/11/2018. There are no therapy evals ordered at this time. Pt is ambulating without difficulty in room and halls. Pt reports he considers Dr. Schaeffer (oncologist) as his move coordinator. Additionally, pt is followed by Dr. Manrique at [facility]. Case Management d/c poc: home independent with follow up as directed. Case Management available if needs change. Date Signed: 06/03/2018 11:19 AM Electronically Signed By:Polly Hoffman RN
--- NOTE | 2018-06-03 14:25 | SOAPPROG ---
SOAP Progress Note Assessment/Plan: Assessment/plan: * Pneumonia-clinically improved -change to p.o. Antibiotics soon -repeat chest x-ray in 1 month * Chronic right lower lobe scarring * Positive blood culture-likely contaminant. * CML * Coronary artery disease * Hypertension * History of DVT Subjective: Sitting up in chair. Resting comfortably. Denies any breathlessness. There is no cough or production of sputum. Objective: Vital Signs Temp Pulse Resp BP Pulse Ox 37.0 C 64 16 129/61 H 96 06/03/18 08:00 06/03/18 08:00 06/03/18 08:00 06/03/18 08:00 06/03/18 08:00 Microbiology 06/02/18 21:32 Respiratory Panel (PCR) - Final Nasal, Sinus - Eswab No Organism Detected 06/02/18 06/03/18 06/04/18 05:59 05:59 05:59 Intake Total 1600 Output Total 500 400 Balance 1100 -400 Echocardiogram-good ejection fraction. Mild pulmonary hypertension. - Time Spent With Patient Time Spent With Patient: 25 min of time spent with patient, over 1/2 involved with coordination of care or counseling. Physical Exam - Physical Exam General Appearance: alert, no apparent distress EENT: PERRL/EOMI Neck: non-tender, full range of motion, supple Respiratory: crackles (Right base), No respiratory distress, No wheezing Cardiac/Chest: normal peripheral pulses, regular rate, rhythm, systolic murmur Peripheral Pulses: 2+: carotid (R), carotid (L), femoral (R), femoral (L), dorsalis-pedis (R), dorsalis-pedis (L) Abdomen: normal bowel sounds, non-tender, soft Male Genitalia: deferred Rectal: deferred Extremities: normal range of motion, non-tender, normal inspection, normal capillary refill Neuro/Psych: no motor/sensory deficits, alert, normal mood/affect, oriented x 3 ICD10 Worksheet Patient Problems: Problems Problem Status Onset Hypoxia Acute Pneumonia Acute Peripheral vascular disease Acute Vascular insufficiency of extremity Acute
--- NOTE | 2018-06-03 14:50 | HOSPPROG ---
Hospitalist Progress Note Assessment/Plan: CAP - has had abnormal CXR with RLL scarring for some time, now with presumed PNA. Query if prior scarring was related to h/o complicated pleural effusion versus pneumonitis from CML drug. -Cont Ceftriaxone/Azithro -outpt pulm f/u for repeat CXR in [address] at that time if abnormalities persist Positive blood culture - 1/4 bottles with coag neg staph and strep species not A , B or pneumococcal -suspect contaminant, await final ID Fe deficiency anemia - anemia is chronic, may be related to Bosutinib (CML drug) . He has h/o polyps and is due for c-scope -discussed outpt f/u for repeat c-scope -add oral iron CAD - stable, cont home meds PAD - recent arterial clot s/p thrombolysis -cont eliquis Hypertension - fairly well controlled -cont amlodipine CML - cont Bosutinib, outpt f/u Full code Dispo - cont inpt, await BCx ID, anticipate d/c tomorrow Subjective: Pt feels better, SOB is improved. He denies CP. Coughing up some sputum. No bleeding. Still weak. Objective: Vital Signs Temp Pulse Resp BP Pulse Ox 37.0 C 64 16 129/61 H 96 06/03/18 08:00 06/03/18 08:00 06/03/18 08:00 06/03/18 08:00 06/03/18 08:00 Microbiology 06/02/18 21:32 Respiratory Panel (PCR) - Final Nasal, Sinus - Eswab No Organism Detected 06/02/18 06/03/18 06/04/18 05:59 05:59 05:59 Intake Total 1600 Output Total 500 400 Balance 1100 -400 - Physical Exam Constitutional: no apparent distress Eyes: PERRL Ears, Nose, Mouth, Throat: moist mucous membranes Cardiovascular: regular rate and rhythym Respiratory: no respiratory distress, inspiratory crackles Gastrointestinal: normoactive bowel sounds, soft, non-tender abdomen Skin: warm Musculoskeletal: full muscle strength Neurologic: AAOx3 Psychiatric: interacting appropriately ICD10 Worksheet Patient Problems: Problems Problem Status Onset Hypoxia Acute Pneumonia Acute Peripheral vascular disease Acute Vascular insufficiency of extremity Acute
[2018-06-03] MEDS: FERROUS SULFATE 325 MG TAB PO SCH ×2 (15:47→20:06)
[2018-06-04 08:26] VITALS: BP 146/71
[2018-06-04] MEDS: ATORVASTATIN CALCIUM 40 MG TAB PO SCH (10:18)
[2018-06-04] MEDS: amLODIPine BESYLATE 5 MG TAB PO SCH (10:18)
[2018-06-04] MEDS: APIXABAN 5 MG TAB PO SCH (10:18)
[2018-06-04] MEDS: ASPIRIN 81 MG CHEWABLE TAB PO SCH (10:18)
[2018-06-04] MEDS: BOSUTINIB 500 MG PO SCH (10:19)
[2018-06-04] MEDS: FERROUS SULFATE 325 MG TAB PO SCH (10:19)
[2018-06-04] MEDS: AZITHROMYCIN IV 500 MG in NS 250 ML IV SCH (11:30)
[2018-06-04] MEDS ORDERED: SODIUM FERRIC GLUCONAT/SUCROSE 125 MG in NS 100 ML IV ONE (12:53)
--- NOTE | 2018-06-04 12:55 | HOSPPROG ---
Hospitalist Progress Note Assessment/Plan: CAP - has had abnormal CXR with RLL scarring for some time, now with presumed PNA. Query if prior scarring was related to h/o complicated pleural effusion versus pneumonitis from CML drug. -Cont Ceftriaxone/Azithro -outpt pulm f/u for repeat CXR in [address] at that time if abnormalities persist Positive blood culture - / bottles with coag neg staph and strep species not A , B or pneumococcal -suspect contaminant, await final ID will treat as contaminant explained need to return for fever Fe deficiency anemia - anemia is chronic, may be related to Bosutinib (CML drug) . He has h/o polyps and is due for c-scope -discussed outpt f/u for repeat c-scope IV iron now, follow up in onc clinic CAD - stable, cont home meds PAD - recent arterial clot s/p thrombolysis -cont eliquis Hypertension - fairly well controlled -cont amlodipine CML - cont Bosutinib, outpt f/u Full code Dispo home today > 30 minutes Subjective: anxious for dc Objective: Vital Signs Temp Pulse Resp BP Pulse Ox 36.8 C 66 16 146/71 H 90 L 06/04/18 08:00 06/04/18 08:00 06/04/18 08:00 06/04/18 10:18 06/04/18 08:00 Laboratory Results 06/04/18 05:29 06/03/18 06/04/18 06/05/18 05:59 05:59 05:59 Intake Total 500 Balance 500 - Physical Exam Constitutional: no apparent distress, appears nourished Eyes: PERRL, anicteric sclera Ears, Nose, Mouth, Throat: moist mucous membranes, hearing normal Cardiovascular: regular rate and rhythym, no murmur, rub, or gallop Respiratory: no respiratory distress, no rales or rhonchi Gastrointestinal: normoactive bowel sounds, soft, non-tender abdomen Genitourinary: no bladder fullness, No lang in urethra Skin: warm, normal color Musculoskeletal: full muscle strength, no muscle tenderness Neurologic: AAOx3, sensation intact bilaterally Psychiatric: interacting appropriately ICD10 Worksheet Patient Problems: Problems Problem Status Onset Hypoxia Acute Pneumonia Acute Peripheral vascular disease Acute Vascular insufficiency of extremity Acute
--- NOTE | 2018-06-05 13:21 | PDMN ---
Medical Necessity Medical necessity: Change to IP, as of 06/03/18, per & MCG M-282; los >2 mn for ongoing management of presumed community acquired pneumonia; awaiting cxs; requiring further monitoring & IV abx; hx CAD, PAD, DVT, leukemia
== END 2018-06-04 15:14 | disposition home or self-care (01) | DRG 194 ==
LOC: EDUNIT# → INTOOBSV 12:46 → F3E 13:29 → OBSVTOIN 06-03 15:15
PROVIDERS: ADMIT Hospitalist; ATTEND Hospitalist
DX: J18.9 Pneumonia, unspecified organism (principal); D50.9 Iron deficiency anemia, unspecified; E87.1 Hypo-osmolality and hyponatremia; I10 Essential (primary) hypertension; I25.10 Atherosclerotic heart disease of native coronary artery without angina pectoris; E78.5 Hyperlipidemia, unspecified; C92.10 Chronic myeloid leukemia, BCR/ABL-positive, not having achieved remission; Z86.718 Personal history of other venous thrombosis and embolism; Z23 Encounter for immunization
CPT/HCPCS: 84484-PO; 96365; G0008; G0378; J0456; J0696; J2916

== ENCOUNTER 2018-07-01 17:33 | Inpatient (IN) | payer OTHER, MEDICARE ==
--- NOTE | 2018-07-01 18:07 | CPEKG ---
Test Reason : OPEN Blood Pressure : / mmHG Vent. Rate : 081 BPM Atrial Rate : 082 BPM P-R Int : 154 ms QRS Dur : 082 ms QT Int : 323 ms P-R-T Axes : 070 077 029 degrees QTc Int : [address] elevation, consider anterolateral injury Confirmed by Joselo Linder ([id number]) on 07/01/2018 6:07:16 PM Referred By: Confirmed By:Joselo Linder
[2018-07-01] MEDS ORDERED: NS 500 ML IV ONE (18:19)
[2018-07-01] MEDS ORDERED: ASPIRIN 81 MG CHEWABLE TAB PO ONE (18:20)
--- NOTE | 2018-07-01 18:20 | EDPHY ---
HPI/HX/ROS/PE/MDM Narrative: CLINICAL IMPRESSION: Shortness of breath and chest pain x2 weeks ASSESSMENT/PLAN: 72-year-old male with past medical history of CML leukemia and peripheral arterial disease presents to the emergency department with 2 weeks of chest pain and shortness of breath. Patient is hypoxic, afebrile, alert and answering all questions appropriately. Initial EKG read by Dr. Linder with isolated ST elevation in lead 2 only. Initial troponin negative. Patient seen and examined by Dr. Linder and cardiac alert was called. Dr. Desouza with Cardiology saw and evaluated the patient and felt EKG findings were more consistent with repol. Patient has acute renal insufficiency with a creatinine of 2.4, BUN of 41. No reported history of GI bleeding, melena. He is anticoagulated on Eliquis. He receives routine iron transfusions but has not received blood transfusions. No abdominal pain. No significant anemia on labs today. Discussed with hospitalist for admission, stabilized in the ED prior to transfer to floor. DIFFERENTIAL DX: Chest pain including but not limited to myocardial ischemia, pulmonary embolus , chest wall pain, pleural inflammation and pulmonary infectious causes. ED COURSE: Initial and repeat EKGs reviewed Dr. Linder patient has a new ST elevation in lead 2 only compared to prior EKGs. Seen and examined by Dr. Linder, cardiac alert was called. ED attending spoke with Dr. Desouza who will see the patient in the ED. 7:30 p.m.: Dr. Desouza on examine the patient in the ED. Impression of EKG by cardiology is repol. Will schedule echo tomorrow. Questionable pulmonary edema. Chest x-ray read by Radiology as increased cardiac silhouette size with possible hypervascular changes. BNP added to labs. Case discussed with hospitalist who will accept admission to [facility]. CHIEF COMPLAINT: Chest pain and shortness of breath x2 weeks HPI: This is a 72-year-old male with past medical history of CML leukemia followed by Dr. Schaeffer presents to the emergency department 2 weeks of shortness of breath and substernal pleuritic chest discomfort. Patient was admitted to this hospital 5 weeks ago for pneumonia, treated with IV antibiotics and discharged on p. O. Antibiotics. He reports things were improving until 2 weeks ago when shortness of breath returned. He has been having increased trouble sleeping due to shortness of breath. He reports a home pulse oximeter reads in the 60s when he 1st awakens and never seems to go above low 80s. He reports"gurgling" in his chest as well as a new cough. He has chronic anemia and receives iron transfusions but has never received a blood transfusion. He does not know his baseline hemoglobin and hematocrit are. He reports no past cardiac history. He does have a past history of PAD, followed by [facility] and is compliant with Eliquis, amlodipine, and atorvastatin. He also takes 160 mg of aspirin twice daily. He is currently taking chemotherapy for CML. He reports no lower extremity swelling and has no history of DVT or PE. No reported fevers or chills. He has not been able to see his primary care since discharge from the hospital 5 weeks ago. He came to the hospital today because his shortness of breath was getting worse. PMH: CML leukemia, peripheral arterial disease Pertinent Past Surgical History: None reported Family History: None reported Social History: Nonsmoker REVIEW OF SYSTEMS: All other systems negative Constitutional: No fever, no chills, appetite change. Eyes: No discharge, vision change ENT: No sore throat, congestion, ear pain. Cardiovascular: no palpitations. Respiratory: No cough, + shortness of breath. Gastrointestinal: No abdominal pain, no vomiting, diarrhea. Musculoskeletal: No back pain, joint swelling, joint pain, myalgias. Skin: No rashes, color change. Neurological: No headache, dizziness, weakness. PHYSICAL EXAM: General Appearance: Alert, oriented, appropriate, cooperative, NAD, well hydrated, non-toxic appearing, VSS, hypoxic in the mid 80s on room air, pale, chronically ill-appearing. HEENT: TMs are clear bilaterally no perforation or FB, no injection, no evidence of serous or mucopurulent otitis. Oropharynx clear is no erythema or exudates, no tonsillar hypertrophy or asymmetry. Dentition without abnormality. Eyes: [PERRLA, no acute vision change, nystagmus, swelling, discharge, pain or photosensitivity. Conjunctiva pale Neck: Supple, nontender, no lymphadenopathy, no midline pain, FROM, no meningismus. Respiratory: There are no retractions, lungs are clear to auscultation. Cardiac: Regular rate and rhythm, no murmurs or gallops. Gastrointestinal: Abdomen is soft, nontender, bowel sounds normal, no masses/ hernia, no rigidity, guarding or focal peritoneal findings. Neurological: Alert and oriented x 3, CN 2-12 grossly intact, normal gait no ataxia, DTR's intact, normal sensation and strength Skin: Warm, dry, no rashes, no nodules on palpation. Musculoskeletal: Extremities are symmetrical, full range of motion, no tenderness, deformity, swelling, or erythema. Psychiatric: Patient is oriented X 3, there is no agitation. MEDICAL DECISION MAKING: Patient was seen independently. Secondary supervising physician at time of evaluation was Dr. Linder. Diagnosis: Chest pain and shortness of breath. New, requires workup Summary: See Assessment and Plan for summary of ED visit Clinical lab tests: ordered / reviewed. Independent visualization of images, tracing, or specimens: Yes. Decision to obtain medical records or history from someone other than the patient: Patient's Review / Summarize previous medical records: Reviewed past ED record Discussed patient with another provider: Dr. Linder Patient Progress: Stable at time of discharge to for. (Kit Mcneil) MDM: 6:40 p.m. I discussed the case with Dr. Jeronimo Desouza who will come to evaluate. We called a cardiac alert. 7:[address] Desouza is here evaluating the patient and reviewing EKGs. ( Joselo Linder) - Data Points Imaging Results: Imaging Impressions Chest X-Ray 07/01/18 18:19 Impression: 1. Interval enlargement of the cardiac silhouette with central pulmonary vascular prominence compatible with congestive heart failure or circulating hypervolemia. 2. Stable pleural/parenchymal disease in the lower lungs bilaterally. Laboratory Results: Laboratory Results 07/01/18 18:01 07/01/18 18:01 07/01/18 07/01/18 07/01/18 18:27 18:04 18:01 WBC RBC Hgb Hct MCV MCH MCHC RDW Plt Count MPV Neut % (Auto) Lymph % (Auto) Dickinson % (Auto) Eos % (Auto) Baso % (Auto) Nucleat RBC Rel Count Absolute Neuts (auto) Absolute Lymphs (auto) Absolute Monos (auto) Absolute Eos (auto) Absolute Basos (auto) Absolute Nucleated RBC Immature Gran % Immature Gran # RBC/WBC/PLT Morphology Platelet Estimate Polychromasia Hypochromasia Microcytic Cells Echinocytes Sodium 135 mEq/L mEq/L (135-145) Potassium 4.8 mEq/L mEq/L (3.3-5.0) Chloride 102 mEq/L mEq/L (97-110) Carbon Dioxide 22 mEq/l mEq/l (22-31) Anion Gap 11 mEq/L mEq/L (6-14) BUN 41 mg/dL H mg/dL (7-23) Creatinine 2.4 mg/dL H mg/dL (0.7-1.3) Estimated GFR 27 Glucose 132 mg/dL H mg/dL (70-100) Calcium 8.4 mg/dL L mg/dL (8.5-10.4) POC Troponin I 0.01 ng/mL ng/mL 0.01 ng/mL ng/mL (0.00-0.08) (0.00-0.08) 07/01/18 18:01 WBC 10.41 10^3/uL H 10^3/uL (3.80-9.50) RBC 3.99 10^6/uL L 10^6/uL (4.40-6.38) Hgb 10.2 g/dL L g/dL (13.7-17.5) Hct 33.4 % L % (40.0-51.0) MCV 83.7 fL fL (81.5-99.8) MCH 25.6 pg L pg (27.9-34.1) MCHC 30.5 g/dL L g/dL (32.4-36.7) RDW 25.7 % H % (11.5-15.2) Plt Count 294 10^3/uL 10^3/uL (150-400) MPV 9.7 fL fL (8.7-11.7) Neut % (Auto) 81.5 % H % (39.3-74.2) Lymph % (Auto) 2.2 % L % (15.0-45.0) Dickinson % (Auto) 14.3 % H % (4.5-13.0) Eos % (Auto) 1.3 % % (0.6-7.6) Baso % (Auto) 0.2 % L % (0.3-1.7) Nucleat RBC Rel Count 0.0 % % (0.0-0.2) Absolute Neuts (auto) 8.48 10^3/uL H 10^3/uL (1.70-6.50) Absolute Lymphs (auto) 0.23 10^3/uL L 10^3/uL (1.00-3.00) Absolute Monos (auto) 1.49 10^3/uL H 10^3/uL (0.30-0.80) Absolute Eos (auto) 0.14 10^3/uL 10^3/uL (0.03-0.40) Absolute Basos (auto) 0.02 10^3/uL 10^3/uL (0.02-0.10) Absolute Nucleated RBC 0.00 10^3/uL 10^3/uL (0-0.01) Immature Gran % 0.5 % % (0.0-1.1) Immature Gran # 0.05 10^3/uL 10^3/uL (0.00-0.10) RBC/WBC/PLT Morphology TNP Platelet Estimate ADEQUATE (ADEQ) Polychromasia 1+ H Hypochromasia 1+ H Microcytic Cells 2+ H Echinocytes 1+ H Sodium Potassium Chloride Carbon Dioxide Anion Gap BUN Creatinine Estimated GFR Glucose Calcium POC Troponin I Medications Given: Discontinued Medications Aspirin (Aspirin) 324 mg PO EDNOW ONE Stop: 07/01/18 18:21 Last Admin: 07/01/18 18:31 Dose: 324 mg Sodium Chloride (Ns) 500 mls @ 0 mls/hr IV EDNOW ONE; Wide Open PRN Reason: Protocol Stop: 07/01/18 18:20 Last Admin: 07/01/18 18:31 Dose: 500 mls Point of Care Test Results: Chemistry 07/01/18 07/01/18 18:27 18:04 POC Troponin I 0.01 ng/mL ng/mL 0.01 ng/mL ng/mL (0.00-0.08) (0.00-0.08) General Time Seen by Provider: 07/01/18 18:03 Initial Vital Signs: Initial Vital Signs Temperature (C) 37.2 C 07/01/18 17:44 Heart Rate 84 07/01/18 17:44 Respiratory Rate 22 H 07/01/18 17:44 Blood Pressure 154/72 H 07/01/18 17:44 O2 Sat (%) 85 L 07/01/18 17:44 O2 Delivery Mode Nasal Cannula O2 (L/minute) 2 Allergies/Adverse Reactions: adhesive tape Allergy (Verified 07/01/18 17:43) BLISTERS latex Allergy (Verified 07/01/18 17:43) monosodium glutamate Allergy (Verified 07/01/18 17:43) ASTHMA Home Medications: Medication Instructions Recorded Bosutinib [Bosulif] 500 mg PO DAILY@1200 11/17/17 Multivitamins [Multivitamin (*)] 1 each PO DAILY 11/17/17 amLODIPine BESYLATE [Norvasc 5 mg 5 mg PO DAILY 11/17/17 (*)] Atorvastatin Calcium [Lipitor 40 40 mg PO DAILY 04/06/18 mg (*)] Apixaban [Eliquis] 5 mg PO BID #30 tab 04/11/18 Albuterol [Proventil Inhaler HFA 1 puffs IH Q4H 07/01/18 (*)] Aspirin EC [Aspirin EC 81 mg (*)] 162 mg PO BID 07/01/18 Herbals/Supplements -Info Only 1 ea PO DAILY 07/01/18 Departure - Departure Disposition: [facility] Acute Clinical Impression: Shortness of breath, Substernal chest pain Condition: Fair
[2018-07-01 18:26] LABS: PLATELET COUNT 294 10^3/uL (150-400)
[2018-07-01] MEDS ORDERED: MIDAZOLAM 2 MG/2 ML VIAL ONE (19:09)
[2018-07-01] MEDS ORDERED: IOPAMIDOL (ISOVUE-370) 150 ML BTL IV ONE (19:09)
[2018-07-01] MEDS ORDERED: fentaNYL 100 MCG/2 ML INJ ONE (19:09)
[2018-07-01] MEDS ORDERED: LIDOCAINE 1% 300 MG/30 ML SDV ONE (19:09)
[2018-07-01] MEDS ORDERED: ACETAMINOPHEN 325 MG TAB PO PRN (22:28)
[2018-07-01] MEDS ORDERED: ALBUTEROL 3 ML DEYVIAL IH PRN (22:28)
[2018-07-01] MEDS ORDERED: ONDANSETRON DISINTEGRATING 4 MG TAB PO PRN (22:28)
[2018-07-01] MEDS ORDERED: NS 1,000 ML IV SCH (22:30)
--- NOTE | 2018-07-01 23:14 | GCON ---
CARDIOLOGY CONSULTATION DATE OF CONSULTATION: 07/01/2018 REFERRING PHYSICIAN: Joselo Linder MD REASON FOR CONSULTATION: Possible cardiac alert; patient seen in ER at 7 p.m. HISTORY: The patient is a 72-year-old male, who presents to the emergency room complaining of a 2-week history of progressively worsening shortness of breath and chest discomfort. He was hospitalized in May for a right lower lobe pneumonia. He has a complex medical history, which includes chronic myelogenous leukemia, iron deficiency anemia, mild coronary atherosclerosis, and peripheral arterial disease, which has been attributed to a medicine used to treat his CML. He reports that he has had increasing shortness of breath and dyspnea on exertion. He has a cough productive of significant amounts of clear sputum. He has had almost continuous central chest discomfort localized to the upper part of the substernal region. There is a pleuritic component to his symptoms with deep inspiration. In the emergency room, his vital signs were stable, and his initial troponin was negative. An ECG demonstrated normal sinus rhythm. He had approximately [address]-segment elevation in lead II and V6. The morphology of the ST-segment elevation was concave. Based on his chest discomfort and abnormal ECG, a cardiac alert was called. I spoke with the patient and his at length in the emergency room. He has not had any chest discomfort provoked or exacerbated by physical exertion but he is relatively sedentary. There is no positional component to his discomfort. He has not had any signs of increasing fluid retention. His chest x-ray was suggestive of pulmonary congestion. PAST MEDICAL HISTORY: He has a complex past medical history. Previously, he was hospitalized in late May for a right lower lobe pneumonia. At that time , he also demonstrated a significant iron-deficiency anemia. He has been receiving weekly infusions of intravenous iron. He has chronic myelogenous leukemia for which he has had several different types of chemotherapy. Apparently, one of his medical regimens produced significant peripheral arterial disease for which he underwent a bilateral femoral-popliteal bypass operation earlier this year. He subsequently developed thrombosis of his right- sided femoral-popliteal bypass, necessitating peripheral percutaneous revascularization. In 2014, he had a significant pleural effusion, which required a thoracentesis. A CT coronary calcium score in 2011 demonstrated a total Agatston score of 3159, consistent with a very mild atherosclerotic burden. He underwent a cardiac catheterization by Dr. Osvaldo Crespo in 2011. I personally reviewed those images. His coronaries had little if any demonstrable atherosclerotic burden by angiography. He does not have typical cardiac risk factors, such as hypertension, type 2 diabetes, hyperlipidemia, or a smoking history. The highest LDL cholesterol documented in the past 6 years was 106 in 2012. MEDICATIONS: Please refer to the medication reconciliation section of the electronic records. Current cardiac medications include aspirin, Eliquis, atorvastatin, and amlodipine. ALLERGIES: Adhesive tape, Lasix, and MSG. SOCIAL HISTORY: He is . His is with him in the emergency room. He has never been a smoker. 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 REVIEW OF SYSTEMS: Notable for cough, sputum production, chest discomfort, fatigue, and dyspnea on exertion. Otherwise, a 10-point review was negative. PHYSICAL EXAMINATION: VITAL SIGNS: Heart rate in the 70s with sinus rhythm on the monitor. Blood pressure 131/74. O2 saturation 97% on 2 L/minute nasal cannula oxygen. GENERAL: This is a chronically ill-appearing male in no acute distress. He is alert and oriented x3. HEAD AND NECK: No scleral icterus. Mucous membranes moist. Carotid pulses 2+ without bruits. There is no JVD. CHEST: Lung bradford: Minimal left basilar rales. CARDIAC: Regular rate and rhythm with a normal S1 and S2. There is no murmur or gallop. ABDOMEN: Soft, nontender, nondistended without masses. EXTREMITIES: 2+ pulses without peripheral edema. LABORATORY STUDIES: His CBC demonstrates a white blood cell count of 10.4 with 81.5% neutrophils. Hemoglobin and hematocrit are 10.2 and 33.4. His metabolic panel demonstrates a sodium of 135 with potassium 4.8, BUN 41, and creatinine 2.4. His BNP is minimally elevated at 403. Two troponin levels obtained 30 minutes apart were both normal at 0.01. His creatinine on June 12 was normal at 1.1. DIAGNOSTIC DATA: ECG: The patient has had 2 ECGs performed in the emergency room this evening. They demonstrate [address]-segment elevation in the inferior and lateral precordial leads. His ST segments do not have an appearance consistent with acute myocardial injury. They are more suggestive of early repolarization. IMPRESSION: Patient presents with a complex medical history and increasing respiratory difficulties in conjunction with protracted chest discomfort over the past 2 weeks. His history is not suggestive of an acute myocardial ischemic event. While the presence of chest discomfort with ECG abnormalities should prompt consideration for cardiac catheterization to exclude significant coronary artery disease, I think this is probably low-yield at this point in time. In addition, he is on chronic systemic anticoagulation, which increases the risk of the procedure, and his laboratory results indicate that he has acute kidney injury, which places him at significant risk for contrast-related nephropathy. He is hemodynamically stable without evidence for acute volume overload. RECOMMENDATIONS: I had a lengthy discussion with the patient and his about his current situation and our options for evaluation. He is reticent to consider cardiac catheterization and, as mentioned above, it seems unlikely that this would uncover an acute, critical coronary stenosis. I think the appropriate option at this point in time is for him to be admitted to the hospital for observation with serial cardiac enzymes. His chest x-ray report mentioned an interval increase in his cardiac silhouettes. He should have an echocardiogram performed tomorrow morning to assess for his left ventricular function, regional wall motion, and to rule out development of a pericardial effusion. Further diagnostic and therapeutic decisions await his clinical course overnight. /[id number]/MODL MTDD
[2018-07-02] MEDS ORDERED: HYDROCODONE/APAP 5/325 TAB PO PRN (00:45)
[2018-07-02] MEDS ORDERED: HYDROmorphONE/DILAUDID 1 MG/ML INJ IVP PRN (00:46)
--- NOTE | 2018-07-02 02:35 | GHP ---
DATE OF ADMISSION: 07/01/2018 SOURCE: Patient provides history, appears reliable. EMR was reviewed and case discussed with ED provider. CHIEF COMPLAINT: Shortness of breath and chest pain. HISTORY OF PRESENT ILLNESS: This is a very pleasant 72-year-old gentleman with past medical history significant for CAD, HTN, HLD, DVT on Eliquis, pneumonia with hospitalization, chronic iron deficiency anemia on intermittent iron transfusion and history of CML diagnosed 18 years ago as well as moderate pulmonary hypertension, presents to the emergency department today with complaints of 2 weeks history of left-sided left central substernal chest pain, tightness, shortness of breath and cough. Patient denies any fevers or chills. He reports increased lower extremity edema, PND and orthopnea. The patient reports that he has had episodes of PND at night and has been checking his pulse ox at home. When he wakes up he notes that occasionally his pulse ox read 68-70 or slightly higher. The patient feels like he develops chest tightness with a sharp component at the end of inspiration, felt at the top of his left lung. The patient reports increased thick yellow to clear phlegm. He feels like it is hard to mobilize and he has excessive pain with coughing. The patient also reports that he has noted some new bilateral scrotal edema, which he has never experienced previously. The patient arrived to the emergency department with the symptoms as noted above. He had a noted ST elevation in single lead and cardiac alert was called. The patient was seen by Dr. Desouza in the emergency department, and was felt not to be a STEMI. The patient is admitted for additional observation and evaluation including chest pain, rule out an echocardiogram. REVIEW OF SYSTEMS: GENERAL: The patient denies any fevers, chills, or sweats. He states that he is always cold. SKIN: The patient denies any new rashes or sores. He has a few scabs on his lower extremities. EYES: The patient denies any acute changes in vision. Does wear glasses. ENT: The patient reports that he has some tongue soreness related to his chemotherapy. CARDIOVASCULAR: The patient with chest pain as noted above. Does not radiate. RESPIRATORY: Shortness of breath with exertion and orthopnea. GI: No nausea , vomiting, abdominal pain, distention. : No dysuria or hematuria. The patient does note scrotal edema as noted above. MUSCULOSKELETAL: The patient denies any acute joint pain or myalgias. NEURO: The patient reports occasional headache worsened with his increasing pain. It is frontal in nature. He also reports chronic numbness, tingling in his feet due to chemotherapy. The remainder of 10 systems reviewed and negative except as noted above. ALLERGIES: To adhesive, latex and monosodium glutamate. HOME MEDICATIONS: As per EMR, liquid iron, albuterol, aspirin 81 mg, apixaban, atorvastatin, multivitamins, bosutinib, amlodipine. PAST MEDICAL HISTORY: Significant for CML on oral chemo, pneumonia with admission 05/30/2018, peripheral arterial disease, CAD, DVT on Eliquis, HTN, HLD , chronic iron deficiency anemia with history of iron transfusions, but no blood transfusions, moderate pulmonary hypertension, negative carotid ultrasound recently. PAST SURGICAL HISTORY: Bifem bypass with repeated procedures for thrombolytics. FAMILY HISTORY: Maternal grandfather with CML. Paternal grandfather with colon cancer. No family history of CAD. Father with history of CVA, age 57, . Mother due to emphysema, smoker. A brother is living, no known illnesses. SOCIAL HISTORY: The patient is , lives with his . He drinks occasional alcohol, but nothing on a daily basis. He does not use any illicit drugs. He denies any tobacco use. Code status is full. PHYSICAL EXAMINATION: VITAL SIGNS: Upon arrival to the emergency department, blood pressure 154/72, heart rate 84, respiratory rate 22, O2 saturation 85 on room air with temperature of 37.2. VITALS: Currently available, blood pressure 141/73, heart rate83, respiratory rate 20, on 2 L by nasal cannula, temperature 36.6. GENERAL: No acute distress. The patient does grimace and hold his chest intermittently with cough or inspiration. He does not appear in acute distress or acute respiratory distress. HEAD: Normocephalic, atraumatic. EYES: Extraocular muscles are intact. Pupils equal, round, reactive to light bilaterally and symmetric. No scleral icterus or conjunctival injection. ENT: Mucous membranes appear moist. Dentition in fair condition. No oropharyngeal erythema or exudates. NECK: Supple. Trachea midline. CV: Regular rate and rhythm. Occasional extra beat, otherwise overall regular. Slightly distant heart sounds. No murmurs, rubs, or gallops appreciated. RESPIRATORY: Lungs clear to auscultation bilaterally. No wheezes, rales, or rhonchi appreciated. Patient with occasional cough. GI : Positive bowel sounds. Soft, nontender to palpation. No rebound, guarding, or masses. No distention. : The patient without any suprapubic tenderness to palpation. He does appear to have some scrotal edema present and that is extending also to the distal penile shaft. EXTREMITIES: Patient with trace pitting edema pretibial, 1+ pedal pulses bilaterally and symmetric. The patient with some chronic lower extremity skin changes and a few scabbed lesions on the bilateral lower extremities. NEURO: Grossly nonfocal no facial drooping. Moves all extremities. PSYCH: Thought process content and questions appropriate. Patient pleasant and cooperative. LABORATORY STUDIES: WBC is 10.41, hemoglobin and hematocrit is 10.2 and 33.4, MCV of 83.7, platelet count is 294, neutrophil percent 81.5, no bands. Sodium is 135, potassium is 4.8, chloride is 102 CO2 is 11, BUN is 41, creatinine is 2.4, glucose is 132, calcium 8.4. [employer] is 403. Troponin 0.01. Repeated the same. TSH is 1.750. Chest x-ray: Image and report was reviewed, showing interval enlargement of the cardiac silhouette with central pulmonary vascular prominence compatible with congestive heart failure, circulating hypervolemia, stable pleural parenchymal disease in the lower lungs, bilateral. EKG reviewed myself shows normal sinus rhythm with an ST elevation in the anterolateral leads just over 1 mm. No T-wave inversions. No Q-waves appreciated. QTc is 375. Repeat EKG shows persistent anterolateral ST elevations with slightly decreased height. ASSESSMENT AND PLAN: A very pleasant 72-year-old gentleman with a history of coronary artery disease, peripheral artery disease, deep venous thrombosis, hypertension, hyperlipidemia, chronic myeloid leukemia, moderate pulmonary hypertension, presents with complaints of 2 weeks of chest pain and shortness of breath. 1. Chest pain. Differential diagnosis is likely pleuritic versus less likely pulmonary embolus or is acute coronary syndrome or ST-elevation myocardial infarction. The patient's initial troponin is negative. The patient's history is more consistent with a pleuritic type picture given his complaint of cough and worsening pain with movement, inspiration and cough. The patient will be monitored overnight on telemetry with plans for serial troponins. Repeat EKG p.r.n. for worsening pain. The patient to continue his Eliquis. An echocardiogram has been ordered in the morning. Patient with noted moderate pulmonary hypertension on previous echocardiogram. At this time, the patient has acute on chronic renal dysfunction, which could be prerenal due to some dehydration as patient reports he has had poor oral intake in the last several weeks versus decreased perfusion in setting of suspected congestive heart failure versus pulmonary hypertension exacerbation. We will hold off on diuresis this morning after discussion with the patient and review of his renal function. We will plan to repeat as he desires to try to sleep. We will repeat BMP in the morning and an echocardiogram again as noted above. 2. Hypoxia. The patient denies any home oxygen use. This is likely secondary to patient's cardiac issues, possible exacerbation, pulmonary hypertension or congestive heart failure. I am holding off on diuresis as noted above. Patient 's saturation improved slightly with supplemental oxygen and this will continue. 3. Acute on chronic kidney failure, stage III. Given patient appears to be slightly volume up, we will hold off on addition of any IV fluids. Patient is tolerating oral hydration. We will monitor in's and out's. At this time, the patient reports he has not been eating and drinking quite well. Hold off on fluid restriction. Monitor in's and out's and reassess in the morning. 4. Medical issues: a. Anemia, iron deficiency. At this time, patient does not require any transfusion or iron infusion. No evidence of active bleeding. We will continue to monitor. b. History of deep venous thrombosis on Eliquis. c. Peripheral artery disease. The patient without any evidence of any ischemic limbs. Continue statin, aspirin, Eliquis. d. Benign essential hypertension. Blood pressure is acceptable at this time. Continue the patient's amlodipine. e. Hyperlipidemia. Statin as noted above. f. Chronic Myeloid Leukemia. Continue patient's bosutinib. 5. Fluid, electrolyte, nutrition. Saline lock IV, electrolyte monitoring, replacement if needed. Cardiac diet ordered. 6. Prophylaxis. SCDs. On Eliquis which we will plan to resume when med rec is available for reconciliation. 7. Code status is full. DISPOSITION: Patient admitted to observation status on PCU given his chest pain. Further evaluation is needed and patient requires close cardiac monitoring. /[id number]/MODL MTDD
[2018-07-02 04:00] LABS: PLATELET COUNT 243 10^3/uL (150-400)
[2018-07-02] MEDS ORDERED: NS 500 ML IV ONE (08:30)
[2018-07-02] MEDS ORDERED: HEPARIN 10,000 UNIT/10 ML MDV (1,000 UNIT/ML) IVP PRN (09:50)
[2018-07-02] MEDS ORDERED: HEPARIN 10,000 UNIT/10 ML MDV (1,000 UNIT/ML) IVP ONE (09:50)
--- NOTE | 2018-07-02 09:55 | PDCARPN ---
Cardiology Progress Note Chief Complaint: Chest Pain, SOB Assessment/Plan: Assessment: 1. Pericarditis 2. Moderate Pericardial effusion 3. Pleuritic chest pain 4. Acute Renal Failure 5. 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 6. CML 7. Chronic Anticoagulation Plan: -Hold Eliquis secondary to potential need for pericardiocentesis vs. pericardial window -Will hold NSAIDS and Colchicine in the setting of new onset of acute renal failure -Stop Amlodipine -IV hydration NSS -Limited Echo in the morning to reasses pericardial effusion 07/02/18 09:56 Subjective: Mr. Looney is a pleasant 72 year old male, well known to my practice at [facility], with a hx of CAD based off of calcium score and minimal CAD on C in 2011, who developed acute onset of severe Peripheral Vascular Disease earlier this year due to chemotherapy for CML, requiring Bilateral Fem Pop Bypass in February 2018. Course complicated by right graft thrombosis and critical limb ischemia requiring Tpa Lysis with IR in March 2018. He has remained on anticoagulation with Eliquis (of note he did not take Eliquis last night or this AM). He has moderate bilateral renal artery stenosis seen on CTA with bilateral runoff in February 2018. Cr of 1.1 on Jun 12, 2018, currently Cr of 2.8. He has also has chronic anemia and remains on chronic iron transfusion, Hgb 10.1 today, 7.5 last month His medical course was complicated by pneumonia last month requiring hospitalization at [facility]. He presented last night with 2 week history of chest pain with pleuritic component. Initially thought to be STEMI, and was seen in consultation last night by Dr. 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 Mr. Looney continues to describe chest pain in "upper, central chest"; worse with lying down, managable at 45 degrees and resolves with sitting up. SOB with lying down also resolves with sitting up. Echo this AM demonstrates moderate circumferential pericardial effusion, without mitral inflow respiratory variation or right atrial collapse, on preliminary results. No indication for pericardiocentesis at this time. Reviewed/Discussed With: multidisciplinary team Time Spent with Patient: greater than 25 minutes Time Spent with Patient: Greater than 25 minutes spent on this patients care, greater than 50% of time spent counseling, educating, and coordinating care regarding the above mentioned plan. Objective: Vital Signs (8 Hrs) Temp Pulse Resp BP Pulse Ox 07/02/18 09:15 72 107/64 07/02/18 07:14 36.3 C 69 16 97/67 L 95 07/02/18 03:53 36.6 C 72 13 106/63 92 Intake/Output (24 Hrs) 07/01/18 07/02/18 07/03/18 05:59 05:59 05:59 Intake Total 900 Balance 900 Intake: Oral (ml) 400 IV Infused (ml) 500 Other: Weight 69.5 kg Number of Voids Toilet 1 Number of Stools Toilet 1 Result Diagrams: 07/02/18 03:49 07/02/18 03:49 Cardiac Labs: Cardiac Lab Results (72 Hrs) 07/02/18 03:49 Troponin I < 0.012 - Physical Exam Constitutional: no apparent distress Cardiovascular: regular rate and rhythm, no murmurs, no rubs, no gallops, other (no LE edema) Gastrointestinal: no tenderness Skin: no rashes Neurologic: AAOx3, CN II-XII grossly intact Psychiatric: cooperative, interactive, following commands ICD10 Worksheet Patient Problems: Problems Problem Status Onset Shortness of breath Acute Substernal chest pain Acute Hypoxia Acute Peripheral vascular disease Acute Pneumonia Acute Vascular insufficiency of extremity Acute chronic disease mgmt/ transitional care Acute
[2018-07-02] MEDS ORDERED: HEPARIN/DEXTROSE 500 ML IV SCH (10:00)
[2018-07-02] MEDS ORDERED: NS 1,000 ML IV SCH (10:30)
--- NOTE | 2018-07-02 11:24 | ECHO ---
[email or web address] [address] Main: [phone] Fax: Transthoracic Echocardiogram Name: MO MCKINLEY MR#: [id number] Study Date: 07/02/2018 Study Time: 08:43 AM Date of : 1945 Age: 72 year(s) Height: 182.9 cm (72 in.) Weight: 68.95 kg (152 lb.) BSA: 1.9 m2 Gender: Male Examination: Limited Echo Indication: Chest Pain, abnl ecg, inc lv sz; eval lvfx, wma and pericardial effusion Image Quality: Adequate Contrast: Requested by: Jeronimo Desouza BP: 97 mmHg/67 mmHg Heart Rate: Rhythm: Indication: Chest Pain, abnl ecg, inc lv sz; eval lvfx, wma and pericardial effusion Procedure Staff Technical Writer And Editor: Promise Lee [facility] Reading Physician: Dionisio Manrique MD Requesting Provider: Conclusions: Normal size left ventricle. Low normal left ventricular systolic function. EF is 50 %. No obvious regional wall motion abnormalities noted however it is difficult to rule out due to moderate pericardial effusion. Normal size right ventricle. No RV free wall collapse in diastole. No RA wall compression. The IVC is dilated. There is less than 50% respiratory excursion. Moderate pericardial effusion. No echocardiographic evidence of hemodynamic compromise. No significant respiratory variation noted on the mitral and tricuspid inflow velocities. Compared to May 2018 pericardial effusion is new. Measurements: Chambers Valvular Assessment AV/MV Valvular Assessment TV/PV Normal Normal Normal Name Value Range Name Value Range Name Value Range IVSd (2D): 1.2 cm (0.6 cm-1.1 cm) LVDd (2D): 4.8 cm (4.2 cm-5.9 cm) LVDs (2D): 3.4 cm (2.1 cm-4 cm) LVPWd (2D): 0.8 cm (0.6 cm-1 cm) Patient: MO MCKINLEY Study Date: 07/02/2018 Page 1 of 2 08:43 AM LVEF (MOD4): 50 % (>=55 %) Continued Measurements: Findings: Left Ventricle: Normal size left ventricle. There is a sigmoid shaped septum is present, which is a normal finding in the elderly. . Low normal left ventricular systolic function. EF is 50 %. No obvious regional wall motion abnormalities noted however it is difficult to rule out due to moderate pericardial effusion. Right Ventricle: Normal size right ventricle. No RV free wall collapse in diastole. Right Atrium: No RA wall compression. IVC: The IVC is dilated. There is less than 50% respiratory excursion. RAP 15 mmHg. Pericardium: Moderate pericardial effusion. No echocardiographic evidence of hemodynamic compromise. No significant respiratory variation noted on the mitral and tricuspid inflow velocities. There is a pleural effusion present. (No Signature Object) Patient: MO MCKINLEY Study Date: 07/02/2018 Page 2 of 2 08:43 AM [id number]
[2018-07-02] MEDS ORDERED: CALCIUM GLUCONATE 50 ML IV ONE (12:01)
[2018-07-02] MEDS ORDERED: SODIUM POLY SULF 15 GM/60 ML BOTTLE PO ONE (12:03)
[2018-07-02] MEDS ORDERED: D5W NS 1,000 ML IV SCH (12:15)
[2018-07-02] MEDS ORDERED: D50W 25 GM/50 ML SYR IVP ONE (12:30)
[2018-07-02] MEDS ORDERED: INSULIN REGULAR HUMAN 100 UNIT/ML UNIT IVP ONE ×2 (12:30→17:30)
--- NOTE | 2018-07-02 12:32 | HOSPPROG ---
Hospitalist Progress Note Assessment/Plan: 72 yo male with hx of CAD, PVD, CML, chronic AC admitted with CP initially presumed STEMI and ARF. Negative troponin. TTE reveal pericardial effusion. #Pericarditis and Moderate Pericardial effusion #Abnormal EKG, ST elevation, felt not to be STEMI #Pleuritic chest pain #Acute Renal Failure #Soft BP #Hyperkalemia #Hypermagnesemia #PVD sp bilat Fem Pop Bypass in February 2018, with acute graft thrombosis in Mar 2018 requiring tPa lysis. #chronic AC or Apixaban #CML #chronic Anemia Plan: -Start Heparin now, Hold Eliquis -Start IVF now. Initially was started on NS but have changed this due to Hyperkalemia per below -Stop Amlodipine -Kayexalate and low dose Insulin. Will provide dextrose amp plus addition of D5W to fluids. Calcium Gluconate -Cards is following -Renal consult, will discuss -Onc consult. Hold meds. They will see tomorrow -limited echo tomorrow total critical care time is 45 mins in pt with pericardial effusion and worsening acute renal failure and hyperkalemia as evidence by repeat labs mid morning. Subjective: feel weak. no cp or sob. no n/v Objective: Vital Signs Temp Pulse Resp BP Pulse Ox 36.3 C 72 16 107/64 95 07/02/18 07:14 07/02/18 09:15 07/02/18 07:14 07/02/18 09:15 07/02/18 07:14 Laboratory Results 07/02/18 03:49 07/02/18 10:44 07/01/18 07/02/18 07/03/18 05:59 05:59 05:59 Intake Total 900 Balance 900 - Physical Exam Constitutional: no apparent distress Eyes: PERRL Ears, Nose, Mouth, Throat: moist mucous membranes, hearing normal Cardiovascular: regular rate and rhythym, edema (trace) Respiratory: no respiratory distress, no rales or rhonchi, clear to auscultation Gastrointestinal: normoactive bowel sounds, soft, non-tender abdomen Skin: warm Neurologic: AAOx3 Psychiatric: interacting appropriately, not anxious, not encephalopathic Lymph, Heme, Immunologic: No petechiae ICD10 Worksheet Patient Problems: Problems Problem Status Onset Shortness of breath Acute Substernal chest pain Acute Hypoxia Acute Peripheral vascular disease Acute Pneumonia Acute Vascular insufficiency of extremity Acute chronic disease mgmt/ transitional care Acute
--- NOTE | 2018-07-02 12:32 | CPEKG ---
Test Reason : OPEN Blood Pressure : / mmHG Vent. Rate : 075 BPM Atrial Rate : 075 BPM P-R Int : 150 ms QRS Dur : 083 ms QT Int : 342 ms P-R-T Axes : 066 075 030 degrees QTc Int : 382 ms Sinus rhythm Lateral infarct, acute (LAD) Minimal ST elevation, inferior leads Confirmed by Devon Landa ([id number]) on 07/02/2018 12:31:57 PM Referred By: Confirmed By:Devon Landa
--- NOTE | 2018-07-02 13:18 | ASMTCMCOM ---
CM Note CM Note Notes: 07/02/2018 Case Management Note Discussed pt during rounds this morning. Pt admitted for shortness of breath and substernal chest pain. ANTONIO shows moderate pericardial effusion. ECHO planned for tomorrow. There are no therapy evals ordered at this time. Case Management d/c poc: to be determined. Discharge date is unclear at this time. Case Management to follow. Date Signed: 07/02/2018 01:18 PM Electronically Signed By:Polly Hoffman RN
[2018-07-02] MEDS ORDERED: LIDOCAINE 2% JELLY 20 ML (UROJECT) ONE (13:44)
[2018-07-02 14:01] LABS: INR 1.7 (0.83-1.16); PROTIME(PATIENT) 20.1 SEC (12.0-15.0)
--- NOTE | 2018-07-02 14:33 | GCON ---
DATE OF CONSULTATION: 07/02/2018 REASON FOR CONSULTATION: Opinion regarding acute kidney injury, hyperkalemia, and pericardial effusi on as well as acidosis in a patient with known CML. HISTORY OF PRESENT ILLNESS: The patient is a very pleasant 72-year-old gentleman with no prior histo ry of kidney disease, baseline serum creatinine dating back several years tends to be in the 0.9 to 1 .1 range, his serum creatinine in early June was 1.1. 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 Most recently, he is on bosutinib and he has been on that for approximately a year. He was admitted to [facility] in late May with a pneumonia, was treated with Rocephin and azithromycin with resolut ion of his pneumonia and symptoms. Over the course of the past several days, he has been having incr easing shortness of breath, fatigued and feeling generally poorly. He has not had fevers or chills. He has a nonproductive cough. No sputum, hemoptysis, hematemesis, epistaxis. He has been having di fficulty emptying his bladder and has some abdominal discomfort associated with that. No melena, hem atochezia, diarrhea, constipation, blurry vision, double vision, headache, orthopnea, paroxysmal noct urnal dyspnea, palpitations, syncope. He did have some chest discomfort which brought him to the [facility] department yesterday. In the emergency department, he was noted to have an elevated serum creatinine at 2.8 and a potassium of 5.5. Cardiology was consulted. Echocardiogram was done showing a moderate-sized new effusion, b ut not any apparent hemodynamic compromise. His ejection fraction was 50%. Troponins were negative. Patient was admitted to the hospital and conservative therapy was undertaken, unfortunately over course of the past several hours, his potassium has increased up to 5.9 from 5.5. His bicarbonate is now 16 and his serum creatinine is increased to 3.3. We have been asked to see for his acute kidn ey injury, hyperkalemia, and new pericardial effusion. PAST MEDICAL HISTORY: Significant for: 1. Chronic myelogenous leukemia for about 20+ years. 2. History of anemia. 3. History of iron deficiency. 4. Peripheral vascular occlusive disease. 5. Status post bilateral fem-pop bypasses, saphenous vein on the left, PTFE graft on the right. 6. Cardiac catheterization in 2011, which showed only mild coronary disease, he had a normal coronar y calcium score prior to his catheterization. 7. Clot in his right popliteal bypass graft in March of 2018 necessitating thrombolytics and percut aneous angioplasty. 8. Pneumonia in May of 2018, treated with azithromycin and Rocephin. ALLERGIES: Adhesive tape, MSG, and Lasix. CURRENT MEDICATIONS: Include: 1. [place]. 2. Aspirin 162 mg twice daily. 3. Lipitor 40 mg daily. 4. Insulin. 5. Zofran. 6. Currently on IV fluids. FAMILY HISTORY: Not contributory. SOCIAL HISTORY: He is . He is retired. He has no children. Does not use tobacco. Drinks o ccasional alcoholic beverage. No IV or recreational drugs. 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 He enjoys riding motorcycles. He has a couple of [place] motorcycles and 1 [place]. REVIEW OF SYSTEMS: A complete 12-point review of systems was performed with pertinent positives and negatives as per the previous sections. PHYSICAL EXAMINATION: VITAL SIGNS: Blood pressure currently 107/64. On admission, his blood pressu re was 154/72, low blood pressure overnight was 97/67. Pulse currently 72, respirations 16, temp 36. 3. He has no urine output documented. However, his bladder scan does show urine in his bladder. He is just unable to empty. GENERAL: He is awake, alert, cooperative. He is thin and is short of kori ath. HEENT: Pupils are reactive to light. Extraocular movements are intact. Mucous membranes are moist. NECK: Positive for mild JVD. No lymphadenopathy or thyromegaly. HEART: Regular. I can ap preciate no rub, S3 or S4. He has a grade 1/6 murmur. LUNGS: No rales or rhonchi positive. He has decreased breath sounds and some rales in the bases bilaterally. ABDOMEN: Bowel sounds are positiv e. Soft, nontender, nondistended. I can palpate his bladder and it is tender. EXTREMITIES: No cya nosis or clubbing. He has trace edema. NEUROLOGIC: No asterixis. SKIN: Changes of arterial insuf ficiency in his lower extremities bilaterally. LYMPH: No palpable lymphadenopathy. MUSCULOSKELETAL : No effusions or tenderness. LABORATORY: Most recent laboratories showed a serum sodium of 132, potassium 5.9, chloride 105, CO2 16, BUN 47, creatinine 3.3, glucose 144, calcium 8, phosphorus 4.4, magnesium 2.8. WBCs 12.77, hemog lobin 10.1, hematocrit 33.6, platelet count 243,000. Triglycerides 61, cholesterol 91, LDL 35, HDL 4 4. TSH of 1.750. BNP 403. Troponin negative. Echocardiogram shows an ejection fraction of 50% with a new effusion that does not seem to show hemod ynamic compromise. IMPRESSION: Acute kidney injury with a rise in the serum creatinine to 3.3, he has acidosis, hyperka lemia, and a new pericardial effusion. After reviewing the complications of bosutinib, hyperkalemia, acute kidney failure, and pericardial effusions are all among its side effects. RECOMMENDATIONS: 1. I have called Dr. Marcos and he will place a temporary hemodialysis catheter. 2. I would stop his bosutinib for now. 3. We will plan on performing dialysis today and tomorrow, potentially daily depending on what his e chocardiogram shows. 4. I have counseled the patient regarding hemodialysis, he agrees to proceed. 5. Counseled regarding placement of a hemodialysis catheter, he understands and agrees to proceed. Thank you for allowing me to participate in the care of your patient. If there are any questions, pl ease do not hesitate to contact us. We will be following along with you. /[id number]/MODL
--- NOTE | 2018-07-02 18:24 | GOP ---
DATE OF OPERATION: 07/02/2018 SURGEON: Beni Marcos MD WATER SYSTEMS ENGINEER: None. ANESTHESIA: 1% lidocaine. PREOPERATIVE DIAGNOSIS: Acute kidney failure. POSTOPERATIVE DIAGNOSIS: Acute kidney failure. PROCEDURE PERFORMED: Ultrasound-guided right internal jugular temporary dialysis catheter placement. FINDINGS: Successful placement of [place] temporary dialysis catheter into the right internal jugul ar vein. The catheter both flushed and withdrew appropriately and was heparin locked. SPECIMENS: None. ESTIMATED BLOOD LOSS: 5 cc. DESCRIPTION OF PROCEDURE: The patient was greeted in his bed after explaining the risks, benefits, a nd alternatives, the consent was signed by his MD [place], . The patient's right neck was then prepp ed and draped in typical sterile fashion. A [employer] time-out was performed. I suc cessfully identified the right internal jugular vein and anesthetized the overlying skin and soft tis robb over the vein. I successfully cannulated the vein with a single stick, after identifying it with ultrasound guidance. My guidewire was went in appropriately and without incident over the guidewire , then serially dilated and the catheter was then placed into the internal jugular vein. It both wit hdrew and flushed appropriately. After this, it was attached to the skin with an interrupted nylon s uture. It was appropriately heparin locked. A Biopatch and sterile dressing were then placed. The patient tolerated the procedure well without any intraoperative complications. DRAINS: None. /[id number]/MODL
[2018-07-02] MEDS: ONDANSETRON 4 MG/2 ML VIAL IVP PRN (20:28)
[2018-07-03] MEDS ORDERED: SODIUM CITRATE 4% 4 ML in SYRINGE 0 ML DIAL ONE (00:30)
[2018-07-03] MEDS ORDERED: SODIUM CITRATE 4% DIAL ONE (00:30)
[2018-07-03] MEDS: ASPIRIN EC 81 MG TAB PO SCH ×3 (00:35→22:41)
[2018-07-03 05:14] LABS: HEPATITIS B SURFACE ANTIGEN NEGATIVE (NEGATIVE)
[2018-07-03 05:45] LABS: HEPATITIS C ANTIBODY TOTAL NEGATIVE (NEGATIVE); HIV TYPE 1 AND 2 NEGATIVE (NEGATIVE)
[2018-07-03 06:09] LABS: PLATELET COUNT 262 10^3/uL (150-400)
[2018-07-03] MEDS: ONDANSETRON 4 MG/2 ML VIAL IVP PRN (08:54)
[2018-07-03] MEDS: ATORVASTATIN CALCIUM 40 MG TAB PO SCH (08:56)
--- NOTE | 2018-07-03 09:37 | PDCARPN ---
Cardiology Progress Note Assessment/Plan: Assessment: 1. Pericarditis 2. Moderate Pericardial effusion with evidence hemodynamic compromise and evidence of tamponade physiology 3. Pleuritic chest pain 4. Acute Renal Failure requriing HD 5. 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 6. CML 7. Chronic Anticoagulation Plan: -Heparin stopped at 9:10 this am -Plan for pericardiocentesis (risks and benefits discussed in detail) -IV hydration NSS 07/03/18 09:37 Subjective: Mr. Looney has developed worsening renal failure with Cr going from 2.4 to 3.9 yesterday and ultimately received emergent HD. He has remained hypotensive throughout the day yesterday with SBP primarily in the 90's. He has been off of amlodipine. Limited echo today shows worsening periardial effusion with evidence of hemodynamic compromise with RV collapse and significant Mitral inflow respiratory variation. I have reviewed with pt and plan for pericardiocentesis today. Risks and benefits discussed in detail. He also had an episode of syncope yesterday. Evidence of bradycardia on telemetry at approx 20:00 yesterday. Episode sounds vagal in origin. Reviewed/Discussed With: multidisciplinary team Time Spent with Patient: greater than 25 minutes Time Spent with Patient: Greater than 25 minutes spent on this patients care, greater than 50% of time spent counseling, educating, and coordinating care regarding the above mentioned plan. Objective: Vital Signs (8 Hrs) Temp Pulse Resp BP Pulse Ox 07/03/18 07:50 36.8 C 80 22 H 111/63 96 07/03/18 03:40 36.6 C 85 17 97/62 L 97 Intake/Output (24 Hrs) 07/02/18 07/03/18 07/04/18 05:59 05:59 05:59 Intake Total 900 2653 570 Output Total 100 Balance 900 2653 470 Intake: Oral (ml) 400 1400 IV Infused (ml) 500 1253 570 Calcium Gluconate 50 ml @ 50 100 mls/hr IV ONCE ONE Rx#:[id number] D5w Ns 1,000 ml @ 75 mls/ 452 450 hr IV CONT TOLU Rx#: [id number] Heparin/Dextrose 500 ml @ 101 120 Per Protocol IV CONT TOLU Rx#:[id number] Ns 1,000 ml @ 75 mls/hr 150 IV CONT TOLU Rx#: [id number] Ns 500 ml @ As Directed 500 IV ONCE ONE Rx#: [id number] Output: Urine (ml) 100 Catheter 100 Other: Weight 69.5 kg Number of Voids Toilet 1 Number of Stools Bedside Commode 1 Toilet 1 Result Diagrams: 07/03/18 05:50 07/03/18 05:50 Cardiac Labs: Cardiac Lab Results (72 Hrs) 07/02/18 07/02/18 07/02/18 16:00 10:44 03:49 Troponin I < 0.012 < 0.012 < 0.012 - Physical Exam Constitutional: no apparent distress Cardiovascular: regular rate and rhythm, no murmurs, no rubs, no gallops Respiratory: clear to auscultate bilat Gastrointestinal: normoactive bowel sounds Neurologic: AAOx3, CN II-XII grossly intact Psychiatric: cooperative, interactive, following commands ICD10 Worksheet Patient Problems: Problems Problem Status Onset Shortness of breath Acute Substernal chest pain Acute Hypoxia Acute Peripheral vascular disease Acute Pneumonia Acute Vascular insufficiency of extremity Acute chronic disease mgmt/ transitional care Acute
--- NOTE | 2018-07-03 09:53 | PDCONSULT ---
[facility] Director Note: Requesting provider: Dr. Wilkerson Reason for consultation: History of chronic phase CML Outpatient oncologist: Dr. 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 He was initially diagnosed in 1998 with CML and initially was treated with interferon alpha up until 2000. He then was transitioned to Gleevec up until 2009. He then received dasatanib from 2009 to 2015 complicated by pericardial effusion. Following that he received Nilotinib from [id number], with an excellent response. Unfortunately with Nilotinib he experienced significant peripheral vascular disease requiring right-sided fem-pop bypass followed by percutaneous revascularization. He most recently was placed on Bosutinib in November 2017. His most recent BCR-ABL transcript was 0.2% he was then admitted through the [facility] Emergency Room on 07/01/2018 for 2 week history of progressive shortness of breath. He was noted to have acute renal failure with significant acidosis alongside hyperkalemia. He also was noted to have a significant pericardial effusion. He has since seen Cardiology and Nephrology. He has initiated on dialysis. There is a plan to proceed with a pericardiocentesis for his effusion. 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 He is . He does not smoke. Family history: Maternal grandfather with CML. Paternal grandfather with colon cancer. Father with history of CVA at age 57. Allergies: MSG, latex Review of systems: A 12 point review systems was obtained and was otherwise negative Medications: Reviewed in the EMR Physical examination: Temp Pulse Resp BP Pulse Ox 36.8 C 80 22 H 111/63 96 07/03/18 07:50 07/03/18 07:50 07/03/18 07:50 07/03/18 07:50 07/03/18 07:50 O2 (L/minute) 4 General: Pleasant-appearing male appears in no acute distress HEENT: Oropharynx is clear extraocular movements are intact pupils equal round reactive to light, right-sided triple-lumen internal jugular catheter noted Pulmonary: Crackles at the bilateral bases Abdomen: Soft nontender nondistended bowel sounds are present Cardiac: Regular rate and rhythm slightly muffled heart sounds Extremities: No cyanosis clubbing or edema Skin: No skin lesions Psych: Appropriate affect Neuro: Moving all extremities bilaterally LABORATORY 07/03/18 07/03/18 07/03/18 05:50 05:50 05:50 WBC 16.05 10^3/uL H 10^3/uL (3.80-9.50) RBC 3.88 10^6/uL L 10^6/uL (4.40-6.38) Hgb 9.9 g/dL L g/dL (13.7-17.5) Hct 31.5 % L % (40.0-51.0) MCV 81.2 fL L fL (81.5-99.8) MCH 25.5 pg L pg (27.9-34.1) MCHC 31.4 g/dL L g/dL (32.4-36.7) RDW 25.2 % H % (11.5-15.2) Plt Count 262 10^3/uL 10^3/uL (150-400) MPV 10.1 fL fL (8.7-11.7) Neut % (Auto) Not Reported Lymph % (Auto) Not Reported [place] % (Auto) Not Reported Eos % (Auto) Not Reported Baso % (Auto) Not Reported Nucleat RBC Rel Count Not Reported Absolute Neuts (auto) Not Reported Absolute Lymphs (auto) Not Reported Absolute Monos (auto) Not Reported Absolute Eos (auto) Not Reported Absolute Basos (auto) Not Reported Absolute Nucleated RBC Not Reported Immature Gran % Not Reported Seg Neutrophils % 90.9 % % Band Neutrophils % 0.0 % % Lymphocytes % 3.0 % % Monocytes % 6.1 % % Eosinophils % 0.0 % % Basophils % 0.0 % % Metamyelocytes % 0.0 % % Myelocytes % 0.0 % % Promyelocytes % 0.0 % % Blast Cells % 0.0 % % Immature Gran # Not Reported Absolute Seg Neuts 14.59 10^3/uL H 10^3/uL (1.70-6.50) Absolute Band Neuts 0.00 10^3/uL 10^3/uL (0.00-0.70) Absolute Lymphocytes 0.48 10^3/uL L 10^3/uL (1.00-3.00) Absolute Monocytes 0.98 10^3/uL H 10^3/uL (0.30-0.80) Absolute Eosinophils 0.00 10^3/uL L 10^3/uL (0.03-0.40) Absolute Basophils 0.00 10^3/uL L 10^3/uL (0.02-0.10) Absolute Metamyelocyte 0.00 10^3/mL 10^3/mL (0.00-0.00) Absolute Myelocytes 0.00 10^3/mL 10^3/mL (0.00-0.00) Absolute Promyelocytes 0.00 10^3/uL 10^3/uL (0.00-0.00) Absolute Plasma Cells 0.00 10^3/uL 10^3/uL (0.00-0.00) Nucleated RBCs 0 /100 WBC /100 WBC (0-0) RBC/WBC/PLT Morphology Absolute Blast Cells 0.00 10^3/uL 10^3/uL (0.00-0.00) Plasma Cells % 0.0 % % Platelet Estimate ADEQUATE (ADEQ) Polychromasia Hypochromasia 1+ H Microcytic Cells Echinocytes 1+ H PT INR APTT Heparin Anti-Xa, Unfract > 1.10 IU/mL H* IU/mL (0.32-0.67) Sodium 135 mEq/L mEq/L (135-145) Potassium 5.1 mEq/L H mEq/L (3.3-5.0) Chloride 100 mEq/L mEq/L (97-110) Carbon Dioxide 23 mEq/l mEq/l (22-31) Anion Gap 12 mEq/L mEq/L (6-14) BUN 33 mg/dL H mg/dL (7-23) Creatinine 3.1 mg/dL H mg/dL (0.7-1.3) Estimated GFR 20 Glucose 141 mg/dL H mg/dL (70-100) Hemoglobin A1c Estim Average Glucose Uric Acid Calcium 8.1 mg/dL L mg/dL (8.5-10.4) Phosphorus 5.6 mg/dL H mg/dL (2.5-4.5) Magnesium 2.4 mg/dL H mg/dL (1.6-2.3) Total Bilirubin AST ALT Alkaline Phosphatase POC Troponin I Troponin I NT-Pro-B Natriuret Pep Total Protein Albumin 3.0 g/dL L g/dL (3.5-5.0) Triglycerides Cholesterol Cholesterol Risk Factr LDL Cholesterol, Calc LDL Risk Factor VLDL Cholesterol Non-HDL Cholesterol HDL Cholesterol LDL/HDL Ratio Cholesterol/HDL Ratio TSH Hep Bs Antigen Hep Bs Antibody Hepatitis C Antibody HIV 1&2 Antibody 07/03/18 07/02/18 07/02/18 04:30 20:35 18:15 WBC RBC Hgb Hct MCV MCH MCHC RDW Plt Count MPV Neut % (Auto) Lymph % (Auto) [place] % (Auto) Eos % (Auto) Baso % (Auto) Nucleat RBC Rel Count Absolute Neuts (auto) Absolute Lymphs (auto) Absolute Monos (auto) Absolute Eos (auto) Absolute Basos (auto) Absolute Nucleated RBC Immature Gran % Seg Neutrophils % Band Neutrophils % Lymphocytes % Monocytes % Eosinophils % Basophils % Metamyelocytes % Myelocytes % Promyelocytes % Blast Cells % Immature Gran # Absolute Seg Neuts Absolute Band Neuts Absolute Lymphocytes Absolute Monocytes Absolute Eosinophils Absolute Basophils Absolute Metamyelocyte Absolute Myelocytes Absolute Promyelocytes Absolute Plasma Cells Nucleated RBCs RBC/WBC/PLT Morphology Absolute Blast Cells Plasma Cells % Platelet Estimate Polychromasia Hypochromasia Microcytic Cells Echinocytes PT INR APTT Heparin Anti-Xa, Unfract > 1.10 IU/mL H* IU/mL > 1.10 IU/mL H* IU/mL (0.32-0.67) (0.32-0.67) Sodium 132 mEq/L L mEq/L (135-145) Potassium 6.1 mEq/L H mEq/L (3.3-5.0) Chloride 104 mEq/L mEq/L (97-110) Carbon Dioxide 13 mEq/l L mEq/l (22-31) Anion Gap 15 mEq/L H mEq/L (6-14) BUN 49 mg/dL H mg/dL (7-23) Creatinine 3.9 mg/dL H mg/dL (0.7-1.3) Estimated GFR 15 Glucose 281 mg/dL H mg/dL (70-100) Hemoglobin A1c Estim Average Glucose Uric Acid Calcium 8.3 mg/dL L mg/dL (8.5-10.4) Phosphorus Magnesium Total Bilirubin 0.2 mg/dL mg/dL (0.1-1.4) AST 42 IU/L IU/L (17-59) ALT 42 IU/L IU/L (21-72) Alkaline Phosphatase 92 IU/L IU/L (38-126) POC Troponin I Troponin I NT-Pro-B Natriuret Pep Total Protein 5.4 g/dL L g/dL (6.3-8.2) Albumin 3.1 g/dL L g/dL (3.5-5.0) Triglycerides Cholesterol Cholesterol Risk Factr LDL Cholesterol, Calc LDL Risk Factor VLDL Cholesterol Non-HDL Cholesterol HDL Cholesterol LDL/HDL Ratio Cholesterol/HDL Ratio TSH Hep Bs Antigen Hep Bs Antibody Hepatitis C Antibody HIV 1&2 Antibody 07/02/18 07/02/18 07/02/18 16:00 16:00 16:00 WBC RBC Hgb Hct MCV MCH MCHC RDW Plt Count MPV Neut % (Auto) Lymph % (Auto) [place] % (Auto) Eos % (Auto) Baso % (Auto) Nucleat RBC Rel Count Absolute Neuts (auto) Absolute Lymphs (auto) Absolute Monos (auto) Absolute Eos (auto) Absolute Basos (auto) Absolute Nucleated RBC Immature Gran % Seg Neutrophils % Band Neutrophils % Lymphocytes % Monocytes % Eosinophils % Basophils % Metamyelocytes % Myelocytes % Promyelocytes % Blast Cells % Immature Gran # Absolute Seg Neuts Absolute Band Neuts Absolute Lymphocytes Absolute Monocytes Absolute Eosinophils Absolute Basophils Absolute Metamyelocyte Absolute Myelocytes Absolute Promyelocytes Absolute Plasma Cells Nucleated RBCs RBC/WBC/PLT Morphology Absolute Blast Cells Plasma Cells % Platelet Estimate Polychromasia Hypochromasia Microcytic Cells Echinocytes PT INR APTT Heparin Anti-Xa, Unfract Sodium 132 mEq/L L mEq/L (135-145) Potassium 6.1 mEq/L H mEq/L (3.3-5.0) Chloride 103 mEq/L mEq/L (97-110) Carbon Dioxide 17 mEq/l L mEq/l (22-31) Anion Gap 12 mEq/L mEq/L (6-14) BUN 50 mg/dL H mg/dL (7-23) Creatinine 3.6 mg/dL H mg/dL (0.7-1.3) Estimated GFR 17 Glucose 271 mg/dL H mg/dL (70-100) Hemoglobin A1c Estim Average Glucose Uric Acid 7.6 mg/dL mg/dL (3.5-8.5) Calcium 8.0 mg/dL L mg/dL (8.5-10.4) Phosphorus Magnesium Total Bilirubin AST ALT Alkaline Phosphatase POC Troponin I Troponin I < 0.012 ng/mL ng/mL (0.000-0.034) NT-Pro-B Natriuret Pep Total Protein Albumin Triglycerides Cholesterol Cholesterol Risk Factr LDL Cholesterol, Calc LDL Risk Factor VLDL Cholesterol Non-HDL Cholesterol HDL Cholesterol LDL/HDL Ratio Cholesterol/HDL Ratio TSH Hep Bs Antigen NEGATIVE (NEGATIVE) Hep Bs Antibody NEGATIVE (NEGATIVE) Hepatitis C Antibody NEGATIVE (NEGATIVE) HIV 1&2 Antibody NEGATIVE (NEGATIVE) 07/02/18 07/02/18 07/02/18 10:44 10:44 10:44 WBC RBC Hgb Hct MCV MCH MCHC RDW Plt Count MPV Neut % (Auto) Lymph % (Auto) [place] % (Auto) Eos % (Auto) Baso % (Auto) Nucleat RBC Rel Count Absolute Neuts (auto) Absolute Lymphs (auto) Absolute Monos (auto) Absolute Eos (auto) Absolute Basos (auto) Absolute Nucleated RBC Immature Gran % Seg Neutrophils % Band Neutrophils % Lymphocytes % Monocytes % Eosinophils % Basophils % Metamyelocytes % Myelocytes % Promyelocytes % Blast Cells % Immature Gran # Absolute Seg Neuts Absolute Band Neuts Absolute Lymphocytes Absolute Monocytes Absolute Eosinophils Absolute Basophils Absolute Metamyelocyte Absolute Myelocytes Absolute Promyelocytes Absolute Plasma Cells Nucleated RBCs RBC/WBC/PLT Morphology Absolute Blast Cells Plasma Cells % Platelet Estimate Polychromasia Hypochromasia Microcytic Cells Echinocytes PT 20.1 SEC H SEC (12.0-15.0) INR 1.70 H (0.83-1.16) APTT 40.5 SEC H SEC (23.0-38.0) Heparin Anti-Xa, Unfract Sodium 132 mEq/L L mEq/L (135-145) Potassium 5.9 mEq/L H mEq/L (3.3-5.0) Chloride 105 mEq/L mEq/L (97-110) Carbon Dioxide 16 mEq/l L mEq/l (22-31) Anion Gap 11 mEq/L mEq/L (6-14) BUN 47 mg/dL H mg/dL (7-23) Creatinine 3.3 mg/dL H mg/dL (0.7-1.3) Estimated GFR 18 Glucose 144 mg/dL H mg/dL (70-100) Hemoglobin A1c Pending Estim Average Glucose Pending Uric Acid Calcium 8.0 mg/dL L mg/dL (8.5-10.4) Phosphorus Magnesium 2.8 mg/dL H mg/dL (1.6-2.3) Total Bilirubin AST ALT Alkaline Phosphatase POC Troponin I Troponin I < 0.012 ng/mL ng/mL (0.000-0.034) NT-Pro-B Natriuret Pep Total Protein Albumin Triglycerides 61 mg/dL mg/dL (40-150) Cholesterol 91 mg/dL L mg/dL (140-220) Cholesterol Risk Factr 0.4 (0.2-1.0) LDL Cholesterol, Calc 35 mg/dL L mg/dL (80-100) LDL Risk Factor 0.4 (0.2-1.0) VLDL Cholesterol 12 mg/dL mg/dL (8-25) Non-HDL Cholesterol 47 mg/dL L mg/dL (90-129) HDL Cholesterol 44 mg/dL mg/dL (40-65) LDL/HDL Ratio 0.79 RATIO L RATIO (1.00-3.64) Cholesterol/HDL Ratio 2.07 RATIO RATIO (1.00-4.97) TSH Hep Bs Antigen Hep Bs Antibody Hepatitis C Antibody HIV 1&2 Antibody 07/02/18 07/02/18 07/01/18 03:49 03:49 18:27 WBC 12.77 10^3/uL H 10^3/uL (3.80-9.50) RBC 4.06 10^6/uL L 10^6/uL (4.40-6.38) Hgb 10.1 g/dL L g/dL (13.7-17.5) Hct 33.6 % L % (40.0-51.0) MCV 82.8 fL fL (81.5-99.8) MCH 24.9 pg L pg (27.9-34.1) MCHC 30.1 g/dL L g/dL (32.4-36.7) RDW 25.5 % H % (11.5-15.2) Plt Count 243 10^3/uL 10^3/uL (150-400) MPV 9.6 fL fL (8.7-11.7) Neut % (Auto) Not Reported Lymph % (Auto) Not Reported [place] % (Auto) Not Reported Eos % (Auto) Not Reported Baso % (Auto) Not Reported Nucleat RBC Rel Count Not Reported Absolute Neuts (auto) Not Reported Absolute Lymphs (auto) Not Reported Absolute Monos (auto) Not Reported Absolute Eos (auto) Not Reported Absolute Basos (auto) Not Reported Absolute Nucleated RBC Not Reported Immature Gran % Not Reported Seg Neutrophils % 87.0 % % Band Neutrophils % 0.0 % % Lymphocytes % 4.0 % % Monocytes % 9.0 % % Eosinophils % 0.0 % % Basophils % 0.0 % % Metamyelocytes % 0.0 % % Myelocytes % 0.0 % % Promyelocytes % 0.0 % % Blast Cells % 0.0 % % Immature Gran # Not Reported Absolute Seg Neuts 11.11 10^3/uL H 10^3/uL (1.70-6.50) Absolute Band Neuts 0.00 10^3/uL 10^3/uL (0.00-0.70) Absolute Lymphocytes 0.51 10^3/uL L 10^3/uL (1.00-3.00) Absolute Monocytes 1.15 10^3/uL H 10^3/uL (0.30-0.80) Absolute Eosinophils 0.00 10^3/uL L 10^3/uL (0.03-0.40) Absolute Basophils 0.00 10^3/uL L 10^3/uL (0.02-0.10) Absolute Metamyelocyte 0.00 10^3/mL 10^3/mL (0.00-0.00) Absolute Myelocytes 0.00 10^3/mL 10^3/mL (0.00-0.00) Absolute Promyelocytes 0.00 10^3/uL 10^3/uL (0.00-0.00) Absolute Plasma Cells 0.00 10^3/uL 10^3/uL (0.00-0.00) Nucleated RBCs 0 /100 WBC /100 WBC (0-0) RBC/WBC/PLT Morphology Absolute Blast Cells 0.00 10^3/uL 10^3/uL (0.00-0.00) Plasma Cells % 0.0 % % Platelet Estimate ADEQUATE (ADEQ) Polychromasia Hypochromasia 1+ H Microcytic Cells Echinocytes 1+ H PT INR APTT Heparin Anti-Xa, Unfract Sodium 133 mEq/L L mEq/L (135-145) Potassium 5.5 mEq/L H mEq/L (3.3-5.0) Chloride 106 mEq/L mEq/L (97-110) Carbon Dioxide 19 mEq/l L mEq/l (22-31) Anion Gap 8 mEq/L mEq/L (6-14) BUN 44 mg/dL H mg/dL (7-23) Creatinine 2.8 mg/dL H mg/dL (0.7-1.3) Estimated GFR 22 Glucose 144 mg/dL H mg/dL (70-100) Hemoglobin A1c Estim Average Glucose Uric Acid Calcium 8.0 mg/dL L mg/dL (8.5-10.4) Phosphorus 4.4 mg/dL mg/dL (2.5-4.5) Magnesium 2.9 mg/dL H mg/dL (1.6-2.3) Total Bilirubin AST ALT Alkaline Phosphatase POC Troponin I 0.01 ng/mL ng/mL (0.00-0.08) Troponin I < 0.012 ng/mL ng/mL (0.000-0.034) NT-Pro-B Natriuret Pep Total Protein Albumin Triglycerides Cholesterol Cholesterol Risk Factr LDL Cholesterol, Calc LDL Risk Factor VLDL Cholesterol Non-HDL Cholesterol HDL Cholesterol LDL/HDL Ratio Cholesterol/HDL Ratio TSH Hep Bs Antigen Hep Bs Antibody Hepatitis C Antibody HIV 1&2 Antibody 07/01/18 07/01/18 07/01/18 18:04 18:01 18:01 WBC RBC Hgb Hct MCV MCH MCHC RDW Plt Count MPV Neut % (Auto) Lymph % (Auto) [place] % (Auto) Eos % (Auto) Baso % (Auto) Nucleat RBC Rel Count Absolute Neuts (auto) Absolute Lymphs (auto) Absolute Monos (auto) Absolute Eos (auto) Absolute Basos (auto) Absolute Nucleated RBC Immature Gran % Seg Neutrophils % Band Neutrophils % Lymphocytes % Monocytes % Eosinophils % Basophils % Metamyelocytes % Myelocytes % Promyelocytes % Blast Cells % Immature Gran # Absolute Seg Neuts Absolute Band Neuts Absolute Lymphocytes Absolute Monocytes Absolute Eosinophils Absolute Basophils Absolute Metamyelocyte Absolute Myelocytes Absolute Promyelocytes Absolute Plasma Cells Nucleated RBCs RBC/WBC/PLT Morphology Absolute Blast Cells Plasma Cells % Platelet Estimate Polychromasia Hypochromasia Microcytic Cells Echinocytes PT INR APTT Heparin Anti-Xa, Unfract Sodium 135 mEq/L mEq/L (135-145) Potassium 4.8 mEq/L mEq/L (3.3-5.0) Chloride 102 mEq/L mEq/L (97-110) Carbon Dioxide 22 mEq/l mEq/l (22-31) Anion Gap 11 mEq/L mEq/L (6-14) BUN 41 mg/dL H mg/dL (7-23) Creatinine 2.4 mg/dL H mg/dL (0.7-1.3) Estimated GFR 27 Glucose 132 mg/dL H mg/dL (70-100) Hemoglobin A1c Estim Average Glucose Uric Acid Calcium 8.4 mg/dL L mg/dL (8.5-10.4) Phosphorus Magnesium Total Bilirubin AST ALT Alkaline Phosphatase POC Troponin I 0.01 ng/mL ng/mL (0.00-0.08) Troponin I NT-Pro-B Natriuret Pep Total Protein Albumin Triglycerides Cholesterol Cholesterol Risk Factr LDL Cholesterol, Calc LDL Risk Factor VLDL Cholesterol Non-HDL Cholesterol HDL Cholesterol LDL/HDL Ratio Cholesterol/HDL Ratio TSH 1.750 uIU/mL uIU/mL (0.465-4.680) Hep Bs Antigen Hep Bs Antibody Hepatitis C Antibody HIV 1&2 Antibody 07/01/18 07/01/18 18:01 16:01 WBC 10.41 10^3/uL H 10^3/uL (3.80-9.50) RBC 3.99 10^6/uL L 10^6/uL (4.40-6.38) Hgb 10.2 g/dL L g/dL (13.7-17.5) Hct 33.4 % L % (40.0-51.0) MCV 83.7 fL fL (81.5-99.8) MCH 25.6 pg L pg (27.9-34.1) MCHC 30.5 g/dL L g/dL (32.4-36.7) RDW 25.7 % H % (11.5-15.2) Plt Count 294 10^3/uL 10^3/uL (150-400) MPV 9.7 fL fL (8.7-11.7) Neut % (Auto) 81.5 % H % (39.3-74.2) Lymph % (Auto) 2.2 % L % (15.0-45.0) [place] % (Auto) 14.3 % H % (4.5-13.0) Eos % (Auto) 1.3 % % (0.6-7.6) Baso % (Auto) 0.2 % L % (0.3-1.7) Nucleat RBC Rel Count 0.0 % % (0.0-0.2) Absolute Neuts (auto) 8.48 10^3/uL H 10^3/uL (1.70-6.50) Absolute Lymphs (auto) 0.23 10^3/uL L 10^3/uL (1.00-3.00) Absolute Monos (auto) 1.49 10^3/uL H 10^3/uL (0.30-0.80) Absolute Eos (auto) 0.14 10^3/uL 10^3/uL (0.03-0.40) Absolute Basos (auto) 0.02 10^3/uL 10^3/uL (0.02-0.10) Absolute Nucleated RBC 0.00 10^3/uL 10^3/uL (0-0.01) Immature Gran % 0.5 % % (0.0-1.1) Seg Neutrophils % Band Neutrophils % Lymphocytes % Monocytes % Eosinophils % Basophils % Metamyelocytes % Myelocytes % Promyelocytes % Blast Cells % Immature Gran # 0.05 10^3/uL 10^3/uL (0.00-0.10) Absolute Seg Neuts Absolute Band Neuts Absolute Lymphocytes Absolute Monocytes Absolute Eosinophils Absolute Basophils Absolute Metamyelocyte Absolute Myelocytes Absolute Promyelocytes Absolute Plasma Cells Nucleated RBCs RBC/WBC/PLT Morphology TNP Absolute Blast Cells Plasma Cells % Platelet Estimate ADEQUATE (ADEQ) Polychromasia 1+ H Hypochromasia 1+ H Microcytic Cells 2+ H Echinocytes 1+ H PT INR APTT Heparin Anti-Xa, Unfract Sodium Potassium Chloride Carbon Dioxide Anion Gap BUN Creatinine Estimated GFR Glucose Hemoglobin A1c Estim Average Glucose Uric Acid Calcium Phosphorus Magnesium Total Bilirubin AST ALT Alkaline Phosphatase POC Troponin I Troponin I NT-Pro-B Natriuret Pep 403 pg/mL H pg/mL (0-125) Total Protein Albumin Triglycerides Cholesterol Cholesterol Risk Factr LDL Cholesterol, Calc LDL Risk Factor VLDL Cholesterol Non-HDL Cholesterol HDL Cholesterol LDL/HDL Ratio Cholesterol/HDL Ratio TSH Hep Bs Antigen Hep Bs Antibody Hepatitis C Antibody HIV 1&2 Antibody Assessment and plan: This is a very pleasant 72-year-old male with a longstanding history of chronic phase CML who was admitted for acute renal failure and symptomatic pericardial effusion. 1. Chronic phase CML: He has had multiple lines of therapy as noted above including interferon, Gleevec, dasatanib, nilotinib, and most recent bosutinib. I suspect that his current issues with acute renal insufficiency and pericardial effusion is secondary to his bosutinib. He will obviously need this held until the acute issues have resolved. One consideration would be to transition him to Omacetaxine Mepesuccinate but this would be considered as an outpatient with Dr. Schaeffer. 2. Acute renal failure: He currently is receiving hemodialysis through a right IJ catheter. He had significant hyperkalemia and acidosis. Appreciate Nephrology assistance. 3. Pericardial effusion: This appears worse today on echocardiogram. He has had episodes of hypertension and overnight a syncopal episode. He is proceeding with a pericardiocentesis today. All questions were answered. He voices understanding of the plan. We will continue to follow along.
[2018-07-03] MEDS ORDERED: LIDOCAINE 1% 300 MG/30 ML SDV ONE (10:42)
[2018-07-03] MEDS ORDERED: fentaNYL 100 MCG/2 ML INJ ONE (10:42)
[2018-07-03] MEDS ORDERED: MIDAZOLAM 2 MG/2 ML VIAL ONE (10:42)
--- NOTE | 2018-07-03 12:08 | CPR ---
DATE OF PROCEDURE: 07/03/2018 INDICATION FOR PROCEDURE: Moderate pericardial effusion with tamponade physiology and hypotension. SUMMARY: Mr. Looney is a pleasant 72-year-old gentleman with known CML who presented with 2 weeks of progressive chest pain and shortness of breath that was positional and respirophasic in nature. Ech ocardiogram yesterday demonstrated moderate pericardial effusion. Over the last 24 hours pericardial effusion has progressed and there is now evidence of RV collapse and mitral inflow respiratory varia tion of significance. As a result of these findings, coupled with hypotension, decision was made to pursue pericardiocentesis. Heparin was discontinued 2 hours prior to procedure. Consents were obtai bri prior to start of procedure. DESCRIPTION OF PROCEDURE: After informed consent was obtained, Mr. Looney was brought to the cardiac catheterization lab where he was prepped and draped in a sterile fashion. Using 1% lidocaine the sk in was anesthetized just below the costophrenic margin on the left side. A needle was used to enter the pericardium. Serosanguinous to bloody drainage was obtained. Agitated saline contrast was injec silvia demonstrating appropriate placement of needle in the pericardial space. Wire was advanced. Dila tor followed. After dilator was removed a pigtail catheter was in placed. 600 cc of serosanguineous to sanguinous non-clotting blood was removed from the pericardium without incident. Patient tolerat ed the procedure well. There was evidence of marked improvement in RV function and marked improvemen t in systolic blood pressure from the mid 90s to 117 at the end of procedure. PLAN: Patient will be left with pigtail catheter in place with plan for q.4 hour drainage. Will ryan n for repeat imaging tomorrow. Pericardial fluid will be sent to lab for cytology cell counts. /[id number]/MODL
--- NOTE | 2018-07-03 12:10 | HOSPPROG ---
Hospitalist Progress Note Assessment/Plan: 72 yo male with hx of CAD, PVD, CML, chronic AC admitted with CP initially presumed STEMI and ARF. Negative troponin. TTE reveal pericardial effusion. 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 #chronic AC -Holding Heparin given Pericardiocentesis -Holding home Apixaban #CML -Holding Bosutinib which is likely the offending agent -Onc is following #chronic Anemia Plan: The pt had a syncopal episode overnight. He needs pericardiocentesis today. Dr. Manrique to perform this morning Holding AC Holding IVF, worsening volume status Needs HD today d/w card, nursing, CM total critical care time is 35 mins Subjective: no cp or sob. no n/v. BP is better this morning but had syncopal episode with hypotension overnight. Objective: Vital Signs Temp Pulse Resp BP Pulse Ox 36.8 C 80 22 H 111/63 96 07/03/18 07:50 07/03/18 07:50 07/03/18 07:50 07/03/18 07:50 07/03/18 07:50 Laboratory Results 07/03/18 05:50 07/03/18 05:50 07/02/18 07/03/18 07/04/18 05:59 05:59 05:59 Intake Total 900 2653 570 Output Total 100 Balance 900 2653 470 PT 20.1 SEC (12.0-15.0) H 07/02/18 10:44 INR 1.70 (0.83-1.16) H 07/02/18 10:44 - Physical Exam Constitutional: no apparent distress Eyes: PERRL Ears, Nose, Mouth, Throat: moist mucous membranes, hearing normal Cardiovascular: regular rate and rhythym, No edema Respiratory: no respiratory distress, reduced air movement Skin: warm Neurologic: AAOx3 Psychiatric: interacting appropriately, not anxious, not encephalopathic Lymph, Heme, Immunologic: No petechiae ICD10 Worksheet Patient Problems: Problems Problem Status Onset Shortness of breath Acute Substernal chest pain Acute Hypoxia Acute Peripheral vascular disease Acute Pneumonia Acute Vascular insufficiency of extremity Acute chronic disease mgmt/ transitional care Acute
[2018-07-03] MEDS: BENZONATATE 100 MG CAP PO PRN ×2 (14:32→22:41)
--- NOTE | 2018-07-03 14:41 | SOAPPROG ---
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, HD yesterday hyperkalemia due to chemo, better today pericardial effusion due to chemo, pericardial drain place 07/03/18 creat about 1 three weeks ago Plan: HD today and tomorrow continue support suspect will recover his renal function in time lang cath, having a difficult time voiding 07/03/18 14:36 Subjective: friends and family at bedside all questions answered energy better today appetite improving slept well no cp sob nausea or vomiting spirits good Objective: Vital Signs Temp Pulse Resp BP Pulse Ox 36.6 C 74 20 118/59 L 91 L 07/03/18 12:55 07/03/18 12:55 07/03/18 12:55 07/03/18 12:55 07/03/18 12:55 Microbiology 07/03/18 11:30 Gram Stain - Final Pericardial Fluid - Aspirate Laboratory Results 07/03/18 05:50 07/03/18 05:50 07/02/18 07/03/18 07/04/18 05:59 05:59 05:59 Intake Total 900 2653 620 Output Total 100 Balance 900 2653 520 PT 20.1 SEC (12.0-15.0) H 07/02/18 10:44 INR 1.70 (0.83-1.16) H 07/02/18 10:44 Physical Exam - Physical Exam General Appearance: alert, thin Neck: normal inspection, other (RIJ temp HD cath in place) Respiratory: other (occas rales and wh) Cardiac/Chest: regular rate, rhythm, systolic murmur, No edema, No friction rub Abdomen: normal bowel sounds, non-tender, soft Skin: warm/dry Neuro/Psych: alert, normal mood/affect, oriented x 3 ICD10 Worksheet Patient Problems: Problems Problem Status Onset Shortness of breath Acute Substernal chest pain Acute Hypoxia Acute Peripheral vascular disease Acute Pneumonia Acute Vascular insufficiency of extremity Acute chronic disease mgmt/ transitional care Acute
[2018-07-03] MEDS ORDERED: SODIUM CITRATE 4% 5 ML in SYRINGE 0 ML DIAL ONE (19:30)
--- NOTE | 2018-07-03 21:33 | PDMN ---
Medical Necessity Medical necessity: [facility] [place] M270 Pericarditis: 72 yo old w SOB and CP initially obs for cardiac workup. Also w/ acute on chronic kidney fx, stage III. Cardioly consult, pt dx w/ pericarditis, add IV hydration, during obs stay determined pericarditis w/ tamponade s/sx, pt needed pericardiocentesis and pt creatinine trending up, nephro consult, pt to start on dialysis, dialysis cath placed surgically. Change to IP status as pt requiring>48 hours ongoing monitoring and tx of above. Hx CML on po chemo, pneumonia admit 05/28, PAD, CAD, DVT, HTN, HLD , fe deficient anemia w/ iron tx, pulm HTN, bifem bypass. change to IP status 07/03/18@1431 per MD order
[2018-07-03 22:17] LABS: HEPATITIS B CORE AB IGM NEGATIVE (NEGATIVE)
[2018-07-04 04:24] LABS: PLATELET COUNT 236 10^3/uL (150-400)
[2018-07-04] MEDS: BENZONATATE 100 MG CAP PO PRN (04:41)
[2018-07-04] MEDS: ASPIRIN EC 81 MG TAB PO SCH ×2 (09:10→22:38)
[2018-07-04] MEDS: ATORVASTATIN CALCIUM 40 MG TAB PO SCH (09:10)
--- NOTE | 2018-07-04 10:38 | PDCARPN ---
Cardiology Progress Note Assessment/Plan: Assessment: 1. Pericarditis 2. Moderate Pericardial effusion with evidence hemodynamic compromise and evidence of tamponade physiology 3. Pleuritic chest pain 4. Acute Renal Failure requriing HD 5. 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 6. CML 7. Chronic Anticoagulation Plan: -Pericardial drain pulled at 10:30 AM todya -CXR pa and lateral now -Restart anticoagulation: Lovenox 1 mg/kg q 24 hrs in setting of renal insufficiency -Limited echo tomorrow. If pericardial effusion reaccumulates, will consult CT surgery for pericardial window. -No colchicine or NSAIDs -No amlodipine -HD per Renal 07/04/18 10:38 Subjective: Mr. Looney is feeling better this AM. SOB and chest pain resolved. Pericardiocentesis yesterday drained 600 cc of bloody fluid, gram stain negative. Cytology pending. Pericardial drain accumulated an additional 200 cc overnight. Limited echo this AM demostrates trace residual effusion. Drain removed this AM. It had been pulled overnight in his sleep. He is going for cxr PA/LAT. BP remains low with SBP in the 90's. No new vasovagal events. No dizziness, lightheadedness. He had HD yesterday. Cr improving, 2.8 this AM. 3.1 yesterday morning, peak of 3.9 this admission. I think his pericardial effusion and renal dysfunction have been driven by chemotherapeutic meds. Reviewed/Discussed With: hospitalist Time Spent with Patient: greater than 25 minutes Time Spent with Patient: Greater than 25 minutes spent on this patients care, greater than 50% of time spent counseling, educating, and coordinating care regarding the above mentioned plan. Objective: Vital Signs (8 Hrs) Temp Pulse Resp BP Pulse Ox 07/04/18 08:00 36.6 C 97 18 97/53 L 94 07/04/18 04:00 37.2 C 94 19 95/52 L 93 Intake/Output (24 Hrs) 07/03/18 07/04/18 07/05/18 05:59 05:59 05:59 Intake Total 750 Output Total 232 Balance 518 Intake: Oral (ml) 750 Output: Urine (ml) 150 Catheter 150 Pericardial Drain Output 82 (ml) #1 Chest Pericardial 82 Other: Weight 73.6 kg Intake Quantity Yes Sufficient Result Diagrams: 07/04/18 03:48 07/04/18 03:48 - Physical Exam Cardiovascular: regular rate and rhythm, no murmurs, no rubs, no gallops, other (NO edema) Respiratory: clear to auscultate bilat, no crackles, no wheezes Gastrointestinal: normoactive bowel sounds Musculoskeletal: no muscular tenderness Neurologic: AAOx3, CN II-XII grossly intact Psychiatric: cooperative, interactive, following commands ICD10 Worksheet Patient Problems: Problems Problem Status Onset Shortness of breath Acute Substernal chest pain Acute Hypoxia Acute Peripheral vascular disease Acute Pneumonia Acute Vascular insufficiency of extremity Acute chronic disease mgmt/ transitional care Acute
--- NOTE | 2018-07-04 12:13 | ASMTCMCOM ---
CM Note CM Note Notes: 07/04/2018 Case Management Note Discussed pt during rounds this morning. Pt to have ECHO and chest x ray today. Pericardiocentesis yesterday with cultures pending. HD continues. There are no therapy evals ordered at this time. Case Management d/c poc: to be determined. Case Management to follow. Date Signed: 07/04/2018 12:12 PM Electronically Signed By:Polly Hoffman RN
--- NOTE | 2018-07-04 13:40 | SOAPPROG ---
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 He was initially diagnosed in 1998 with CML and initially was treated with interferon alpha up until 2000. He then was transitioned to Gleevec up until 2009. He then received dasatanib from 2009 to 2015 complicated by pericardial effusion. Following that he received Nilotinib from [id number], with an excellent response. Unfortunately with Nilotinib he experienced significant peripheral vascular disease requiring right-sided fem-pop bypass followed by percutaneous revascularization. He most recently was placed on Bosutinib in November 2017. His most recent BCR-ABL transcript was 0.2% he was then admitted through the [facility] Emergency Room on 07/01/2018 for 2 week history of progressive shortness of breath. He was noted to have acute renal failure with significant acidosis alongside hyperkalemia. He also was noted to have a significant pericardial effusion. He has since seen Cardiology and Nephrology. He has initiated on dialysis. His pericardial catheter was removed today. He is currently being monitored. He has developed a. fib. Decisions about his treatment for CML will be made after he has improved/ stabilized from his current side effects of bosutinib. Plan: Rx pericardial effusion/tamponade as you are doing Rx a.fib Continue dialysis (hopefully a temporary requirement) Hold Bosutinib Subjective: No acute distress. A+Ox3 Objective: Vital Signs Temp Pulse Resp BP Pulse Ox 36.7 C 90 20 102/59 L 93 07/04/18 12:00 07/04/18 12:00 07/04/18 12:00 07/04/18 12:00 07/04/18 12:00 Laboratory Results 07/04/18 03:48 07/04/18 03:48 07/02/18 07/03/18 07/04/18 23:59 23:59 23:59 Intake Total 250 500 Output Total 60 172 Balance 190 328 PT 20.1 SEC (12.0-15.0) H 07/02/18 10:44 INR 1.70 (0.83-1.16) H 07/02/18 10:44 Physical Exam - Physical Exam General Appearance: alert Respiratory: other (bilateral rubs) Cardiac/Chest: irregularly irregular Skin: pallor Neuro/Psych: normal mood/affect, oriented x 3 ICD10 Worksheet Patient Problems: Problems Problem Status Onset Shortness of breath Acute Substernal chest pain Acute Hypoxia Acute Peripheral vascular disease Acute Pneumonia Acute Vascular insufficiency of extremity Acute chronic disease mgmt/ transitional care Acute
[2018-07-04] MEDS ORDERED: HEPARIN 10,000 UNIT/10 ML MDV (1,000 UNIT/ML) IVP ONE (15:21)
[2018-07-04] MEDS ORDERED: HEPARIN 10,000 UNIT/10 ML MDV (1,000 UNIT/ML) IVP PRN (15:21)
--- NOTE | 2018-07-04 15:26 | HOSPPROG ---
Hospitalist Progress Note Assessment/Plan: 72 yo male with hx of CAD, PVD, CML, chronic AC admitted with CP initially presumed STEMI and ARF. Negative troponin. TTE reveal pericardial effusion. #Pericarditis and Moderate Pericardial effusion -TTE showed worsening effusion and got pericardiocentesis on 07/03 -Cards is following -repeat TTE tomorrow. If reaccumulates, then will need CT surgery consultation #Syncope on 07/02 -Etiology unclear #Abnormal EKG, ST elevation, felt not to be STEMI #Pleuritic chest pain #Acute Renal Failure -Urgent HD required on 07/02. Daily HD since, scheduled for today -minimal urine output, lang is in #Soft BP: monitor closely #Hyperkalemia -resolving #Hypermagnesemia: resolving #PVD sp bilat Fem Pop Bypass in February 2018, with acute graft thrombosis in Mar 2018 requiring tPa lysis. #chronic AC -restart Heparin. Can stop if pericardial effusion reaccumulates. Given he is on HD, will not do Lovenox -Holding home Apixaban #CML -Holding Bosutinib which is likely the offending agent -Onc is following #chronic Anemia #Afib: per Cards Subjective: no cp or sob. no n/v Objective: Vital Signs Temp Pulse Resp BP Pulse Ox 36.7 C 98 20 84/52 L 93 07/04/18 12:00 07/04/18 14:32 07/04/18 12:00 07/04/18 14:32 07/04/18 12:00 Laboratory Results 07/04/18 03:48 07/04/18 03:48 07/03/18 07/04/18 07/05/18 05:59 05:59 05:59 Intake Total 750 Output Total 232 Balance 518 PT 20.1 SEC (12.0-15.0) H 07/02/18 10:44 INR 1.70 (0.83-1.16) H 07/02/18 10:44 - Physical Exam Constitutional: no apparent distress Eyes: PERRL Ears, Nose, Mouth, Throat: moist mucous membranes, hearing normal Cardiovascular: irregularly irregular, No edema Respiratory: no respiratory distress, no rales or rhonchi, reduced air movement Gastrointestinal: normoactive bowel sounds, soft, non-tender abdomen Skin: warm Neurologic: AAOx3 Psychiatric: interacting appropriately, not anxious, not encephalopathic Lymph, Heme, Immunologic: No petechiae ICD10 Worksheet Patient Problems: Problems Problem Status Onset Shortness of breath Acute Substernal chest pain Acute Hypoxia Acute Peripheral vascular disease Acute Pneumonia Acute Vascular insufficiency of extremity Acute chronic disease mgmt/ transitional care Acute
[2018-07-04] MEDS ORDERED: HEPARIN/DEXTROSE 500 ML IV SCH (15:30)
[2018-07-04 15:53] LABS: PLATELET COUNT 279 10^3/uL (150-400)
[2018-07-04 16:01] LABS: INR 1.47 (0.83-1.16)
[2018-07-04] MEDS ORDERED: SODIUM CITRATE 4% 5 ML in SYRINGE 0 ML DIAL PRN (19:47)
--- NOTE | 2018-07-04 20:50 | SOAPPROG ---
SOAP Progress Note Assessment/Plan: Assessment: 1. arf: direct chemo toxicity vs ischemic atn from hypotension. UA not c/w atn but could be confounded by anticoag, will repeat. Hd today for third consecutive day, will plan to hold next 2 days to eval for evidence of recovery. Uo not sig increased, therefore no obvious evidence of recovery yet. 2. hyperK: resolved with hd 3. pericardial effusion: now s/p drain. 4. hypotension: remains a bit tenuous but overall seems improved. Plan: 07/04/18 20:47 Subjective: Seen on hd. Feeling better s/p pericardial drain yesterday. Tolerating hd thus far with no sig hypotension. Objective: Vital Signs Temp Pulse Resp BP Pulse Ox 36.7 C 85 17 108/60 91 L 07/04/18 12:00 07/04/18 19:11 07/04/18 16:00 07/04/18 19:11 07/04/18 19:11 Laboratory Results 07/04/18 15:45 07/04/18 03:48 07/03/18 07/04/18 07/05/18 05:59 05:59 05:59 Intake Total 750 546.5 Output Total 232 120 Balance 518 426.5 PT 18.0 SEC (12.0-15.0) H 07/04/18 15:45 INR 1.47 (0.83-1.16) H 07/04/18 15:45 Physical Exam - Physical Exam General Appearance: no apparent distress Respiratory: lungs clear Cardiac/Chest: irregularly irregular, other (no definite rub) Abdomen: non-tender, soft Extremities: pedal edema (none) ICD10 Worksheet Patient Problems: Problems Problem Status Onset Shortness of breath Acute Substernal chest pain Acute Hypoxia Acute Peripheral vascular disease Acute Pneumonia Acute Vascular insufficiency of extremity Acute chronic disease mgmt/ transitional care Acute
[2018-07-05 03:56] LABS: PLATELET COUNT 250 10^3/uL (150-400)
[2018-07-05] MEDS: ASPIRIN EC 81 MG TAB PO SCH (08:31)
[2018-07-05] MEDS: ATORVASTATIN CALCIUM 40 MG TAB PO SCH (08:31)
--- NOTE | 2018-07-05 10:47 | PDCARPN ---
Cardiology Progress Note Assessment/Plan: Assessment: 1. Pericarditis 2. Moderate Pericardial effusion with evidence hemodynamic compromise and evidence of tamponade physiology 3. Pleuritic chest pain 4. Acute Renal Failure requriing HD 5. 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 6. CML 7. Chronic Anticoagulation 8. New onset Paroxysmal Afib on 07/04/18 Plan: -repeat stat H/H, if Hgb remains in the 7's, recommend transfusion and stop Heparin gtt -D/C lang -Limited echo in the AM, if effusion reaccumulates, will consult CT surgery for window -No Amlodipine -Will follow 07/05/18 10:48 Subjective: MR. Looney is feeling well this AM. He had HD last PM. Cr continues to improve , down to 2.0 (peak of 3.9, 2.8 yesterday morning). Of note he did develop new onset of Paroxysmal Afib, which was asymptomatic. He is now in NSR in the 80' s. He continues to by hypotensive. SBP in the 80s yesterday. Improved after HD to low 100's. He is off of his out pt amlodipine. Labwork today demonstrates marked decline in Hgb into the 7's (10 on admission) . No clear bleeding source. He does have a known hx of iron deficiency anemia and had a Hgb of 7.5 when I saw him in May 2018. He has been on Iron infusions with Dr. Schaeffer. He remains on Heparin gtt due to hx of acute thrombosis of right LE bypass graft requiring Tpa lysis in March 2018. Note, pericardial drain has been out for 24 hours. No friction rub. Limited echo yesterday demonstrated trace pericardial effusion. Reviewed/Discussed With: hospitalist Objective: Vital Signs (8 Hrs) Temp Pulse Resp BP Pulse Ox 07/05/18 07:33 36.4 C 72 14 100/60 98 07/05/18 03:38 36.9 C 78 18 94/56 L 94 Intake/Output (24 Hrs) 07/04/18 07/05/18 07/06/18 05:59 05:59 05:59 Intake Total 750 746.5 Output Total 232 270 Balance 518 476.5 Intake: Oral (ml) 750 700 IV Infused (ml) 46.5 Heparin/Dextrose 500 ml @ 46.5 Per Protocol IV CONT TOLU Rx#:[id number] Output: Urine (ml) 150 270 Catheter 150 270 Pericardial Drain Output 82 (ml) #1 Chest Pericardial 82 Other: Weight 73.6 kg 71.622 kg Intake Quantity Yes Sufficient Number of Stools Catheter 0 Result Diagrams: 07/05/18 03:36 07/05/18 03:36 - Physical Exam Cardiovascular: regular rate and rhythm, no murmurs, no rubs, no gallops Peripheral Pulses: 2+: carotid (R), carotid (L) Respiratory: clear to auscultate bilat Gastrointestinal: normoactive bowel sounds Genitourinary: lang in urethra, other (mild moderate penile and scrotal edema ) Neurologic: AAOx3, CN II-XII grossly intact Psychiatric: cooperative, interactive, following commands ICD10 Worksheet Patient Problems: Problems Problem Status Onset Shortness of breath Acute Substernal chest pain Acute Hypoxia Acute Peripheral vascular disease Acute Pneumonia Acute Vascular insufficiency of extremity Acute chronic disease mgmt/ transitional care Acute
--- NOTE | 2018-07-05 13:09 | SOAPPROG ---
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 He was initially diagnosed in 1998 with CML and initially was treated with interferon alpha up until 2000. He then was transitioned to Gleevec up until 2009. He then received dasatanib from 2009 to 2015 complicated by pericardial effusion. Following that he received Nilotinib from [id number], with an excellent response. Unfortunately with Nilotinib he experienced significant peripheral vascular disease requiring right-sided fem-pop bypass followed by percutaneous revascularization. He most recently was placed on Bosutinib in November 2017. His most recent BCR-ABL transcript was 0.2% he was then admitted through the [facility] Emergency Room on 07/01/2018 for 2 week history of progressive shortness of breath. He was noted to have acute renal failure with significant acidosis alongside hyperkalemia. He also was noted to have a significant pericardial effusion. He has since seen Cardiology and Nephrology. He has initiated on dialysis. - paroxysmal A.Fib. - in sinus rhythm at the moment. Will get 1 unit PRBC - Pericardial effusion - cytology/flow pending. Pericardial catheter out. Will get echo tomorrow 06 JUL 2018 - CML - Rx on hold - Renal failure - dialysis on hold for 2 days to assess recovery. Decisions about his treatment for CML will be made after he has improved/ stabilized from his current side effects of bosutinib. Plan: 1 unit PRBC today Re-eval status of pericardial fluid in AM Monitor renal function Hold Bosutinib Subjective: No complaints. Feeling a little better in general. Objective: Vital Signs Temp Pulse Resp BP Pulse Ox 36.7 C 77 14 107/59 L 94 07/05/18 11:34 07/05/18 11:34 07/05/18 11:34 07/05/18 11:34 07/05/18 11:34 Laboratory Results 07/05/18 11:12 07/05/18 03:36 07/03/18 07/04/18 07/05/18 23:59 23:59 23:59 Intake Total 250 1046.5 200 Output Total 60 292 150 Balance 190 754.5 50 PT 18.0 SEC (12.0-15.0) H 07/04/18 15:45 INR 1.47 (0.83-1.16) H 07/04/18 15:45 Physical Exam - Physical Exam General Appearance: alert, no apparent distress Respiratory: lungs clear Cardiac/Chest: regular rate, rhythm Abdomen: normal bowel sounds Skin: pallor Neuro/Psych: alert, normal mood/affect, oriented x 3 ICD10 Worksheet Patient Problems: Problems Problem Status Onset Shortness of breath Acute Substernal chest pain Acute Hypoxia Acute Peripheral vascular disease Acute Pneumonia Acute Vascular insufficiency of extremity Acute chronic disease mgmt/ transitional care Acute
--- NOTE | 2018-07-05 13:11 | HOSPPROG ---
Hospitalist Progress Note Assessment/Plan: 72 yo male with hx of CAD, PVD, CML, chronic AC admitted with CP initially presumed STEMI and ARF. Negative troponin. TTE reveal pericardial effusion. #Pericarditis and Moderate Pericardial effusion -TTE showed worsening effusion and got pericardiocentesis on 07/03 -Cards is following -repeat TTE tomorrow. If reaccumulates, then will need CT surgery consultation #Syncope on 07/02 -Etiology likely multifactorial #Abnormal EKG, ST elevation, felt not to be STEMI #Pleuritic chest pain #Acute Renal Failure -Urgent HD required on 07/02. Had HD x 3 days. No HD planned today or tomorrow with hopes of further renal recovery. He is now making some Urine. -Cr is improving but urine studies c/w prerenal #Soft BP: monitor closely -Overall improving #Hyperkalemia -resolved #Hypermagnesemia: resolved #PVD sp bilat Fem Pop Bypass in February 2018, with acute graft thrombosis in Mar 2018 requiring tPa lysis. #chronic AC -Holding home Apixaban #CML -Holding Bosutinib which is likely the offending agent -Onc is following #Acute on chronic Anemia #Afib: has converted back to NSR Plan: -VS are stable, appears to be improving. Repeat TTE tomorrow -repeat Hgb is in the 7's. will transfuse 1 unit now. Hope to do a 2nd unit if he is able to tolerate the first. This should help the BP and hopefully renal function as well. Etiology of the drop is unclear. He has not had any bloody stools. He hasn't had a BM is 2 days. He denies abd pain, back pain, there are no bruising. We will hold Heparin. We will hold Aspirin for now. Trend H/H. W/u anemia -Can hopefully remain off HD -Remove Dela Cruz today -Ok to start PT D/w Cardiology and nursing Subjective: no cp or sob. BP is better. no abd pain. Hgb is down Objective: Vital Signs Temp Pulse Resp BP Pulse Ox 36.7 C 77 14 107/59 L 94 07/05/18 11:34 07/05/18 11:34 07/05/18 11:34 07/05/18 11:34 07/05/18 11:34 Laboratory Results 07/05/18 11:12 07/05/18 03:36 07/04/18 07/05/18 07/06/18 05:59 05:59 05:59 Intake Total 750 746.5 Output Total 232 270 Balance 518 476.5 PT 18.0 SEC (12.0-15.0) H 07/04/18 15:45 INR 1.47 (0.83-1.16) H 07/04/18 15:45 - Physical Exam Constitutional: no apparent distress Eyes: PERRL, EOMI Ears, Nose, Mouth, Throat: moist mucous membranes, hearing normal Cardiovascular: regular rate and rhythym, No edema Respiratory: no respiratory distress, no rales or rhonchi, clear to auscultation Gastrointestinal: normoactive bowel sounds, soft, non-tender abdomen Skin: warm Musculoskeletal: generalized weakness Neurologic: AAOx3 Psychiatric: interacting appropriately, not anxious, not encephalopathic Lymph, Heme, Immunologic: No petechiae ICD10 Worksheet Patient Problems: Problems Problem Status Onset Shortness of breath Acute Substernal chest pain Acute Hypoxia Acute Peripheral vascular disease Acute Pneumonia Acute Vascular insufficiency of extremity Acute chronic disease mgmt/ transitional care Acute
--- NOTE | 2018-07-05 13:25 | ASMTCMCOM ---
CM Note CM Note Notes: 07/05/2018 Case Management Note Discussed pt during rounds this morning. It's less likely tday that pt will need HD at discharge. PT eval ordered. Met w/pt to discuss d/c needs. Pt is and prior to admission independent with ADL's including driving. Pt has not had the need for home health in the past. Case Management d/c poc: to be determined pending PT eval Case Management to follow. Date Signed: 07/05/2018 01:24 PM Electronically Signed By:Polly Hoffman RN
--- NOTE | 2018-07-05 17:52 | SOAPPROG ---
SOAP Progress Note Assessment/Plan: Assessment: 1. arf: direct chemo toxicity vs ischemic atn from hypotension. Prerenal urinary indices, UA not c/w atn but could be confounded by anticoag, repeat pending. Hd 3 consecutive days, now holding to eval for evidence of recovery. Uo not really increased, no obvious evidence of recovery yet. Lytes and volume stable, could probably watch several days off hd if needed. 2. hyperK: resolved with hd 3. pericardial effusion: now s/p drain, for repeat echo. 4. hypotension: improved post-pericardiocentesis. Plan: 07/04/18 20:47 07/05/18 17:49 Subjective: Dela Cruz out earlier today. Has some penile swelling. Not much uo. Objective: Vital Signs Temp Pulse Resp BP Pulse Ox 36.5 C 77 18 101/60 96 07/05/18 15:32 07/05/18 15:32 07/05/18 15:32 07/05/18 15:32 07/05/18 15:32 Laboratory Results 07/05/18 11:12 07/05/18 03:36 07/04/18 07/05/18 07/06/18 05:59 05:59 05:59 Intake Total 750 746.5 Output Total 232 270 150 Balance 518 476.5 -150 PT 18.0 SEC (12.0-15.0) H 07/04/18 15:45 INR 1.47 (0.83-1.16) H 07/04/18 15:45 Physical Exam - Physical Exam General Appearance: no apparent distress Respiratory: lungs clear, decreased breath sounds Cardiac/Chest: regular rate, rhythm (no rub appreciated) Abdomen: non-tender, soft Extremities: pedal edema (none) ICD10 Worksheet Patient Problems: Problems Problem Status Onset Shortness of breath Acute Substernal chest pain Acute Hypoxia Acute Peripheral vascular disease Acute Pneumonia Acute Vascular insufficiency of extremity Acute chronic disease mgmt/ transitional care Acute
[2018-07-06] MEDS ORDERED: DILTIAZEM 30 MG TAB PO SCH (04:45)
[2018-07-06 05:03] LABS: PLATELET COUNT 323 10^3/uL (150-400)
--- NOTE | 2018-07-06 09:20 | ECHO ---
[email or web address] [place] [id number] Main: [phone] Fax: Transthoracic Echocardiogram Name: MO MCKINLEY MR#: [id number] Study Date: 07/04/2018 Study Time: 09:35 AM Date of : 1945 Age: 72 year(s) Height: 152.4 cm (60 in.) Weight: 70.31 kg (155 lb.) BSA: 1.67 m2 Gender: Male Examination: Limited Echo Indication: Follow up pericardial tap Image Quality: Contrast: Requested by: Addison Hahn BP: 97 mmHg/53 mmHg Heart Rate: Rhythm: Indication: Follow up pericardial tap Procedure Staff Brine Process Operator: Vin Coffey RDCS Reading Physician: Stephanie Saravia MD Requesting Provider: Conclusions: This is a limited echo to evaluate the pericardium post pericardiocentisis. There is a trivial effusion with no evidence of RA or RV collapse. . Measurements: Chambers Valvular Assessment AV/MV Valvular Assessment TV/PV Normal Normal Normal Name Value Range Name Value Range Name Value Range Continued Measurements: Findings: Exam Comments: This is a limited echo to evaluate the pericardium post pericardiocentisis. There is a trivial effusion with no evidence of RA or RV collapse. . (No Signature Object) Patient: MO MCKINLEY Study Date: 07/04/2018 Page 1 of 1 09:35 AM [id number]
[2018-07-06] MEDS: ATORVASTATIN CALCIUM 40 MG TAB PO SCH (09:24)
--- NOTE | 2018-07-06 09:46 | ECHO ---
[email or web address] [place] [id number] Main: [phone] Fax: Transthoracic Echocardiogram Name: MO MCKINLEY MR#: [id number] Study Date: 07/06/2018 Study Time: 09:11 AM Date of : 1945 Age: 72 year(s) Height: 182.9 cm (72 in.) Weight: 73.48 kg (162 lb.) BSA: 1.95 m2 Gender: Male Examination: Limited Echo Indication: Eval pericardial effusion Image Quality: Contrast: Requested by: Dionisio Manrique BP: 115 mmHg/60 mmHg Heart Rate: Rhythm: Indication: Eval pericardial effusion Procedure Staff Explosive Operator Fuse: Jasmyne Pop RDCS Reading Physician: Stephanie Saravia MD Requesting Provider: Conclusions: Trivial pericardial effusion. Left side pleural effusion. Appearance of pericardial effusion is similar compared with post pericardiocentesis study Measurements: Chambers Valvular Assessment AV/MV Valvular Assessment TV/PV Normal Normal Normal Name Value Range Name Value Range Name Value Range Continued Measurements: Findings: Pericardium: Trivial pericardial effusion. Left side pleural effusion. (No Signature Object) Patient: MO MCKINLEY Study Date: 07/06/2018 Page 1 of 1 09:11 AM [id number]
--- NOTE | 2018-07-06 13:09 | PDCARPN ---
Cardiology Progress Note Assessment/Plan: Assessment: 1. Pericarditis 2. Moderate Pericardial effusion with evidence hemodynamic compromise and evidence of tamponade physiology 3. Pleuritic chest pain 4. Acute Renal Failure requriing HD, creatinine 2.3 this morning. 5. 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 6. CML 7. Chronic Anticoagulation 8. 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 If further paroxysm of AFib will start low-dose metoprolol tartrate at 12.5 mg p.o. B.i.d. -await Renal recommendations if further dialysis is required -will continue to follow 07/05/18 10:48 07/06/18 13:07 Subjective: Mr. Looney is doing well this AM. He has experience further episodes of paroxysmal atrial fibrillation. He was started on short-acting diltiazem last night. He is currently in sinus rhythm. He did receive transfusion of packed red blood cells yesterday. Blood pressure has significantly improved after transfusion. Creatinine of 2.3. Creatinine yesterday of 2.0. He has not had dialysis in 48 hr. Limited echocardiogram performed this morning demonstrates trace pericardial effusion with normal left ventricular function. No hemodynamic compromise. Objective: Vital Signs (8 Hrs) Temp Pulse Resp BP Pulse Ox 07/06/18 11:02 36.3 C 74 16 132/58 H 93 07/06/18 07:45 36.6 C 83 10 L 115/60 92 Intake/Output (24 Hrs) 07/05/18 07/06/18 07/07/18 05:59 05:59 05:59 Intake Total 746.5 1100 Output Total 270 625 600 Balance 476.5 475 -600 Intake: Oral (ml) 700 1100 IV Infused (ml) 46.5 Heparin/Dextrose 500 ml @ 46.5 Per Protocol IV CONT TOLU Rx#:[id number] Output: Urine (ml) 270 625 600 Catheter 270 100 Urinal 525 600 Other: Weight 71.622 kg 72.6 kg Number of Voids Urinal 1 Number of Stools Catheter 0 Urinal 1 Post Void Residual Scan Volume (ml) Urinal 45 Result Diagrams: 07/06/18 04:14 07/06/18 04:14 - Physical Exam Neurologic: AAOx3, CN II-XII grossly intact Psychiatric: cooperative, interactive ICD10 Worksheet Patient Problems: Problems Problem Status Onset Shortness of breath Acute Substernal chest pain Acute Hypoxia Acute Peripheral vascular disease Acute Pneumonia Acute Vascular insufficiency of extremity Acute chronic disease mgmt/ transitional care Acute
--- NOTE | 2018-07-06 15:06 | SOAPPROG ---
SOAP Progress Note Assessment/Plan: Assessment/Plan: 72 yo gentleman w CML admitted w SOB and chest pain 1. Shortness of breath and chest pain - pt w cardiac tamponade due to significant pericardial effusion and acute renal failure s/p pericardial drain, PRBCs, hemodialysis, and treatment of paroxysmal afib SOB stable on O2 2. pericardial effusion - likely due to ARF and bosutinib Echo improved today 3. Paroxysmal Afib - appreciate cardiology agree favor anticoagulation 4. ARF - s/p dialysis for acidosis and hyperkalemia improved UOP monitor off HD appreciate renal 5. CML - toxicities to multiple previous therapies hold bosutinib consider other therapies after d/c 6. anemia - multifactorial iron studies do not shows sig iron deficiency may benefit from epo as outpt Subjective: No acute events up walking halls Objective: Vital Signs Temp Pulse Resp BP Pulse Ox 36.3 C 74 16 132/58 H 92 07/06/18 11:02 07/06/18 11:02 07/06/18 11:02 07/06/18 11:02 07/06/18 11:50 Microbiology 07/03/18 22:25 Urine Culture - Final Urine,Clean Catch Laboratory Results 07/06/18 04:14 07/06/18 04:14 07/05/18 07/06/18 07/07/18 05:59 05:59 05:59 Intake Total 746.5 1100 Output Total 270 625 600 Balance 476.5 475 -600 PT 18.0 SEC (12.0-15.0) H 07/04/18 15:45 INR 1.47 (0.83-1.16) H 07/04/18 15:45 pt up walking not examined ICD10 Worksheet Patient Problems: Problems Problem Status Onset Shortness of breath Acute Substernal chest pain Acute Hypoxia Acute Peripheral vascular disease Acute Pneumonia Acute Vascular insufficiency of extremity Acute chronic disease mgmt/ transitional care Acute
--- NOTE | 2018-07-06 16:06 | SOAPPROG ---
SOAP Progress Note Assessment/Plan: Assessment/Plan: IKER: direct chemo toxicity vs ischemic ATN from hypotension. Pt had prerenal urinary indices. Pt had HD on /Fri/Friday, no HD done since then. Cr came down to 2.0 after last HD, today is up to 2.3, rising but rate is low, and UOP now improving. - No need for HD today. - Will continue to monitor daily for HD needs and renal recovery, may not require further dialysis. - Avoid hypotension and nephrotoxins. Hyperkalemia: resolved with HD, will continue to monitor. Anemia: Hgb 8.7, no need for epo, will monitor. Subjective: No acute events overnight. Pt notes that swelling in legs is improved, still has swollen genitalia. He feels his breathing is improving, feels "rattly" at night. He is having more UOP today. Objective: Vital Signs Temp Pulse Resp BP Pulse Ox 36.3 C 74 16 132/58 H 92 07/06/18 11:02 07/06/18 11:02 07/06/18 11:02 07/06/18 11:02 07/06/18 11:50 Microbiology 07/03/18 22:25 Urine Culture - Final Urine,Clean Catch Laboratory Results 07/06/18 04:14 07/06/18 04:14 07/05/18 07/06/18 07/07/18 05:59 05:59 05:59 Intake Total 746.5 1100 Output Total 270 625 600 Balance 476.5 475 -600 PT 18.0 SEC (12.0-15.0) H 07/04/18 15:45 INR 1.47 (0.83-1.16) H 07/04/18 15:45 General: alert and oriented, no acute distress Eyes; EOMI, PERRL OP: Clear CV; RRR Resp: nonlabored respirations on NC Abd: Soft, NT Ext: trace edema BLE Neuro: CN II-XII Grossly intact, no asterixis Psych; Cooperative Access: RIJ temp catheter ICD10 Worksheet Patient Problems: Problems Problem Status Onset Shortness of breath Acute Substernal chest pain Acute Hypoxia Acute Peripheral vascular disease Acute Pneumonia Acute Vascular insufficiency of extremity Acute chronic disease mgmt/ transitional care Acute
--- NOTE | 2018-07-06 16:10 | HOSPPROG ---
Hospitalist Progress Note Assessment/Plan: DIAGNOSES: * acute hypotension from pericardial tamponade * acute pericarditis and effusion likely caused by cancer therapy * acute renal failure requiring urgent hemodialysis from cancer therapy * syncope due to above * electrolyte disorders due to the renal disease * acute on chronic anemia due to cancer, cancer therapy, other issues as above * 1 unit of red cells transfused so far this admission * CML treated with bosutunib * chronic AFib on chronic anticoagulation for that, held due to severe anemia I reviewed in detail today with Dr. Jeronimo Manrique Seen by me today on hospitals rounds as well as multidisciplinary rounds PLANS: * Stop diltiazem at this time * Resume heparin drip at this time, monitor closely * Follow blood counts closely * Continue cardiac monitoring for AFib * follow renal fxn, lytes closely * I have added acapella flutter device for cough seen by me today on hospitalist rounds and multidisc rounds I reviewed in detail with Dr Manrique today SUBJECTIVE: feeling better less cough more energy has now had bowel movement still having pleuritic pain of pericardium OBJECTIVE Vitals reviewed: Stable without fever Stock Blender, my review: Sinus rhythm Exam: alert oriented skin warm dry color ok resps not labored lungs clear BSs heart regular abd soft nondistended nontender, bowel sounds present limbs warm, no edema iv site ok Laboratory data: Stable numbness on CBC Creatinine slightly up today at 2.3 from yesterday, potassium and bicarb good Echocardiogram: repeat study today showing L pleural effusion, no reaccumulation of pericardial fluid, trivial now Objective: Vital Signs Temp Pulse Resp BP Pulse Ox 36.3 C 74 16 132/58 H 92 07/06/18 11:02 07/06/18 11:02 07/06/18 11:02 07/06/18 11:02 07/06/18 11:50 Microbiology 07/03/18 22:25 Urine Culture - Final Urine,Clean Catch Laboratory Results 07/06/18 04:14 07/06/18 04:14 07/05/18 07/06/18 07/07/18 06:59 06:59 06:59 Intake Total 746.5 1100 Output Total 270 625 600 Balance 476.5 475 -600 PT 18.0 SEC (12.0-15.0) H 07/04/18 15:45 INR 1.47 (0.83-1.16) H 07/04/18 15:45 - Time Spent With Patient Time Spent with Patient: greater than 35 minutes Time Spent with Patient: Greater than 35 minutes spent on this patients care, greater than 50% of time spent counseling, educating, and coordinating care regarding the above mentioned plan. ICD10 Worksheet Patient Problems: Problems Problem Status Onset Shortness of breath Acute Substernal chest pain Acute Hypoxia Acute Peripheral vascular disease Acute Pneumonia Acute Vascular insufficiency of extremity Acute chronic disease mgmt/ transitional care Acute
[2018-07-06] MEDS: HEPARIN/DEXTROSE 500 ML IV SCH (18:22)
[2018-07-06 18:46] LABS: PLATELET COUNT 335 10^3/uL (150-400)
[2018-07-06 18:56] LABS: INR 1.17 (0.83-1.16); PROTIME(PATIENT) 15.1 SEC (12.0-15.0)
[2018-07-06] MEDS: guaiFENesin 600 MG TAB.ER PO SCH (21:34)
[2018-07-06] MEDS: BENZONATATE 100 MG CAP PO PRN (21:35)
[2018-07-07] MEDS: HEPARIN 10,000 UNIT/10 ML MDV (1,000 UNIT/ML) IVP PRN (00:30)
[2018-07-07] MEDS: ATORVASTATIN CALCIUM 40 MG TAB PO SCH (08:21)
[2018-07-07] MEDS: guaiFENesin 600 MG TAB.ER PO SCH ×2 (08:21→21:02)
--- NOTE | 2018-07-07 10:26 | SOAPPROG ---
SOAP Progress Note Assessment/Plan: Assessment/Plan: IKER: direct chemo toxicity vs ischemic ATN from hypotension. Pt had prerenal urinary indices. Pt had HD on /Fri/Friday, no HD done since then. Cr came down to 2.0 after last HD, yesterday was up to 2.3, and now today is down to 1.8. Pt is having good UOP and lytes ok. - No need for HD today. - Will continue to monitor daily for HD needs and renal recovery, may not require further dialysis. - If Cr continues to trend down, may be able to remove dialysis catheter tomorrow. - Avoid hypotension and nephrotoxins. Hyperkalemia: resolved with HD, will continue to monitor. Anemia: Hgb 8.8, no need for epo, will monitor. Subjective: No acute events overnight. Pt notes large UOP yesterday, breathing comfortably , no palpitations. Objective: Vital Signs Temp Pulse Resp BP Pulse Ox 36.6 C 71 22 H 137/58 H 91 L 07/07/18 07:46 07/07/18 07:46 07/07/18 07:46 07/07/18 07:46 07/07/18 07:46 Microbiology 07/03/18 22:25 Urine Culture - Final Urine,Clean Catch Laboratory Results 07/06/18 18:30 07/07/18 06:39 07/06/18 07/07/18 07/08/18 05:59 05:59 05:59 Intake Total 1100 830 Output Total 625 2050 575 Balance 475 -1220 -575 PT 15.1 SEC (12.0-15.0) H 07/06/18 18:30 INR 1.17 (0.83-1.16) H 07/06/18 18:30 General: alert and oriented, no acute distress Eyes: EOMI, pERRL oP: Clear Cv: RRR Resp: nonlabored respirations on NC Abd: Soft, NT Ext: no edema BLE Neuro: CN II-XII grossly intact, no asterixis Psych: cooperative Access: RIJ temp catheter ICD10 Worksheet Patient Problems: Problems Problem Status Onset Shortness of breath Acute Substernal chest pain Acute Hypoxia Acute Peripheral vascular disease Acute Pneumonia Acute Vascular insufficiency of extremity Acute chronic disease mgmt/ transitional care Acute
[2018-07-07] MEDS: HEPARIN/DEXTROSE 500 ML IV SCH (11:32)
--- NOTE | 2018-07-07 15:10 | SOAPPROG ---
SOAP Progress Note Assessment/Plan: Assessment/Plan: 72 yo gentleman w CML admitted w SOB and chest pain 1. Shortness of breath and chest pain - pt w cardiac tamponade due to significant pericardial effusion and acute renal failure s/p pericardial drain, PRBCs, hemodialysis, and treatment of paroxysmal afib SOB stable on O2 2. pericardial effusion - likely due to ARF and bosutinib repeat Echo 07/06 improved 3. Paroxysmal Afib - appreciate cardiology agree favor anticoagulation - on heparin 4. ARF - s/p dialysis for acidosis and hyperkalemia improved UOP; Cr better monitor off HD appreciate renal recs 5. CML - toxicities to multiple previous therapies hold bosutinib consider other therapies after d/c; can d/w Dr Schaeffer 6. anemia - multifactorial iron studies do not shows sig iron deficiency may benefit from epo as outpt 07/07/18 15:06 07/07/18 15:07 07/07/18 15:07 Subjective: No acute events feeling better Objective: Vital Signs Temp Pulse Resp BP Pulse Ox 36.9 C 96 20 128/65 H 96 07/07/18 12:00 07/07/18 14:41 07/07/18 14:41 07/07/18 12:00 07/07/18 14:41 Microbiology 07/03/18 22:25 Urine Culture - Final Urine,Clean Catch Laboratory Results 07/06/18 18:30 07/07/18 06:39 07/06/18 07/07/18 07/08/18 05:59 05:59 05:59 Intake Total 1100 830 240 Output Total 625 2050 925 Balance 475 -1220 -685 PT 15.1 SEC (12.0-15.0) H 07/06/18 18:30 INR 1.17 (0.83-1.16) H 07/06/18 18:30 Gen - NAD HEENT - anicteric; O2 via NC CV - tele shows sinus rhythm but has occasional irregular beats Resp - mild crackles bilaterally ext - no sig edema ICD10 Worksheet Patient Problems: Problems Problem Status Onset Shortness of breath Acute Substernal chest pain Acute Hypoxia Acute Peripheral vascular disease Acute Pneumonia Acute Vascular insufficiency of extremity Acute chronic disease mgmt/ transitional care Acute
--- NOTE | 2018-07-07 18:28 | HOSPPROG ---
Hospitalist Progress Note Assessment/Plan: DIAGNOSES: * acute hypotension from pericardial tamponade * acute pericarditis and effusion likely caused by cancer therapy * acute renal failure requiring urgent hemodialysis from cancer therapy * syncope due to above * electrolyte disorders due to the renal disease * acute on chronic anemia due to cancer, cancer therapy, other issues as above * 1 unit of red cells transfused so far this admission * CML treated with bosutunib * chronic AFib on chronic anticoagulation for that, held due to severe anemia PLANS: * Recheck renal function in the morning if it continues to improve consider removal of dialysis catheter * heparin drip at this time, monitor closely; once dialysis catheter out and is clear that no other procedures are needed, can switch back to Eliquis * Follow blood counts closely * Continue cardiac monitoring for AFib * I have added acapella flutter device for cough * Continue physical occupational therapy seen by me today on hospitalist rounds and multidisc rounds SUBJECTIVE: feeling better less cough more energy has now had bowel movement still having pleuritic pain of pericardium but is notably improving daily the last 2 days and not bothering him much OBJECTIVE Vitals reviewed: Stable without fever Veterinarian, my review: Sinus rhythm Exam: alert oriented skin warm dry color ok resps not labored lungs clear BSs heart regular abd soft nondistended nontender, bowel sounds present limbs warm, no edema iv site ok Laboratory data: Creatinine down to 1.8, lytes and acid-base stable Echocardiogram: repeat study 07/06 showing L pleural effusion, no reaccumulation of pericardial fluid, trivial now Objective: Vital Signs Temp Pulse Resp BP Pulse Ox 37.1 C 99 12 117/63 98 07/07/18 16:00 07/07/18 16:00 07/07/18 16:00 07/07/18 16:00 07/07/18 16:00 Laboratory Results 07/06/18 18:30 07/07/18 06:39 07/06/18 07/07/18 07/08/18 06:59 06:59 06:59 Intake Total 0504 504 3417 Output Total 625 2250 1275 Balance 475 -1420 1010 PT 15.1 SEC (12.0-15.0) H 07/06/18 18:30 INR 1.17 (0.83-1.16) H 07/06/18 18:30 ICD10 Worksheet Patient Problems: Problems Problem Status Onset Shortness of breath Acute Substernal chest pain Acute Hypoxia Acute Peripheral vascular disease Acute Pneumonia Acute Vascular insufficiency of extremity Acute chronic disease mgmt/ transitional care Acute
--- NOTE | 2018-07-07 18:47 | PDCARPN ---
Cardiology Progress Note Assessment/Plan: Pericarditis: He presented with a significant pericardial effusion which increased in size over the course of his first hospital day. He underwent pericardiocentesis on 07/03. Limited echo yesterday showed no reaccumulation of pericardial fluid. Colchicine and NSAIDs are contraindicated in the setting of his acute renal insufficiency. - Will monitor for recurrence of his pericardial effusion as an outpatient. Paroxysmal Atrial fibrillation: This is a new issue as of this hospitalization. He developed atrial fibrillation on 07/04. He spontaneously returned to normal sinus rhythm. His atrial fibrillation recurred this a.m. around 8:00. His heart rate has been in the 80s to 90s throughout the day. - Will start low-dose metoprolol succinate. - His Eliquis will be resumed once his temporary dialysis catheter has been pulled. Coronary Atherosclerosis: He had a CT coronary calcium score of 359 in 2011 consistent with a minimal plaque burden. He has no symptoms suggestive of angina. At the time of his admission, he had prolonged chest pain and ST segment elevation with an appearance of early repolarization. Cardiac catheterization was deferred because an ischemic process was not suspected and he was in acute renal failure. He ruled out for ACS/DC. 07/07/18 18:46 Subjective: No complaints. Reviewed/Discussed With: family Objective: Vital Signs (8 Hrs) Temp Pulse Resp BP Pulse Ox 07/07/18 16:00 37.1 C 99 12 117/63 98 07/07/18 14:41 96 20 96 07/07/18 12:00 36.9 C 94 18 128/65 H 97 Intake/Output (24 Hrs) 07/06/18 07/07/18 07/08/18 05:59 05:59 05:59 Intake Total 5044 827 2879 Output Total 625 2050 1475 Balance 475 -1220 810 Intake: Oral (ml) 0877 351 1384 IV Infused (ml) 330 665 Heparin/Dextrose 500 ml @ 330 Per Protocol IV CONT TOLU Rx#:[id number] Heparin/Dextrose 500 ml @ 665 Per Protocol IV CONT TOLU Rx#:[id number] Output: Urine (ml) 625 2050 1475 Catheter 100 Urinal 525 2050 1475 Other: Weight 72.6 kg 72.7 kg Number of Voids Urinal 1 1 Number of Stools Urinal 1 Post Void Residual Scan Volume (ml) Urinal 45 Result Diagrams: 07/06/18 18:30 07/07/18 06:39 - Physical Exam Constitutional: no apparent distress Eyes: anicteric sclera Ears, Nose, Mouth, Throat: moist mucous membranes Cardiovascular: no murmurs, irregularly irregular Respiratory: clear to auscultate bilat Gastrointestinal: normoactive bowel sounds, no tenderness, no masses Skin: no rashes, no edema Neurologic: AAOx3 Psychiatric: not anxious ICD10 Worksheet Patient Problems: Problems Problem Status Onset Shortness of breath Acute Substernal chest pain Acute Hypoxia Acute Peripheral vascular disease Acute Pneumonia Acute Vascular insufficiency of extremity Acute chronic disease mgmt/ transitional care Acute
[2018-07-08] MEDS: HEPARIN 10,000 UNIT/10 ML MDV (1,000 UNIT/ML) IVP PRN ×2 (05:18→21:31)
[2018-07-08] MEDS: HEPARIN/DEXTROSE 500 ML IV SCH ×2 (05:19→20:13)
[2018-07-08] MEDS: guaiFENesin 600 MG TAB.ER PO SCH ×2 (07:49→20:13)
[2018-07-08] MEDS: ATORVASTATIN CALCIUM 40 MG TAB PO SCH (07:50)
[2018-07-08] MEDS: METOPROLOL SUCCINATE XR 25 MG TAB PO SCH (07:50)
--- NOTE | 2018-07-08 13:38 | HOSPPROG ---
Hospitalist Progress Note Assessment/Plan: 72 yo male with hx of CAD, PVD, CML (on Bosutinib), chronic AC admitted with CP initially presumed STEMI and ARF. Negative troponin. TTE reveal pericardial effusion. #Pericarditis and Moderate Pericardial effusion -s/p pericardiocentesis on 07/03 -Cards is following -repeat TTE does not show reaccumulation -Etiology likely Bosutinib #Syncope on 07/02 -Etiology likely multifactorial #Abnormal EKG, ST elevation, felt not to be STEMI #Pleuritic chest pain, resolved #Acute Renal Failure with studies c/w prerenal etiology -Urgent HD required on 07/02. Had HD x 3 days. No HD planned today -Cr and urine output cont to improve. 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 #chronic AC -Holding home Apixaban #CML -Holding Bosutinib which is likely the offending agent -Onc is following #Acute on chronic Anemia, s/p PRBC transfusion #Afib: cont Metoprolol which was started during this hospitalization #Weakness and Deconditioning #Pedal Edema Plan: -Need for further HD per Renal. May have catheter removed soon -Monitor volume status closely. He has developed some pedal edema and likely pulm vasc congestion and cough. -Heparin currently. Can change to Eliquis once catheter is removed. Currently holding Aspirin -PT/OT -dispo: cont inpatient, can hopefully transition to d/c soon. Subjective: no cp or sob. no n/v. afebrile Objective: Vital Signs Temp Pulse Resp BP Pulse Ox 36.6 C 74 20 147/77 H 95 07/08/18 12:00 07/08/18 12:00 07/08/18 12:00 07/08/18 12:00 07/08/18 12:00 Laboratory Results 07/06/18 18:30 07/08/18 03:57 07/07/18 07/08/18 07/09/18 05:59 05:59 05:59 Intake Total 830 2785 Output Total 2050 2925 575 Balance -1220 -140 -575 PT 15.1 SEC (12.0-15.0) H 11/26/18 18:30 INR 1.17 (0.83-1.16) H 07/06/18 18:30 - Physical Exam Constitutional: no apparent distress Eyes: PERRL Ears, Nose, Mouth, Throat: moist mucous membranes, hearing normal Cardiovascular: regular rate and rhythym, edema Respiratory: no respiratory distress, reduced air movement Gastrointestinal: normoactive bowel sounds, soft, non-tender abdomen Skin: warm Neurologic: AAOx3 Psychiatric: interacting appropriately, not anxious, not encephalopathic Lymph, Heme, Immunologic: No petechiae ICD10 Worksheet Patient Problems: Problems Problem Status Onset Shortness of breath Acute Substernal chest pain Acute Hypoxia Acute Peripheral vascular disease Acute Pneumonia Acute Vascular insufficiency of extremity Acute chronic disease mgmt/ transitional care Acute
--- NOTE | 2018-07-08 14:51 | SOAPPROG ---
SOAP Progress Note Assessment/Plan: Assessment: 1. arf: direct chemo toxicity vs ischemic atn from hypotension, I suspect the latter. Prerenal urinary indices, repeat UA completely bland. Hd 3 consecutive days, now recovering with rapidly dropping creat and great uo. Can d/c hd cath. Discussed outpt renal f/u, since his creat has already nearly returned to normal and he has regular lab f/u with Heme/Onc I don't feel he need to f/u with us at this time. I anticipate his creat will return to his previous b/l, though it could take a few weeks. 2. hyperK: resolved with hd 3. pericardial effusion: s/p drainage. 4. hypotension: resolved post-pericardiocentesis. 5. edema: this sounds like a chronic issue for him, likely exacerbated by ivf here. Expect it to improve spontaneously as arf resolves but could diurese if desired. will sign off. Plan: 07/04/18 20:47 07/05/18 17:49 07/08/18 14:49 07/08/18 14:51 07/08/18 14:52 Subjective: Up in chair, no particular c/o aside from LE edema. Anxious to get hd cath out. Objective: Vital Signs Temp Pulse Resp BP Pulse Ox 36.6 C 74 20 147/77 H 95 07/08/18 12:00 07/08/18 12:00 07/08/18 12:00 07/08/18 12:00 07/08/18 12:00 Laboratory Results 07/06/18 18:30 07/08/18 03:57 07/07/18 07/08/18 07/09/18 05:59 05:59 05:59 Intake Total 830 2785 Output Total 2410 3687 575 Balance -1220 -140 -575 PT 15.1 SEC (12.0-15.0) H 07/06/18 18:30 INR 1.17 (0.83-1.16) H 07/06/18 18:30 Physical Exam - Physical Exam General Appearance: no apparent distress Respiratory: decreased breath sounds (at bases) Cardiac/Chest: regular rate, rhythm Abdomen: soft Extremities: swelling (LE/dependent ) ICD10 Worksheet Patient Problems: Problems Problem Status Onset Shortness of breath Acute Substernal chest pain Acute Hypoxia Acute Peripheral vascular disease Acute Pneumonia Acute Vascular insufficiency of extremity Acute chronic disease mgmt/ transitional care Acute
--- NOTE | 2018-07-08 15:32 | PDCARPN ---
Cardiology Progress Note Assessment/Plan: Pericarditis: He presented with a significant pericardial effusion which increased in size over the course of his first hospital day. He underwent pericardiocentesis on 07/03. Limited echo 07/06 showed no reaccumulation of pericardial fluid. Colchicine and NSAIDs are contraindicated in the setting of his acute renal insufficiency. His pericarditis was deemed to be a side-effect from Bosutinib. - Will monitor for recurrence of his pericardial effusion as an outpatient. Paroxysmal Atrial fibrillation: This is a new issue as of this hospitalization. He developed atrial fibrillation on 07/04. He spontaneously returned to normal sinus rhythm. His atrial fibrillation recurred yesterday a.m. with ventricular rates in the 80s to 90s. He is back in sinus rhythm today. - Continue low-dose metoprolol succinate. - His Eliquis will be resumed once his temporary dialysis catheter has been pulled. Coronary Atherosclerosis: He had a CT coronary calcium score of 359 in 2011 consistent with a minimal plaque burden. He has no symptoms suggestive of angina. At the time of his admission, he had prolonged chest pain and ST segment elevation with an appearance of early repolarization. Cardiac catheterization was deferred because an ischemic process was not suspected and he was in acute renal failure. He ruled out for ACS/NV. Disposition: Stable for discharge from cardiovascular standpoint. Will sign off. - The office staff of [facility] has been instructed to contact him to arrange for a followup appointment with Dr. Manrique. 07/08/18 15:26 Subjective: No complaints. Reviewed/Discussed With: family Objective: Vital Signs (8 Hrs) Temp Pulse Resp BP Pulse Ox 07/08/18 15:03 36.7 C 72 7 L 122/61 H 96 07/08/18 12:00 36.6 C 74 20 147/77 H 95 07/08/18 07:54 36.5 C 80 16 126/65 H 93 Intake/Output (24 Hrs) 07/07/18 07/08/18 07/09/18 05:59 05:59 05:59 Intake Total 830 2785 Output Total 2050 2925 575 Balance -1220 140 -813 Intake: Oral (ml) 500 2120 IV Infused (ml) 330 665 Heparin/Dextrose 500 ml @ 330 Per Protocol IV CONT TOLU Rx#:[id number] Heparin/Dextrose 500 ml @ 665 Per Protocol IV CONT TOLU Rx#:[id number] Output: Urine (ml) 2049 2925 575 Urinal 2049 2925 575 Other: Weight 72.7 kg 73 kg Number of Voids Urinal 1 1 1 Number of Stools Urinal 1 Post Void Residual Scan Volume (ml) Urinal 45 Result Diagrams: 07/06/18 18:30 07/08/18 03:57 - Physical Exam Constitutional: no apparent distress Eyes: anicteric sclera Ears, Nose, Mouth, Throat: moist mucous membranes Cardiovascular: regular rate and rhythm, no murmurs, no rubs Respiratory: clear to auscultate bilat Gastrointestinal: normoactive bowel sounds, no tenderness, no masses Skin: no edema Neurologic: AAOx3 Psychiatric: not anxious ICD10 Worksheet Patient Problems: Problems Problem Status Onset Shortness of breath Acute Substernal chest pain Acute chronic disease mgmt/ transitional care Acute Peripheral vascular disease Acute Vascular insufficiency of extremity Acute Pneumonia Acute Hypoxia Acute
--- NOTE | 2018-07-08 15:35 | ASMTCMCOM ---
CM Note CM Note Notes: 07/08/2018 Case Management Note Discussed pt during rounds. Anticipating d/c late in the week. PT has cleared pt to return home without services. Pt in agreement. Case Management d/c poc: independent with follow up as directed. Case Management available if needs change. Date Signed: 07/08/2018 03:34 PM Electronically Signed By:Polly Hoffman RN
[2018-07-09] MEDS: guaiFENesin 600 MG TAB.ER PO SCH (08:40)
[2018-07-09] MEDS: METOPROLOL SUCCINATE XR 25 MG TAB PO SCH (08:40)
[2018-07-09] MEDS: ATORVASTATIN CALCIUM 40 MG TAB PO SCH (08:40)
[2018-07-09] MEDS ORDERED: FUROSEMIDE 20 MG TAB PO ONE (10:45)
[2018-07-09] MEDS: HEPARIN/DEXTROSE 500 ML IV SCH (11:19)
--- NOTE | 2018-07-09 11:42 | PDHOMEO2F ---
Home Oxygen Face to Face Home Orders: I certify that a physician or a nurse practitioner or physician's it administrative assistant has had a [id number] encounter with this patient on the date of this order due to the diagnosis listed, which relates to the primary reason the patient requires home oxygen. Alternative treatments have been tried, or considered, and deemed ineffective. It is anticipated that supplemental oxygen will result in improvement with treatment. Home oxygen qualifying diagnosis: CHF, Pleural Effussion, pericardial effusion SpO2 on room air (%): 87 Frequency of home oxygen needed: continuous Home oxygen liters per minute: 2 Home oxygen delivery device: nasal cannula Concentrator: Yes E-tanks for mobility and back up: Yes If ordering portable O2, is the patient mobile in the home?: Yes I certify that, based on these findings, the home oxygen is medically necessary for this patient for the following length of time. Length of time home oxygen needed: 99 years
[2018-07-09 12:06] VITALS: BP 117/68
--- NOTE | 2018-07-09 13:19 | PDDCSUM ---
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 Negative troponin. TTE reveal pericardial effusion. He had significant pericardial effusion which increased in size over the course of his first hospital day. He underwent pericardiocentesis on 07/03. Limited echo 07/06 showed no reaccumulation of pericardial fluid. Colchicine and NSAIDs are contraindicated in the setting of his acute renal insufficiency. His pericarditis was deemed to be a side-effect from Bosutinib. He does not have any e/o recurrence. Cardiology will monitor for recurrence of his pericardial effusion as an outpatient. Hospitalization was further complicated by new onset Afib. He developed atrial fibrillation on 07/04 and was started on Metoprolol. AC was continued and now has been switched to Apixaban. He required urgent dialysis x 3 days. Hyperkalemia and Hypermagnesemia have resolved. He is urinating freely w/o difficulty. HD catheter was removed on the day prior to discharge. He does not need any fu with nephrology. Cr. is down to 1.1 on discharge. He has f/u with Dr. Seferino Golden on Jul 12 (this is from previous hospitalization) He has f/u with Dr. Bell on Jul 30 He will f/u with Cardiology, Dr. Manrique DDX: #Pericarditis and Moderate Pericardial effusion -s/p pericardiocentesis on 07/03 -repeat TTE does not show reaccumulation -Etiology likely Bosutinib #Syncope on 07/02 -Etiology likely multifactorial #Abnormal EKG, ST elevation, felt not to be STEMI #Pleuritic chest pain, resolved #Acute Renal Failure: resolved -Urgent HD required on 07/02. Had HD x 3 days. 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 #chronic AC -restart Apixaban #CML -Holding Bosutinib which is likely the offending agent -Onc is following. Pt will d/w at follow up #Acute on chronic Anemia, s/p PRBC transfusion. Hgb is stable on d/c #Afib: cont Metoprolol which was started during this hospitalization. This is a new diagnosis #Weakness and Deconditioning: now back to baseline. #Pedal Edema: persists. At the time of d/c he will get Lasix x 1. This will likely need f/u in op setting if he does not auto diurese Exam: NAD AAOX3 RRR DECREASED LUNGS SOUNDS S/NT/ND MEDS: SEE MED REC F/U: PER ABOVE TOTAL TIME SPENT ON D/C IS 45 MINS. D/W CARDIOLOGY, CM, NURSING.
== END 2018-07-09 15:40 | disposition home or self-care (01) | DRG 315 ==
LOC: INTOOBSV 19:38 → F2W 21:23 → OBSVTOIN 07-03 14:31
PROVIDERS: ADMIT Internal Medicine; ATTEND Family Medicine
PROC: 5A1D70Z Performance of Urinary Filtration, Intermittent, Less than 6 Hours Per Day (ICD-10-PCS; principal; 2018-07-02)
PROC: 02HV33Z Insertion of Infusion Device into Superior Vena Cava, Percutaneous Approach (ICD-10-PCS; 2018-07-02)
PROC: 0W9D3ZZ Drainage of Pericardial Cavity, Percutaneous Approach (ICD-10-PCS; 2018-07-03)
PROC: 30233N1 Transfusion of Nonautologous Red Blood Cells into Peripheral Vein, Percutaneous Approach (ICD-10-PCS; 2018-07-05)
DX: I31.9 Disease of pericardium, unspecified (principal); I31.4 Cardiac tamponade; I25.10 Atherosclerotic heart disease of native coronary artery without angina pectoris; C91.10 Chronic lymphocytic leukemia of B-cell type not having achieved remission; N17.9 Acute kidney failure, unspecified; E87.5 Hyperkalemia; T45.1X5A Adverse effect of antineoplastic and immunosuppressive drugs, initial encounter; R94.31 Abnormal electrocardiogram [ECG] [EKG]; I12.9 Hypertensive chronic kidney disease with stage 1 through stage 4 chronic kidney disease, or unspecified chronic kidney disease; N18.3 Chronic kidney disease, stage 3 (moderate); R55 Syncope and collapse; I48.0 Paroxysmal atrial fibrillation; I73.9 Peripheral vascular disease, unspecified; D64.81 Anemia due to antineoplastic chemotherapy; E83.41 Hypermagnesemia; D63.0 Anemia in neoplastic disease; Z95.828 Presence of other vascular implants and grafts; Z79.01 Long term (current) use of anticoagulants; Z79.899 Other long term (current) drug therapy; Z79.82 Long term (current) use of aspirin
CPT/HCPCS: 82607-90; 84484-PO; 85520-90; 86705-90; 97161-GP; G0378; G0472; G8978-GP-CI; G8979-GP-CI; G8980-GP-CI; J0610; J1642; J1644; J1815; J2250; J2405; J3010; P9016; Q9967

== ENCOUNTER → 2018-07-20 | Outpatient (CLI) | payer OTHER, MEDICARE ==
[~2018-07-20] MED LIST changes: -IOPAMIDOL (ISOVUE 370) 100 ML BTL IV ONE; +IOPAMIDOL (ISOVUE-300) 100 ML BTL ONE
== END ==
LOC: FIMAGING 14:41
PROVIDERS: ATTEND Internal Medicine Pulmonary Disease
DX: J15.9 Unspecified bacterial pneumonia (principal); I31.3 Pericardial effusion (noninflammatory); J98.11 Atelectasis
CPT/HCPCS: 71260; Q9967

== ENCOUNTER → 2018-09-07 | Outpatient (CLI) | payer OTHER, MEDICARE | LOC: BHFA 11:30 | PROVIDERS: ATTEND Internal Medicine Cardiovascular Disease | DX: Z51.11 Encounter for antineoplastic chemotherapy (principal); R06.02 Shortness of breath ==

== ENCOUNTER 2018-10-10 12:19 | Observation (INO) | payer OTHER, MEDICARE ==
--- NOTE | 2018-10-10 12:42 | EDPHY ---
H & P Time Seen by Provider: 10/10/18 12:42 HPI/ROS: CHIEF COMPLAINT: Dizzy near-syncope HISTORY OF PRESENT ILLNESS: 72-year-old man arrives after having almost fainted at home. He says for the past 2 days he has had cold symptoms which she describes as congestion and a snotty nose and a sore throat and a little bit of a cough. Today he was standing in the kitchen cooking soup when he got sweaty felt weak dizzy and thought he was going to pass out. He went and got his home blood pressure machine and got a reading of 68/51 with a heart rate of eventually 77. He did not have visual symptoms or headache or vertigo, no chest pain or shortness of breath. Symptoms eventually resolved and he still feels weak and a little bit lightheaded but no longer feels like he is going to pass out. Was not better worse positionally. REVIEW OF SYSTEMS: Eye: no change in vision ENT: HPI Cardiac: no chest pain or syncope Pulmonary: Not short of breath Abdomen: no vomiting, diarrhea, abdominal pain, decreased oral intake today Musculoskeletal: no back pain Skin: no rash Neuro: no headache Constitutional: no fever : no urinary symptoms A comprehensive 10 point review of systems is otherwise negative aside from elements mentioned in the history of present illness. PAST MEDICAL HISTORY: Includes coronary disease, pericarditis, peripheral vascular disease, hypertension, hyperlipidemia, DVT on Eliquis, leukemia. Admission in June of 2018 with pericardial effusion. Social history: Nonsmoker 36.9 General Appearance: Alert and conversant, cooperative. Eyes: No scleral icterus. ENT, Mouth: Normal mucous membranes. Respiratory: Normal respiratory effort, breath sounds equal, lungs are clear to auscultation. Cardiovascular: Regular rate and rhythm. No murmur. Gastrointestinal: Abdomen is soft and non tender. Neurological: Alert, face symmetric, normal motor and sensory in extremities. Skin: Warm and dry, no rashes. Musculoskeletal: No peripheral edema. Psychiatric: Not agitated. Emergency Department course/MDM: Patient discharge summary 07/09/2018 personally reviewed. EKG shows sinus rhythm. He did have documented hypotension prior to arrival but not bradycardia. However his pulse was not documented at the same time as his low blood pressure. Plan for IV fluids, he has had decreased oral intake today because of his cold symptoms. Troponin, chest x-ray, chemistries to include electrolytes and creatinine. Dr. Saravia from cardiology recommends echocardiogram, admission for monitoring of rhythm and blood pressure. Smoking Status: Never smoked Constitutional: Initial Vital Signs Heart Rate 78 10/10/18 12:20 Respiratory Rate 18 10/10/18 12:20 Blood Pressure 118/72 10/10/18 12:20 O2 Sat (%) 96 10/10/18 12:20 O2 Delivery Mode Room Air Allergies/Adverse Reactions: adhesive tape Allergy (Verified 10/10/18 12:22) BLISTERS latex Allergy (Verified 10/10/18 12:22) monosodium glutamate Allergy (Verified 10/10/18 12:22) ASTHMA Home Medications: Medication Instructions Recorded Multivitamins [Multivitamin (*)] 1 each PO DAILY 11/17/17 Atorvastatin Calcium [Lipitor 40 40 mg PO DAILY 04/06/18 mg (*)] Apixaban [Eliquis] 5 mg PO BID #30 tab 04/11/18 Albuterol [Proventil Inhaler HFA 1 puffs IH Q4H 07/01/18 (*)] Aspirin EC [Aspirin EC 81 mg (*)] 162 mg PO BID 07/01/18 Herbals/Supplements -Info Only 1 ea PO DAILY 07/01/18 Metoprolol Succinate Xr [Toprol Xl 25 mg PO DAILY #30 tab 07/09/18 25 mg (*)] Medical Decision Making - Diagnostics EKG Interpretation: 12-lead EKG interpreted by me; official reading is in computer system. My interpretation is sinus rhythm rate 69 with left atrial enlargement. Imaging Results: Imaging Impressions Chest X-Ray 10/10/18 12:38 Impression: 1. Grossly stable moderate loculated right pleural effusion with basilar consolidation most likely representing atelectasis. 2. Improved small left pleural effusion with basilar atelectasis. Imaging: I viewed and interpreted images myself Consult/Admit Bed Type: Dr. Saravia, 1324; [facility] for [facility] 1343 - Data Points Laboratory Results: Laboratory Results 10/10/18 12:30 10/10/18 12:30 10/10/18 10/10/18 10/10/18 12:35 12:30 12:30 WBC 6.03 10^3/uL 10^3/uL (3.80-9.50) RBC 5.26 10^6/uL 10^6/uL (4.40-6.38) Hgb 14.1 g/dL g/dL (13.7-17.5) Hct 44.5 % % (40.0-51.0) MCV 84.6 fL fL (81.5-99.8) MCH 26.8 pg L pg (27.9-34.1) MCHC 31.7 g/dL L g/dL (32.4-36.7) RDW 19.0 % H % (11.5-15.2) Plt Count 200 10^3/uL 10^3/uL (150-400) MPV 8.8 fL fL (8.7-11.7) Neut % (Auto) 63.0 % % (39.3-74.2) Lymph % (Auto) 11.6 % L % (15.0-45.0) Stephenson % (Auto) 18.2 % H % (4.5-13.0) Eos % (Auto) 5.3 % % (0.6-7.6) Baso % (Auto) 1.2 % % (0.3-1.7) Nucleat RBC Rel Count 0.0 % % (0.0-0.2) Absolute Neuts (auto) 3.80 10^3/uL 10^3/uL (1.70-6.50) Absolute Lymphs (auto) 0.70 10^3/uL L 10^3/uL (1.00-3.00) Absolute Monos (auto) 1.10 10^3/uL H 10^3/uL (0.30-0.80) Absolute Eos (auto) 0.32 10^3/uL 10^3/uL (0.03-0.40) Absolute Basos (auto) 0.07 10^3/uL 10^3/uL (0.02-0.10) Absolute Nucleated RBC 0.00 10^3/uL 10^3/uL (0-0.01) Immature Gran % 0.7 % % (0.0-1.1) Immature Gran # 0.04 10^3/uL 10^3/uL (0.00-0.10) Sodium 135 mEq/L mEq/L (135-145) Potassium 4.5 mEq/L mEq/L (3.5-5.2) Chloride 97 mEq/L mEq/L (97-110) Carbon Dioxide 25 mEq/l mEq/l (22-31) Anion Gap 13 mEq/L mEq/L (6-14) BUN 12 mg/dL mg/dL (7-23) Creatinine 1.0 mg/dL mg/dL (0.7-1.3) Estimated GFR > 60 Glucose 112 mg/dL H mg/dL (70-100) Calcium 9.4 mg/dL mg/dL (8.5-10.4) POC Troponin I 0.04 ng/mL ng/mL (0.00-0.08) Medications Given: Discontinued Medications Sodium Chloride (Ns) 500 mls @ 0 mls/hr IV EDNOW ONE; Wide Open PRN Reason: Protocol Stop: 10/10/18 12:55 Last Admin: 10/10/18 13:01 Dose: 500 mls Point of Care Test Results: Chemistry 10/10/18 12:35 POC Troponin I 0.04 ng/mL ng/mL (0.00-0.08) Departure - Departure Disposition: [facility] Inpatient Acute Clinical Impression: Near syncope Condition: Good
[2018-10-10 12:53] LABS: PLATELET COUNT 200 10^3/uL (150-400)
[2018-10-10] MEDS ORDERED: NS 500 ML IV ONE (12:54)
--- NOTE | 2018-10-10 14:11 | CPEKG ---
Test Reason : OPEN Blood Pressure : / mmHG Vent. Rate : 069 BPM Atrial Rate : 068 BPM P-R Int : 194 ms QRS Dur : 093 ms QT Int : 400 ms P-R-T Axes : 087 088 061 degrees QTc Int : 429 ms Sinus rhythm Probable left atrial enlargement Borderline right axis deviation Confirmed by Andres Costello ([id number]) on 10/10/2018 2:10:31 PM Referred By: PHYSICIAN ED Confirmed By:Andres Costello
[2018-10-10] MEDS ORDERED: ALBUTEROL 60 PUFFS/8 GM MDI IH PRN (15:19)
[2018-10-10] MEDS ORDERED: ACETAMINOPHEN 325 MG TAB PO PRN (15:30)
[2018-10-10] MEDS ORDERED: ONDANSETRON 4 MG/2 ML VIAL IVP PRN (15:30)
[2018-10-10] MEDS ORDERED: ONDANSETRON DISINTEGRATING 4 MG TAB PO PRN (15:30)
--- NOTE | 2018-10-10 16:13 | ECHO ---
[email or web address] [address] [address] Main: [phone] Fax: Transthoracic Echocardiogram Name: MO MCKINLEY MR#: [id number] Study Date: 10/10/2018 Study Time: 01:57 PM Date of : 1945 Age: 72 year(s) Height: 182.9 cm (72 in.) Weight: 68.04 kg (150 lb.) BSA: 1.89 m2 Gender: Male Examination: Limited Echo Indication: limited echo to assess for effusion Image Quality: Adequate Contrast: Requested by: Andres Costello BP: / Heart Rate: Rhythm: Indication: limited echo to assess for effusion Procedure Staff Tower Excavator Operator: Promise Lee [facility] Reading Physician: Stephanie Saravia MD Requesting Provider: Conclusions: Normal size left ventricle. Low normal left ventricular systolic function. The ejection fraction is estimated to be 50-55 %. No regional wall motion abnormality. No pericardial effusion. Measurements: Chambers Valvular Assessment AV/MV Valvular Assessment TV/PV Normal Normal Normal Name Value Range Name Value Range Name Value Range LVEF (MOD4): 52 % (>=55 %) EF Range: 50-55 % Continued Measurements: Findings: Left Ventricle: Normal size left ventricle. Low normal left ventricular systolic function. The ejection fraction is estimated to be 50-55 %. No regional wall motion abnormality. Pericardium: No pericardial effusion. (No Signature Object) Patient: MO MCKINLEY Study Date: 10/10/2018 Page 1 of 1 01:57 PM [id number]
--- NOTE | 2018-10-10 16:20 | GHP ---
[f rep st] HISTORY AND PHYSICAL DATE OF ADMISSION: 10/10/2018 CHIEF COMPLAINT: Near-syncope and hypotension. HISTORY OF PRESENT ILLNESS: This is a 72-year-old man with a history of peripheral vascular disease as well as CML who presents with a hypotensive episode. He has had a cold with associated runny nose , sore throat and mild cough for a few days. He has been taking some cough syrup. This morning he g ot up, took all of his medications on an empty stomach which is atypical for him. He went into the [employer] and was cooking some soup when he began to feel nauseous. Shortly after that, he felt quite d allison as if he was about to pass out. He sat down, was able to get his blood pressure monitor and too k his blood pressure. Multiple readings confirm blood pressures of approximately 68/58 with a pulse in the 70s. He did not actually pass out. This was not associated with any chest pain, shortness of breath, emesis or urge to urinate. Because it lasted for about 10 minutes they called EMS who took him to the Emergency Department. In the emergency department his blood pressures were relatively unr emarkable although he did not initially feel better. He did begin to feel better during his stay in the emergency room and is somewhat back to normal now. PAST MEDICAL/SURGICAL HISTORY: 1. CML. 2. Recent pneumonia. 3. Peripheral vascular disease which is due to his leukemia drug Tasigna. 4. Hypertension. 5. Hyperlipidemia. 6. History of a DVT on anticoagulation. MEDICATIONS: Please see medication reconciliation. ALLERGIES: Adhesive tape, latex and monosodium glutamate. SOCIAL HISTORY: He occasionally drinks alcohol. He has never smoked. FAMILY HISTORY: No CML. REVIEW OF SYSTEMS: A 10-point review of systems is conducted and is negative except per HPI. PHYSICAL EXAM: VITAL SIGNS: Blood pressure 167/86, heart rate 66, respiration rate 19 saturating at 96% on room air. Temperature is 37.0. GENERAL: The patient is a pleasant man who is resting comfo rtably in his bed, appears to be in no acute distress. HEENT: Shows him to be normocephalic, atraum atic. CARDIOVASCULAR: Distant S1 and S2. His rhythm is regular. I do not appreciate any murmurs, rubs, or gallops. PULMONARY: Shows mild right-sided basilar rales, otherwise he is in no respirator y distress. The rest of his lung bradford are clear. ABDOMEN: Soft, nontender, nondistended. SKIN: Shows no rash. : Exam shows no Dela Cruz. NEUROLOGIC: Exam shows him to be alert and oriented x3. He is moving all extremities. PSYCHIATRIC: Exam shows normal mood and affect. LABS: CBC shows a hemoglobin of 14, platelets 200. This metabolic panel is unremarkable with a crea tinine of 1.0. Point of care troponin is negative at 0.04. DATA: 1. Chest x-ray, which I personally viewed and interpreted. It shows a chronic loculated right basil ar pleural effusion. 2. EKG, which I personally viewed and interpreted, shows sinus rhythm. There are no T-wave inversio ns. No ST changes. 3. I reviewed his chart including the ED note. IMPRESSION AND PLAN: 1. Presyncope with hypotension: I think this is most consistent with a vagal reaction. Certainly t here is a broad more concerning differential, however. I will check an echocardiogram, trend troponi ns, an additional 2 times looking for significant rise as well as monitor him on telemetry. If above workup was unremarkable he may be discharged tomorrow. 2. History of chronic myelocytic leukemia. He and his are considering trying a new medication with Dr. Schaeffer. They have an appointment on Friday. 3. Peripheral vascular disease: This is thought to be brought on by to Jimmy. He had a femoral-p opliteal bypass as well as multiple angioplasties and episodes of in size of lysis. This is stable a t this point. 4. Recent pneumonia as well as chronic right-sided effusion which is also due to an old chemotherape utic drug. This seems stable at this point. 5. Recent cold: We will check respiratory panel to avoid exposing other staff if he is positive. 6. Code status is full. 7. Deep vein thrombosis: We will continue his Eliquis. /[id number]/MODL
[2018-10-10] MEDS ORDERED: ASPIRIN 325 MG TAB PO SCH (21:00)
[2018-10-10] MEDS: APIXABAN 5 MG TAB PO SCH (21:09)
[2018-10-11] MEDS: APIXABAN 5 MG TAB PO SCH (08:51)
[2018-10-11] MEDS ORDERED: ATORVASTATIN CALCIUM 40 MG TAB PO SCH (09:00)
[2018-10-11] MEDS ORDERED: METOPROLOL SUCCINATE XR 25 MG TAB PO SCH (09:45)
--- NOTE | 2018-10-11 09:49 | ASMTLACE ---
LACE Length of stay for Answers: Less than 1 day current admission Comorbidities - select Answers: Any tumor (including all that apply lymphoma or leukemia) Coronary Artery Disease Other Notes: HTN, peripheral vascula r disease # of Emergency department Answers: 3-4 visits in the last 6 months Score: 8 Date Signed: 10/11/2018 09:48 AM Electronically Signed By:Lisa Singh RN
--- NOTE | 2018-10-11 09:50 | ASMTCMCOM ---
CM Note CM Note Notes: Medically cleared for discharge to home. No needs identfied. CM available should needs arise. Plan: Discharge to home. Date Signed: 10/11/2018 09:49 AM Electronically Signed By:Lisa Singh RN
--- NOTE | 2018-10-11 12:31 | GDS ---
[f rep st] DISCHARGE SUMMARY ALL DIAGNOSES: 1. Presyncope, likely vasovagal. 2. Hypotension due to the above. 3. History of chronic myelogenous leukemia. 4. Recent pneumonia. 5. Coronavirus upper respiratory infection. 6. Peripheral vascular disease. HOSPITAL COURSE: A 72-year-old man admitted with an episode of presyncope. Symptoms most consistent with a vasovagal episode. He was quite hypotensive per his home monitor at the time. He has not been hypotensive here. He had an echocardiogram showing a low normal ejection fraction. Troponins have been unmeasurable x3. Telemetry showed infrequent PVC's but no more concerning arrhythmias overnight. Carotid ultrasound shows less than 50% stenosis bilateral. I think, overall, this is most consistent with vasovagal as he became nauseous immediately before he had this episode. He has recovered, and is back at his baseline today. He is ready for discharge. Of note, he had a cold recently, respiratory PCR showed coronavirus. He feels much better today. He is discharged to home in stable condition. /[id number]/MODL MTDD
[2018-10-11 12:47] VITALS: BP 147/89
--- NOTE | 2018-10-11 12:50 | GCON ---
[f rep st] CONSULTATION DATE OF CONSULTATION: 10/11/2018 REFERRING PHYSICIAN: Sharif Swann MD CHIEF COMPLAINT: We have been asked by Dr. Swann to evaluate the patient with an episode of presyncope. HISTORY OF PRESENT ILLNESS: Patient is a 72-year-old gentleman with a history of CML and pericardial effusion who presented on 10/10/2018 with an episode of presyncope. Patient was in his usual state of health until approximately 3-4 days prior to admission, when he developed an upper respiratory tract infection characterized by cough, sore throat, and sinus congestion. His symptoms gradually progressed over the next 2-3 days and were in the process of improving the day of admission. Patient reports waking up, going into his kitchen to make some breakfast. He was in the process of making a bowl of soup when he began to feel hot and sweaty as well as have symptoms of nausea. He then started to feel lightheaded, as if he might faint. He went into his bedroom, where he pulled out this pulse oximeter and took readings. Patient's pulse was in the 70s. He was not hypoxemic. Patient then took his blood pressure and noted his systolic blood pressure was in the high 60s to low 70s and his diastolic blood pressure was in the 50s. He was brought to the emergency department for further evaluation. In the emergency department, his blood pressure had returned to within normal limits. He had an EKG performed, demonstrating sinus rhythm, vertical axis, no significant ST or T-wave changes. He also had an echocardiogram performed, demonstrating normal left ventricular size and systolic function and no evidence of pericardial effusion. Patient was admitted to the hospital for observation. Patient's blood pressure remained within normal limits. Patient denies further episodes of presyncope. Telemetry monitoring demonstrated no significant arrhythmias. We have been asked to help in the further management of this patient. PAST MEDICAL HISTORY: 1. CML. 2. Peripheral vascular disease secondary to [place]. 3. Hypertension. 4. Hyperlipidemia. 5. History of DVT. 6. Paroxysmal atrial fibrillation. MEDICATIONS: Please see medicine reconciliation form. ALLERGIES: 1. Adhesive tape. 2. Latex. 3. Monosodium glutamate. SOCIAL HISTORY: Patient lives at home with his . He occasionally drinks alcohol. He does not smoke. FAMILY HISTORY: Negative for early-onset coronary artery disease. REVIEW OF SYSTEMS: Ten-point review of systems is negative except as noted in HPI. PHYSICAL EXAMINATION: GENERAL: Patient is resting comfortably in bed. He does not appear to be in acute distress at this time. VITALS: Temperature is afebrile. Pulse is 77, blood pressure 140/80, respiratory rate is 18, SaO2 is 95% on room air. HEENT: Normocephalic, atraumatic. Extraocular muscles intact. NECK: No JVD. There is a bruit in his left carotid artery. LUNGS: Clear to auscultation bilaterally. CARDIOVASCULAR: Regular rate and rhythm, S1 , S2. No murmurs, rubs, or gallops appreciated. ABDOMEN: Soft, nontender. Normoactive bowel sounds. No hepatosplenomegaly noted. EXTREMITIES: No clubbing, cyanosis, or edema. SKIN: No evidence of rashes. NEURO: Patient is awake, alert, and oriented x3. LABORATORY: White blood cell count is 6.03, hemoglobin is 14.1, hematocrit is 44.5, platelet count is 200. Sodium 135, potassium 4.5, chloride 97, CO2 is 25 , BUN 12, creatinine 1.0. Troponin within normal limits x2. EKG demonstrates sinus rhythm, vertical axis. No significant ST or T-wave changes. Chest x-ray demonstrates stable moderate loculated right pleural effusion. Echocardiogram demonstrates normal left ventricular size and systolic function and no significant wall motion abnormalities. Stress testing in August of 2017 was within normal limits. ASSESSMENT AND PLAN: The patient is a 72-year-old gentleman with: 1. Presyncope. Patient presents with an episode of presyncope associated with symptoms of nauseousness and diaphoresis. His pulse at the onset of symptoms was 70 beats per minute. His systolic blood pressure at the onset of symptoms was in the high 60s to low 70s. Patient's symptom complex is suggestive of a vagal etiology. Telemetry monitoring demonstrates no significant arrhythmias, making this a less likely explanation for his symptoms. Echocardiogram demonstrates normal left ventricular systolic function and no evidence of pericardial effusion, making this a less likely explanation for the patient's symptoms. We will plan on obtaining a carotid Doppler, given the evidence of bruit, although this would be an unlikely explanation for his symptoms. In addition, would consider repeat stress testing as an outpatient to exclude ischemia, although his biomarkers are within normal limits and patient remains highly active without symptoms of angina. 2. Carotid bruit. Patient has a carotid bruit on the left. We will plan on obtaining a carotid ultrasound to further evaluate his condition. /[id number]/MODL MTDD
== END 2018-10-11 13:58 | disposition home or self-care (01) ==
LOC: F2W 14:29
PROVIDERS: ADMIT Student in an Organized Health Care Education/Training Program; ATTEND Student in an Organized Health Care Education/Training Program
DX: R55 Syncope and collapse (principal); B34.2 Coronavirus infection, unspecified; I25.10 Atherosclerotic heart disease of native coronary artery without angina pectoris; I70.209 Unspecified atherosclerosis of native arteries of extremities, unspecified extremity; I10 Essential (primary) hypertension; E78.5 Hyperlipidemia, unspecified; Z86.718 Personal history of other venous thrombosis and embolism; Z79.01 Long term (current) use of anticoagulants; C92.10 Chronic myeloid leukemia, BCR/ABL-positive, not having achieved remission
CPT/HCPCS: 71046; 93005; 93308; 93880; G0378; 84484-ER

== ENCOUNTER → 2018-10-26 | Outpatient (CLI) | payer OTHER, MEDICARE | LOC: BHFA 13:00 | PROVIDERS: ATTEND Internal Medicine Interventional Cardiology | DX: R06.02 Shortness of breath (principal); R42 Dizziness and giddiness | CPT/HCPCS: 78452; 93017; A9500 ==